=== PATIENT | female | born 1940 | race Caucasian/White ===

== ENCOUNTER 2017-11-05 07:40 | Inpatient (IN) | payer MEDICARE, OTHER, SELFPAY ==
--- NOTE | 2017-10-29 10:12 | PCM.HP.BLA ---
History and Physical DATE OF SERVICE: 11/05/2017 SCHEDULED PROCEDURE: Left total hip arthroplasty HISTORY OF PRESENT ILLNESS: This is a 76-year-old female who is been having ongoing pain in bilateral hips for the past 2-3 years. Patient recently underwent a right total hip arthroplasty in July 2017. She is doing well from this procedure. She continues to have ongoing pain in the left hip. Patient was seen last year in 2017 for bilateral hip pain. Patient has increased pain going up and down stairs as well as for walking any amount of distance. She has difficult time with pain going from a seated to a standing position. She does state her balance is affected on her left hip. Patient has been through formal physical therapy with no significant relief in symptoms. Patient has been to a chiropractor in the past with minimal relief. Patient has tried oral medications in the past consisting of meloxicam with only temporary relief. She denies any previous surgery on the left hip. Patient does have medical history pertinent for previous blood clot in the left lung as well as pulmonary embolism. She has received previous clearance from her fitness supervisor Dr. Copeland. She currently denies any changes in her medical history. Patient denies any current chest pain, shortness of breath, fevers chills, or recent infections. After discussion with Dr. Rio Sanchez the patient would like to proceed with a left total hip arthroplasty. REVIEW OF SYSTEMS: ROS: Const: Denies change in appetite, fever,or weight change. CV: Denies chest pain, heart murmur and irregular heartbeat. Resp: Denies cough, pneumonia, SOB, tuberculosis and wheezing. GI: Reports constipation and diarrhea, but denies difficulty swallowing, heartburn, nausea, bloody stools and vomiting. : . (F Genital Sx) Urinary: denies incontinence. Musculo: Reports leg swelling, limp, trouble walking and weakness. Skin: Denies Raynaud's, history of shingles and tattoo. Neuro: Reports numbness/tingling but denies ambulatory dysfunction, dizziness and tremor. Psych: Denies anxiety, insomnia and stress. Iker/Lymph: Reports bleeding/bruising tendency, but denies anemia and past transfusion. Reviewed, no changes. PAST MEDICAL HISTORY: Advance Care Plan: Other Directive, LIVING WILL Effective Date: 04/29/2017 Other Directive, POA Effective Date: 04/29/2017 PMH: Medical Problems: Arthritis, Hypercholesterolemia, History Of Phlebitis Accidents: Fracture - LT ARM 1970 Surgical Hx: Hernia Repair Tonsillectomy - (1968) Fibroid Tumors Removed Hip Replacement RT - (07/30/2017) [email or web address] Anesthesia Complications: None Assistive Devices: Glasses Reviewed, no changes. SOCIAL HISTORY: SH: Marital: .Occupation: Retired.Work Status: Retired.Hand Dominance: Left-handed. Personal Habits: Cigarette Use: Former.Alcohol: Weekly use.Drug Use: Denies Use.Enjoy Exercising: Never Exercises. Reviewed, no changes. VITALS: Ht: 59 Wt: 146lb Wt k.226 BMI: 29.5 BP: 128/70 Pulse: 72 Resp: 16 T: 97.8 T: 36.6C ALLERGIES: Penicillin MEDICATIONS: Aspirin 81 mg 1po bid PRE-OP EXAM: General appearance:NORMAL Other: Eyes: Conjunctivae and lids: NORMAL Pupils: ERR Ears, Nose, Mouth, and Throat: NORMAL Other: Inspection of lips, teeth and gums: NORMAL Other: Neck: Examination of neck: no masses noted. Respiratory: Assessment of respiratory effort: NORMAL Other: Ausculation of lungs: clear to ausculation no wheeses, ronchi or rales. Cardiovascular: Ausculation of heart: regular rate and rhythem, positive systolic mummur, no gallops or rubs. Exam of carotid arteries: NORMAL Other: Gastrointestinal: Exam of abdomen: soft, nontender, nondistended bowel sounds present. Lymphatic: Palpation of nodes in neck: NORMAL Other: Palpation of nodes in Axillae: NORMAL Other: Neurological: see below Psychiatric: Orientation to time, place and person: NORMAL Other: Mood and affect: NORMAL Other: PHYSICAL EXAMINATION: She does walk with an antalgic gait on the left hip. Patient's right hip has incision well-healed with no evidence of any erythema or signs of infection. She does complain of tenderness to palpation over the anterior lateral left hip. She has limited range of motion on the left hip with increased pain with any attempted internal and external rotation. Sensation intact light touch. IMAGING STUDIES: X-rays were obtained at [facility] on October 29, 2017 including AP pelvis, AP left hip, and crossfire lateral left hip reveals severe osteoarthritis of left hip with complete loss of joint space, osteophyte formation, and subchondral sclerosis. Right hip reveals a right total hip arthroplasty sitting in good position without lucencies, subsidence, or loosening. No acute findings for fracture. IMPRESSION: 1. Severe left hip osteoarthritis 2. Presence of right total hip arthroplasty 3. History of blood clot and pulmonary embolism 4. Hypercholesterolemia PLAN: Dr. Sanchez did discuss and review with the patient all treatment options including surgical versus nonsurgical. Patient wishes to proceed with above-stated procedure. Potential risks, benefits, and complications of this procedure were discussed in detail including but not limited to , infection, nerve and blood vessel damage, persistent pain, numbness, tingling, paresthesias, blood clot, pulmonary embolism, and requirement for further surgery. The patient expressed full understanding has no further questions for the doctor. Patient does agree to proceed with the above-stated procedure and has signed the surgery consent form. Surgical clearance was obtained from patient's primary care physician Dr. Kumar ___ I have re-examined the patient. There are no clinical changes since date of exam. ___ See progress notes for changes. ___ Dictated on admission Date: Time: Signature:
[2017-10-29 10:20] VITALS: BP 114/57; PULSE 68; RESP 17; TEMP 37.2; O2SAT 97; BMI 29.5
[2017-10-29 11:03] LABS: Absolute Neutrophil Count 4.1 X10^3/uL (2.0-7.7); Basophil# 0.07 X10^3/uL; Basophil% 1.1 % (0-1); Eosinophils% 3.2 % (0-5); Hematocrit 35.9 % (37-47); Hemoglobin 11.6 g/dl (12.0-15.0); Lymphocyte % 22.5 % (19-41); Mean Corp Hgb Conc 32.3 g/gl (32-36); Mean Corpuscular Hgb 26.5 pg (27.0-32.0); Mean Corpuscular Volume 82.2 fL (81-99); Mean Platelet Vol. 9.4 fl (6.2-12.0); Monocyte# 0.45 X10^3/uL; Monocyte% 7.2 % (0-10); Neutrophil # 4.09 X10^3/uL (2.7-7.7); Platelet Count 204 K/mm3 (150-450); RBC Distribution Width CV 15.5 % (11.6-14.6); RBC Distribution Width SD 46.1 fl (35.1-43.9); Red Blood Count 4.37 M/mm3 (4.2-5.4); White Blood Count 6.2 K/mm3 (4.4-11.0)
[2017-10-29 11:04] LABS: POSITIVE COUNT NO; POSITIVE DIFFERENTIAL NO; POSITIVE MORPHOLOGY NO
[2017-10-29 11:12] LABS: Prothrombin Time (Protime)PT. 12.6 SECONDS (11.7-14.9)
[2017-10-29 11:13] LABS: Partial Thromboplast Time 24.6 Seconds (24.1-36.2)
[2017-10-29 11:33] LABS: AST(SGOT) 13 U/L (15-37); Alanine Aminotransfer ALT/SGPT 14 U/L (13-56); Albumin, Serum 3.2 g/dL (3.2-5.0); Alkaline Phosphatase 86 U/L (45-117); Anion Gap 8 (5-15); BUN 13 mg/dL (7-18); BUN/Creat Ratio 17.3 RATIO (10-20); Bilirubin, Direct 0.08 mg/dL (0.00-0.30); Calcium,Total 8.7 mg/dL (8.5-10.1); Chloride 106 mmol/L (98-107); Creatinine, Serum 0.75 mg/dL (0.55-1.02); EST Glomerular Filtration Rate 79 mL/min (>60); Est Glom Filt Rate - Afr Amer 96 mL/min (>60); Estimated Creatinine Clearance 49.24 ml/min; Globulin 4.1 g/dL (2.2-4.2); Glucose 129 mg/dL (74-106); Potassium 3.7 mmol/L (3.5-5.1); Protein, Total 7.3 g/dL (6.4-8.2); Sodium Level 141 mmol/L (136-145)
[2017-11-05] VITALS (12 sets, daily range): BP systolic 113–154; BP diastolic 53–91; PULSE 63–96; RESP 16–18; TEMP 36.3–37.1; O2SAT 91–99; BMI 29.5
--- NOTE | 2017-11-05 08:10 | RAD_ITS ---
STUDY: X-RAY - PELVIS AND LEFT HIP REASON FOR EXAM: Female, 76 years old. Postop left hip replacement TECHNIQUE: Radiological exam, hip, unilateral, with pelvis when performed; 1 view COMPARISON: 07/30/2017. FINDINGS: There is a non-specific bowel gas pattern. Normal visualized soft tissue structures. Normal bilateral iliac wings, sacroiliac joints and visualized sacrum. Normal bilateral superior and inferior pubic rami. Normal pubic symphysis. Normal bilateral ischial tuberosities. There are bilateral total hip arthroplasties. The arthroplasty on the left is recent and is in satisfactory position with no gross acute complication. RAD/Hip Min 2 Views (Portable) IMPRESSION: Grossly satisfactory appearance of bilateral hip arthroplasties. Electronically Signed: Chris Juan MD at 14:29 EST , Service support ,
[2017-11-05] MEDS: Acetaminophen 500 MG Tablet 1000 MG PO ×2 (08:24→21:18)
[2017-11-05] MEDS: oxyCODONE HCl Cr 10 MG Tablet PO (08:25)
[2017-11-05] MEDS: Celecoxib 200 MG Capsule 400 MG PO (08:25)
[2017-11-05] MEDS: Lactated Ringers 1,000 ML 999 ML IV (08:51)
[2017-11-05] MEDS: Clindamycin 600 MG/50 ML BAG 100 MG IV ×3 (10:22→21:20)
--- NOTE | 2017-11-05 10:37 | RAD_ITS ---
STUDY: X-RAY - PELVIS AND LEFT HIP REASON FOR EXAM: Female, 76 years old. Total hip preplacement TECHNIQUE: 7 C-arm views and 20 seconds fluoroscopy time. COMPARISON: None. FINDINGS: These views show a left hip arthroplasty in grossly satisfactory position. Correlate with procedure note. Electronically Signed: Chris Juan MD at 14:42 EST , Service support , RAD/Hip 1 view with Pelvis
--- NOTE | 2017-11-05 13:05 | PCM.OPRPT ---
Report of Operation Date of Procedure: 11/05/17 Pre-Operative Diagnosis: Left primary hip osteoarthritis Post-Operative Diagnosis: Left primary hip osteoarthritis Surgery/Procedure Performed:: Left direct anterior total hip replacement Description of Surgical Findings:: Stable hip with equal leg lengths car cleaning supervisor: Karin Wilkins Type of Anesthesia:: Spinal Anesthesiologist: Jose Dove Special Medications: 600 mg clindamycin, 1 g TXA at incision, 1 g TXA closure, 10 mg Decadron, joint cocktail (5 mg Duramorph, 30 mL of 0.5% Ropivicaine, 1000 units of epinephrine, 30 mg of Toradol) Specimen's removed: Bony cuts Estimated Blood Loss (mL): 300 Fluids Replaced: Crystalloid Description of Procedure: Components used: 1. [place] joyce femoral stem size 30 mm 2. [place] trident acetabular shell size 48 mm 3. [place] X3 polyethylene MDM liner 22.2 mm diameter, 38 mm outer diameter 4. Joyce 22.2 mm, 0mm femoral head 5. Joyce MDM metal liner alpha code D Brief history operative indications: 76 yo F who failed conservative measures for their hip osteoarthritis. X-rays were consistent with osteoarthritis including joint space narrowing, osteophyte formation and subchondral cysts. Total hip replacement was discussed with the patient with risks and benefits including but not limited to blood loss, DVTs, PEs, neurovascular damage, dislocation, general risks of anesthesia including loss of life. Patient demonstrated an understanding medical clearance is obtained the patient was consented for surgery. Procedure: On the date of procedure the patient's L hip was marked in the preoperative area. Patient was then taken back to the operating room where anesthesia assumed control of the C-spine and airway and administered anesthetic. Patient was transferred to the operating table and placed in the supine position. The hips were placed at the break of the bed and a sacral bump was placed. The L lower extremity was then prepped out in a sterile fashion using chlorhexidine while the surgeon scrubbed. Upon reentering the room the L lower extremity was draped in the standard orthopedic fashion and the incision was marked. A timeout was called and everyone agreed upon the side, the site, the procedure be performed, antibody given, and patient's identity. At this time incision was made through skin, subcutaneous tissue, and fat down to fascia. The fascia was then incised and the TFL was retracted laterally. A retractor was placed on the lateral border of the femoral neck. Attention was directed to the inferior portion of the approach and all crossing vessels were identified and appropriately coagulated. A retractor was then placed on the medial portion of the femoral neck. The anterior capsule was then cleared of all soft tissue and then H shaped capsulotomy was made. The retractors were then placed inside the capsule. The femoral neck was identified and a cleanup cut was made. At this time a power corkscrew was used to remove the femoral head. Attention was then turned toward the acetabulum where the soft tissues were appropriately retracted and the acetabulum was sequentially reamed to 47 mm. A 48 mm cup was then selected and impacted into place. MDM liner was impacted into place and locking mechanism was verified. The position of the acetabular cup was then verified under live fluoroscopy. The MDM liner was placed and locking mechanism was verified. Attention was then turned to the femur. Soft tissue releases on the medial and lateral femoral neck were appropriately done, the leg was externally rotated and lateralized. A Gallegos retractor was placed medially and proximally to the greater trochanter this allowed appropriate visualization and exposure of the femoral canal. Rongeour was then used to remove excess lateral bone. A canal finder and entry broach were used to open the proximal canal. Once we verified we were down the femoral canal we subsequently broached up to a size 33m [place] femur. The appropriate neck was placed in the previously selected head was trialed with a 0 mm neck. Traction was pulled and the hip was reduced with internal rotation. Once it was appropriately reduced and stability was checked. There was minimal shuck, equal leg lengths and appropriate stability with hyperextension and external rotation as well as with 90? flexion and internal rotation. Fluoroscopy was then also used to verify the position of the components and leg lengths using the contralateral side for comparison. The trial components were then dislocated the proximal femur was again exposed and the components were removed from the wound. The final components were verified and opened. The wound was copiously irrigated out with normal saline. The acetabulum was checked for any residual debris. The final components were cemented into place. After the cemented cured, traction and internal rotation were again used to reduce the hip. After adequate reduction the hip remained stable leg was couple millimeters longer. We attempted to remove the head from the [place] taper file a shorter neck in doing so the implant came out of the cement mantle. At this time live fluoroscopy was used to drill through the central core of the cement mantle. Osteotomes were used to remove the proximal cement mantle. We reamed the distal cement mantle. Once we are able to get the implant cemented deeper we then irrigated out the canal once more and we cemented the implant in. Once the cement had cured again a neck was trialed and the corresponding final implants were opened. Leg lengths are equal at this time. Final implants were then placed after dislocating trial implants. Final head was impacted and leg lengths were now equal with stable hip. The final components were once again checked with live fluoroscopy and were found to be satisfactory. The wound was then irrigated with normal saline once more, and hemostasis was obtained. Closure was then done using #1 Vicryl runner to close the fascia. A 2-0 vicryl interuppted sutures were used to close the subcutaneous skin. A 3-0 Monocryl and Steri-Strips were used for final skin closure. A Silverlon dressing was placed. Patient was awakened by anesthesia and transferred to the [facility]. Patient was then transferred to the PACU for recovery. Postoperative plan: Patient will get 24 hours postop antibiotics. Patient will get in-house physical therapy and will be weight-bear as tolerated. Patient will follow up in office in 2 weeks for a wound check and x-rays. Grafts/Implants Used: Joyce [place] stem - Complications None - Admit VTE Documentation VTE Present on Admission: No VTE Mechan Device Prophylaxis: SCD's, Thigh High TESHA Hose VTE Pharm Prophylaxis ordered?: Yes
--- NOTE | 2017-11-05 13:13 | OP.PCM_ITS ---
Report of Operation Date of Procedure: 11/05/17 Pre-Operative Diagnosis: Left primary hip osteoarthritis Post-Operative Diagnosis: Left primary hip osteoarthritis Surgery/Procedure Performed:: Left direct anterior total hip replacement Description of Surgical Findings:: Stable hip with equal leg lengths internal grinding machine operator: Karin Wilkins Type of Anesthesia:: Spinal Anesthesiologist: Jose Dove Special Medications: 600 mg clindamycin, 1 g TXA at incision, 1 g TXA closure, 10 mg Decadron, joint cocktail (5 mg Duramorph, 30 mL of 0.5% Ropivicaine, 1000 units of epinephrine, 30 mg of Toradol) Specimen's removed: Bony cuts Estimated Blood Loss (mL): 300 Fluids Replaced: Crystalloid Description of Procedure: Components used: 1. [place] joyce femoral stem size 30 mm 2. [place] trident acetabular shell size 48 mm 3. [place] X3 polyethylene MDM liner 22.2 mm diameter, 38 mm outer diameter 4. Joyce 22.2 mm, 0mm femoral head 5. Joyce MDM metal liner alpha code D Brief history operative indications: 76 yo F who failed conservative measures for their hip osteoarthritis. X-rays were consistent with osteoarthritis including joint space narrowing, osteophyte formation and subchondral cysts. Total hip replacement was discussed with the patient with risks and benefits including but not limited to blood loss, DVTs, PEs, neurovascular damage, dislocation, general risks of anesthesia including loss of life. Patient demonstrated an understanding medical clearance is obtained the patient was consented for surgery. Procedure: On the date of procedure the patient's L hip was marked in the preoperative area. Patient was then taken back to the operating room where anesthesia assumed control of the C-spine and airway and administered anesthetic. Patient was transferred to the operating table and placed in the supine position. The hips were placed at the break of the bed and a sacral bump was placed. The L lower extremity was then prepped out in a sterile fashion using chlorhexidine while the surgeon scrubbed. Upon reentering the room the L lower extremity was draped in the standard orthopedic fashion and the incision was marked. A timeout was called and everyone agreed upon the side, the site, the procedure be performed, antibody given, and patient's identity. At this time incision was made through skin, subcutaneous tissue, and fat down to fascia. The fascia was then incised and the TFL was retracted laterally. A retractor was placed on the lateral border of the femoral neck. Attention was directed to the inferior portion of the approach and all crossing vessels were identified and appropriately coagulated. A retractor was then placed on the medial portion of the femoral neck. The anterior capsule was then cleared of all soft tissue and then H shaped capsulotomy was made. The retractors were then placed inside the capsule. The femoral neck was identified and a cleanup cut was made. At this time a power corkscrew was used to remove the femoral head. Attention was then turned toward the acetabulum where the soft tissues were appropriately retracted and the acetabulum was sequentially reamed to 47 mm. A 48 mm cup was then selected and impacted into place. MDM liner was impacted into place and locking mechanism was verified. The position of the acetabular cup was then verified under live fluoroscopy. The MDM liner was placed and locking mechanism was verified. Attention was then turned to the femur. Soft tissue releases on the medial and lateral femoral neck were appropriately done, the leg was externally rotated and lateralized. A Gallegos retractor was placed medially and proximally to the greater trochanter this allowed appropriate visualization and exposure of the femoral canal. Rongeour was then used to remove excess lateral bone. A canal finder and entry broach were used to open the proximal canal. Once we verified we were down the femoral canal we subsequently broached up to a size 33m [place] femur. The appropriate neck was placed in the previously selected head was trialed with a 0 mm neck. Traction was pulled and the hip was reduced with internal rotation. Once it was appropriately reduced and stability was checked. There was minimal shuck, equal leg lengths and appropriate stability with hyperextension and external rotation as well as with 90? flexion and internal rotation. Fluoroscopy was then also used to verify the position of the components and leg lengths using the contralateral side for comparison. The trial components were then dislocated the proximal femur was again exposed and the components were removed from the wound. The final components were verified and opened. The wound was copiously irrigated out with normal saline. The acetabulum was checked for any residual debris. The final components were cemented into place. After the cemented cured, traction and internal rotation were again used to reduce the hip. After adequate reduction the hip remained stable leg was couple millimeters longer. We attempted to remove the head from the [place] taper file a shorter neck in doing so the implant came out of the cement mantle. At this time live fluoroscopy was used to drill through the central core of the cement mantle. Osteotomes were used to remove the proximal cement mantle. We reamed the distal cement mantle. Once we are able to get the implant cemented deeper we then irrigated out the canal once more and we cemented the implant in. Once the cement had cured again a neck was trialed and the corresponding final implants were opened. Leg lengths are equal at this time. Final implants were then placed after dislocating trial implants. Final head was impacted and leg lengths were now equal with stable hip. The final components were once again checked with live fluoroscopy and were found to be satisfactory. The wound was then irrigated with normal saline once more, and hemostasis was obtained. Closure was then done using #1 Vicryl runner to close the fascia. A 2-0 vicryl interuppted sutures were used to close the subcutaneous skin. A 3-0 Monocryl and Steri-Strips were used for final skin closure. A Silverlon dressing was placed. Patient was awakened by anesthesia and transferred to the [facility]. Patient was then transferred to the PACU for recovery. Postoperative plan: Patient will get 24 hours postop antibiotics. Patient will get in-house physical therapy and will be weight-bear as tolerated. Patient will follow up in office in 2 weeks for a wound check and x-rays. Grafts/Implants Used: Joyce [place] stem - Complications None - Admit VTE Documentation VTE Present on Admission: No VTE Mechan Device Prophylaxis: SCD's, Thigh High TESHA Hose VTE Pharm Prophylaxis ordered?: Yes
[2017-11-05] MEDS: Scopolamine 1mg/72hr Patch 1 PATCH TD (14:22)
[2017-11-05] MEDS: Lactated Ringers 1,000 ML 125 ML IV (20:10)
[2017-11-05] MEDS: Famotidine 20 MG Tablet PO (21:18)
[2017-11-05] MEDS: Senna/Docusate Sodium 1 Tablet 2 TABLET PO (21:19)
[2017-11-06 02:00] VITALS: BP 100/54; PULSE 72; RESP 18; TEMP 36.4; O2SAT 94
[2017-11-06] MEDS: Clindamycin 600 MG/50 ML BAG 100 MG IV (04:07)
[2017-11-06] MEDS: oxyCODONE 5 MG Tablet PO ×3 (04:19→18:20)
[2017-11-06] MEDS: 0.9% NaCl Peripheral Flush Adult/Peds IV ×2 (05:37→22:27)
[2017-11-06] MEDS: Acetaminophen 500 MG Tablet 1000 MG PO ×3 (05:38→22:27)
[2017-11-06] MEDS: Rivaroxaban 10 MG Tablet PO (05:38)
[2017-11-06 06:34] LABS: Anion Gap 7 (5-15); BUN 10 mg/dL (7-18); BUN/Creat Ratio 13.3 RATIO (10-20); Chloride 107 mmol/L (98-107); Creatinine, Serum 0.75 mg/dL (0.55-1.02); EST Glomerular Filtration Rate 79 mL/min (>60); Est Glom Filt Rate - Afr Amer 96 mL/min (>60); Estimated Creatinine Clearance 49.24 ml/min; Glucose 164 mg/dL (74-106); Potassium 4.3 mmol/L (3.5-5.1); Sodium Level 141 mmol/L (136-145)
[2017-11-06 06:45] LABS: Hematocrit 26.9 % (37-47); Hemoglobin 8.4 g/dl (12.0-15.0); Mean Corp Hgb Conc 31.2 g/gl (32-36); Mean Corpuscular Hgb 26.3 pg (27.0-32.0); Mean Corpuscular Volume 84.3 fL (81-99); Mean Platelet Vol. 9.9 fl (6.2-12.0); Platelet Count 185 K/mm3 (150-450); RBC Distribution Width CV 15.2 % (11.6-14.6); RBC Distribution Width SD 45.8 fl (35.1-43.9); Red Blood Count 3.19 M/mm3 (4.2-5.4); White Blood Count 10.7 K/mm3 (4.4-11.0)
[2017-11-06 07:01] LABS: Scan Indicated on CBC? Y/N NO
--- NOTE | 2017-11-06 07:26 | PCM.PN.ORT ---
Subjective: The patient was sitting in bed upon examination. Patient denies any chest pain, shortness of breath, dizziness, lightheadedness, nausea or vomiting, or calf pain. Pain is controlled on medications. No adverse overnight events. Patient plans to go back to [facility]. Case management is on board with assisting with placement. Objective: Vital signs stable and afebrile. Patient is able to plantarflex and dorsiflex actively. Sensation is intact to light touch to saphenous, sural, superficial and deep peroneal, and tibial distribution. Dressing is clean dry and intact. Negative Homans bilaterally, negative signs and symptoms of DVT. - Physical Exam General: Alert, Oriented x3, Cooperative, No apparent distress Vital Signs Temp Pulse Resp BP Pulse Ox 97.5 F L 72 18 100/54 L 94 11/06/17 02:00 11/06/17 02:00 11/06/17 02:00 11/06/17 02:00 11/06/17 02:00 Oxygen Flow Rate 2 Oxygen Delivery Method Room Air Weight: 66.2 kg Body Mass Index (BMI) 29.5 Intake and Output for Last 24 Hours 11/04/17 11/05/17 11/06/17 23:59 23:59 23:59 Intake Total 2727 / 2727 1754 / 1754 Output Total 1100 / 1100 Balance 2727 / 2727 654 / 654 Laboratory Tests Past 24 Hrs 11/06/17 11/06/17 05:58 05:58 WBC 10.7 RBC 3.19 L Hgb 8.4 L Hct 26.9 L MCV 84.3 MCH 26.3 L MCHC 31.2 L RDW 15.2 H RDW Differential 45.8 H Plt Count 185 MPV 9.9 Sodium 141 Potassium 4.3 Chloride 107 Carbon Dioxide 27.0 Anion Gap 7 BUN 10 Creatinine 0.75 Estim Creat Clear Calc 49.24 Est GFR (MDRD) Af Amer 96 Est GFR (MDRD) Non-Af 79 BUN/Creatinine Ratio 13.3 Glucose 164 H Calcium 8.0 L Assessment/Plan 1. S/P left total hip arthroplasty POD #1 2. Continue Pain Medications: Tylenol and OxyIR 3. DVT Prophylaxis: Xarelto 4. PT/OT: Weightbearing as tolerated 5. H & H: 8.4/26.9, asymptomatic 6. Encouraged Incentive Spirometry 7. Disposition: Plan will be for possible discharge tomorrow to [facility] living. Case management involved with placement.
--- NOTE | 2017-11-06 07:29 | PN.ORTHO_ITS ---
Subjective: The patient was sitting in bed upon examination. Patient denies any chest pain , shortness of breath, dizziness, lightheadedness, nausea or vomiting, or calf pain. Pain is controlled on medications. No adverse overnight events. Patient plans to go back to [facility]. Case management is on board with assisting with placement. Objective: Vital signs stable and afebrile. Patient is able to plantarflex and dorsiflex actively. Sensation is intact to light touch to saphenous, sural, superficial and deep peroneal, and tibial distribution. Dressing is clean dry and intact. Negative Homans bilaterally, negative signs and symptoms of DVT. - Physical Exam General: Alert, Oriented x3, Cooperative, No apparent distress Vital Signs Temp Pulse Resp BP Pulse Ox 97.5 F L 72 18 100/54 L 94 11/06/17 02:00 11/06/17 02:00 11/06/17 02:00 11/06/17 02:00 11/06/17 02:00 Oxygen Flow Rate 2 Oxygen Delivery Method Room Air Weight: 66.2 kg Body Mass Index (BMI) 29.5 Intake and Output for Last 24 Hours 11/04/17 11/05/17 11/06/17 23:59 23:59 23:59 Intake Total 2727 / 2727 1754 / 1754 Output Total 1100 / 1100 Balance 2727 / 2727 654 / 654 Laboratory Tests Past 24 Hrs 11/06/17 11/06/17 05:58 05:58 WBC 10.7 RBC 3.19 L Hgb 8.4 L Hct 26.9 L MCV 84.3 MCH 26.3 L MCHC 31.2 L RDW 15.2 H RDW Differential 45.8 H Plt Count 185 MPV 9.9 Sodium 141 Potassium 4.3 Chloride 107 Carbon Dioxide 27.0 Anion Gap 7 BUN 10 Creatinine 0.75 Estim Creat Clear Calc 49.24 Est GFR (MDRD) Af Amer 96 Est GFR (MDRD) Non-Af 79 BUN/Creatinine Ratio 13.3 Glucose 164 H Calcium 8.0 L Assessment/Plan 1. S/P left total hip arthroplasty POD #1 2. Continue Pain Medications: Tylenol and OxyIR 3. DVT Prophylaxis: Xarelto 4. PT/OT: Weightbearing as tolerated 5. H & H: 8.4/26.9, asymptomatic 6. Encouraged Incentive Spirometry 7. Disposition: Plan will be for possible discharge tomorrow to [facility] living. Case management involved with placement.
[2017-11-06] MEDS: Aspirin E.C. 81 MG Tablet PO (08:24)
[2017-11-06] MEDS: Famotidine 20 MG Tablet PO (08:24)
[2017-11-06] MEDS: Ascorbic Acid 500 MG Tablet PO (08:24)
[2017-11-06] MEDS: Senna/Docusate Sodium 1 Tablet 2 TABLET PO ×2 (08:24→22:27)
[2017-11-06 08:30] VITALS: BP 94/80; PULSE 62; RESP 18; TEMP 36.7; O2SAT 95
--- NOTE | 2017-11-06 08:32 | CASEMGMT ---
Social Work Note Note from staff that pt's son, Brett Reyes, is POA with numbers listed. Placed call to Brett who states that the pt is at independent living at [facility] and to coordinate with Eri, admissions at [facility], for a short respite stay at assisted living before returning to independent living as after her last surgery she went to independent and the first few days were very difficult. Placed call to Eri at [facility], . Eri confirms that plan is to go to assisted living prior to return to independent living and she will fax and H&P form for physician to sign as they will need this completed for her to be admitted to [facility]. Clinical updates faxed and SW to continue to follow and assist with discharge. Anticipate discharge tomorrow, 11/07. Plan: [facility]. Terri Barboza, CHIEF OF VITAL STATISTICS, STUD SETTER
[2017-11-06 14:00] VITALS: BP 114/58; PULSE 88; RESP 18; TEMP 36.7; O2SAT 95
[2017-11-06 20:00] VITALS: BP 105/48; PULSE 86; RESP 16; TEMP 36.9; O2SAT 94
[2017-11-07 02:00] VITALS: BP 113/60; PULSE 81; RESP 18; TEMP 36.9; O2SAT 94
[2017-11-07] MEDS: Ketorolac 15 MG/ML Vial IV (02:00)
[2017-11-07] MEDS: 0.9% NaCl Peripheral Flush Adult/Peds IV (02:01)
[2017-11-07 06:22] LABS: Hematocrit 26.3 % (37-47); Hemoglobin 8.2 g/dl (12.0-15.0); Mean Corp Hgb Conc 31.2 g/gl (32-36); Mean Corpuscular Hgb 26.1 pg (27.0-32.0); Mean Corpuscular Volume 83.8 fL (81-99); Mean Platelet Vol. 9.7 fl (6.2-12.0); Platelet Count 168 K/mm3 (150-450); RBC Distribution Width CV 16.1 % (11.6-14.6); RBC Distribution Width SD 49.1 fl (35.1-43.9); Red Blood Count 3.14 M/mm3 (4.2-5.4); White Blood Count 8.9 K/mm3 (4.4-11.0)
[2017-11-07 06:23] LABS: Scan Indicated on CBC? Y/N NO
--- NOTE | 2017-11-07 06:46 | PCM.PN.ORT ---
Subjective: The patient was sitting in bedside chair upon examination. Patient denies any chest pain, shortness of breath, dizziness, lightheadedness, nausea or vomiting, or calf pain. No adverse overnight events. Patient does say she has difficult time with performing straight leg raise and does complain of pain in the anterior thigh. Patient states physical therapy has been difficult and does cause pain. Pain medications are helping. Plan is for patient to return [facility] living when ready for discharge. Objective: Vital signs stable and afebrile. Patient is able to plantarflex and dorsiflex actively. Sensation is intact to light touch to saphenous, sural, superficial and deep peroneal, and tibial distribution. Dressing is clean dry and intact. Swelling to left thigh, soft and supple Negative Homans bilaterally, negative signs and symptoms of DVT. - Physical Exam General: Alert, Oriented x3, Cooperative, No apparent distress Vital Signs Temp Pulse Resp BP Pulse Ox 98.5 F 81 18 113/60 94 11/07/17 02:00 11/07/17 02:00 11/07/17 02:00 11/07/17 02:00 11/07/17 02:00 Oxygen Flow Rate 2 Oxygen Delivery Method Room Air Weight: 66.2 kg Body Mass Index (BMI) 29.5 Intake and Output for Last 24 Hours 11/05/17 11/06/17 11/07/17 23:59 23:59 23:59 Intake Total 2727 / 2727 2654 / 2654 260 / 260 Output Total 1600 / 1600 Balance 2727 / 2727 1054 / 1054 260 / 260 Laboratory Tests Past 24 Hrs 11/06/17 11/07/17 05:58 05:35 WBC 10.7 8.9 RBC 3.19 L 3.14 L Hgb 8.4 L 8.2 L Hct 26.9 L 26.3 L MCV 84.3 83.8 MCH 26.3 L 26.1 L MCHC 31.2 L 31.2 L RDW 15.2 H 16.1 H RDW Differential 45.8 H 49.1 H Plt Count 185 168 MPV 9.9 9.7 Assessment/Plan 1. S/P left total hip arthroplasty POD # 2. Continue Pain Medications: Tylenol and OxyIR 3. DVT Prophylaxis: Xarelto 4. PT/OT: Weightbearing as tolerated 5. H & H: 8.2/26.3, asymptomatic 6. Encouraged Incentive Spirometry 7. Disposition: Plan will be for possible discharge today to [facility] if patient tolerates physical therapy and pain is controlled on medications. Prescriptions will be attached to chart. Patient will follow-up per postop instructions.
--- NOTE | 2017-11-07 06:53 | PN.ORTHO_ITS ---
Subjective: The patient was sitting in bedside chair upon examination. Patient denies any chest pain, shortness of breath, dizziness, lightheadedness, nausea or vomiting , or calf pain. No adverse overnight events. Patient does say she has difficult time with performing straight leg raise and does complain of pain in the anterior thigh. Patient states physical therapy has been difficult and does cause pain. Pain medications are helping. Plan is for patient to return [facility] living when ready for discharge. Objective: Vital signs stable and afebrile. Patient is able to plantarflex and dorsiflex actively. Sensation is intact to light touch to saphenous, sural, superficial and deep peroneal, and tibial distribution. Dressing is clean dry and intact. Swelling to left thigh, soft and supple Negative Homans bilaterally, negative signs and symptoms of DVT. - Physical Exam General: Alert, Oriented x3, Cooperative, No apparent distress Vital Signs Temp Pulse Resp BP Pulse Ox 98.5 F 81 18 113/60 94 11/07/17 02:00 11/07/17 02:00 11/07/17 02:00 11/07/17 02:00 11/07/17 02:00 Oxygen Flow Rate 2 Oxygen Delivery Method Room Air Weight: 66.2 kg Body Mass Index (BMI) 29.5 Intake and Output for Last 24 Hours 11/05/17 11/06/17 11/07/17 23:59 23:59 23:59 Intake Total 2727 / 2727 2654 / 2654 260 / 260 Output Total 1600 / 1600 Balance 2727 / 2727 1054 / 1054 260 / 260 Laboratory Tests Past 24 Hrs 11/06/17 11/07/17 05:58 05:35 WBC 10.7 8.9 RBC 3.19 L 3.14 L Hgb 8.4 L 8.2 L Hct 26.9 L 26.3 L MCV 84.3 83.8 MCH 26.3 L 26.1 L MCHC 31.2 L 31.2 L RDW 15.2 H 16.1 H RDW Differential 45.8 H 49.1 H Plt Count 185 168 MPV 9.9 9.7 Assessment/Plan 1. S/P left total hip arthroplasty POD # 2. Continue Pain Medications: Tylenol and OxyIR 3. DVT Prophylaxis: Xarelto 4. PT/OT: Weightbearing as tolerated 5. H & H: 8.2/26.3, asymptomatic 6. Encouraged Incentive Spirometry 7. Disposition: Plan will be for possible discharge today to [facility] if patient tolerates physical therapy and pain is controlled on medications. Prescriptions will be attached to chart. Patient will follow-up per postop instructions.
--- NOTE | 2017-11-07 06:57 | PCM.DC.THR ---
Discharge Diet: No Restrictions Discharge Activity: May Not Drive - while taking narcotic pain medications. May shower in (days): 1 - Turned dressing away from water Weight Bearing Status: Weight bearing as tolerated Additional Activity Instructions:: Wear elastic stockings for 2 weeks. DO NOT use alcohol with narcotic pain medication. DO NOT make important decisions while taking narcotic medication. If you have problems with taking your medication (rash, itching, nausea, etc.) call the office at once. Call your doctor if your incision/area has: Increased Pain/ Swelling, Increased Redness, Foul Smelling Discharge Call your doctor if you observe: Fever of 101 or Higher Remove Dressing in (days):: 3 - Okay to remove on November 10, 2017 Additional Instructions: Follow [facility] postop instructions Allergies/Adverse Reactions: Allergies Penicillins [PCN] Allergy (Verified 10/29/17 10:14) Swelling Medications to take at Discharge Aspirin [Aspirin EC] 81 mg PO DAILY 07/18/17 Ascorbic Acid [Vitamin C] 500 mg PO DAILY 10/29/17 Cholecalciferol (Vitamin D3) [Vitamin D3] 1,000 unit PO DAILY 10/29/17 Acetaminophen [Tylenol] 1,000 mg PO Q8 #90 tab 11/07/17 Oxycodone [Oxyir] 5 - 10 mg PO Q4H PRN PRN 7 Days #80 tab 11/07/17 Rivaroxaban [Xarelto] 10 mg PO DAILY@0600 #12 tab 11/07/17 Senna/Docusate Sodium [Senokot-S] 2 tab PO BID #20 tab 11/07/17 The following prescriptions were given: Oxycodone [Oxyir] 5 - 10 mg PO Q4H PRN PRN 7 Days #80 tab PRN Reason: Mod-Severe Pain (4-10/10) Acetaminophen [Tylenol] 1,000 mg PO Q8 #90 tab Rivaroxaban [Xarelto] 10 mg PO DAILY@0600 #12 tab Senna/Docusate Sodium [Senokot-S] 2 tab PO BID #20 tab Primary Care Physician: Joel Kumar MD [Primary Care Provider] - Please Follow Up With: Physical therapy at [facility] Please Follow Up With: Reji Wright PA-C When: 11/19/17 @ 8:45 am
[2017-11-07] MEDS: Rivaroxaban 10 MG Tablet PO (07:03)
[2017-11-07] MEDS: Acetaminophen 500 MG Tablet 1000 MG PO ×2 (07:03→13:38)
[2017-11-07 08:00] VITALS: BP 136/59; PULSE 73; RESP 16; TEMP 36.6; O2SAT 95
[2017-11-07] MEDS: Famotidine 20 MG Tablet PO (08:16)
[2017-11-07] MEDS: Ascorbic Acid 500 MG Tablet PO (08:16)
[2017-11-07] MEDS: Aspirin E.C. 81 MG Tablet PO (08:16)
[2017-11-07] MEDS: oxyCODONE 5 MG Tablet PO ×2 (08:18→15:55)
--- NOTE | 2017-11-07 09:05 | PCA ---
pt in therapy
[2017-11-07 13:33] VITALS: BP 125/71; PULSE 78; RESP 16; TEMP 36.8; O2SAT 98
--- NOTE | 2017-11-07 17:44 | NURSING ---
Farzad Wright called in at 1530 to states that he was going to d/c patient. Notified by Diamond Jensen that the [employer] van only runs until 1600. This RN called Sharon at 1532- verified that they would be able to supervisor picking crew patient. Notified that they could at 1600. This RN called retail pharmacy and notified of situation and asked if they could fill script so that it is ready in 30minutes- notified that they would try. this RN received call at 1555 stating that the bill for xarelto alone would be >$100.00. Patient shocked- Farzad Gradyjeanmariefina notified and states she must have medication xarelto that is expensive due to history of blood clots. Notified of cost- again states she must have medication. Notified patient and she states that she has insurance and to check if her insurance is on file. Notified from [employer] that [employer]a is on file but that was all. Patient states she has medical mutual. At this time advanced quality engineer arrived. This RN asked if she had a card, she states she couldn't find it and requested this RN call her son Brett. Pt notified that her prescriptions will cost $186. This RN called Brett and at that moment patient states she found her medical [employer] card and handed it to this RN. This RN notified Brett of patient's discharge at this time. Then, this RN called pharmacy to notify them of patient's card- [employer] requested pharmacy number from card- card did not have a number. [employer] states there should be a separate card for pharmacy. This RN asked patient as she sifted through her cards- could not locate one. Patient asked this RN to contact her son again- this RN called him and he states he doesn't have any cards off hand, as he is at work. Notified of cost of 186 and he states to just get the prescription papers and send them with patient. States he will have time to get them filled. patient given prn oxyir and assisted downstairs to [employer] with this RN and the [employer] stage driver. This RN picked up patient's prescriptions for her and she folded all 4 and stuck in her pocket. Patient very discouraged with issues- apologies offered.
== END 2017-11-07 16:26 | disposition home or self-care (01) | DRG 470 ==
PROVIDERS: Anesthesiology; Admitting Provider Specialist; Family Provider Family Medicine; PCP Family Medicine; Visit Provider Specialist
PROC: 0SRB0J9 Replacement of Left Hip Joint with Synthetic Substitute, Cemented, Open Approach (ICD-10-PCS; CPT 27284; principal; 2017-11-05 09:35)
DX: M16.12 Unilateral primary osteoarthritis, left hip (principal); E78.00 Pure hypercholesterolemia, unspecified; Z86.711 Personal history of pulmonary embolism; Z96.651 Presence of right artificial knee joint
CPT/HCPCS: 36415; 73501; 73502; 76000; 80048; 80076; 85025; 85027; 85610; 85730; 87081; 97110; 97116; 97162; 97165; 97530; 97535; 97802; 99251; J7120; A4216; G0463; J2405

== ENCOUNTER 2018-05-14 12:15 | Emergency (ER) | payer MEDICARE, OTHER, SELFPAY ==
[2018-05-14 12:16] VITALS: BP 139/72; PULSE 73; RESP 16; TEMP 36.8; O2SAT 99; BMI 28.5
--- NOTE | 2018-05-14 13:14 | ED.VISSUMM ---
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 She has had bilateral hip replacements. Earlier this year. She is undergoing physical therapy. States she had physical therapy several days ago. She was concerned because she has discomfort in her anterior and posterior right lower leg and calf. She had a prior blood clot was concerned that it could be a blood clot versus just overuse of the leg with therapy. She denies any falls or trauma. No fever. She denies any significant hip, knee or ankle pain. She denies any redness, swelling or fever. Physical Examination: Well-appearing older female. Vital signs are stable afebrile. Pulse ox 99% on room air no hypoxia. No distress. H EENT exam unremarkable. Neck nontender. Lungs clear to auscultation bilaterally. Heart regular rhythm no murmur. Abdomen soft nontender. Extremities moves all 4. Right calf has mild tenderness both anteriorly and posterior. There is no cords. No edema. She does have varicose veins. There is no signs of phlebitis. Otherwise the hamstring and thigh are nontender. She has normal range of motion to her right ankle. Dorsi and plantar flexion intact. Normal motor strength and sensation. Normal DP pulse. There is no redness or warmth. Back exam is nontender no SI tenderness on the right. Neurologic exam is normal. She is awake alert with no focal motor deficits. Test Results: Right leg venous study per the component technician shows no DVT. Emergency Department Course and Treatment: Clinically I think the patient just has musculoskeletal pain. This does not appear to be a DVT. Treatment Plan: Repeat exam unchanged at 1333. Patient be discharged home. Tylenol and Motrin for pain. Disposition: Discharge Impression: Acute right lower extremity musculoskeletal strain This note was generated with [employer] dictation software. It may contain incorrect words, spelling, and punctuation that were not noted in review of the chart prior to signing ED Disposition - Plan for ED Patient: Chief Complaint: Lower Extremity Injury Referrals: Joel Kumar MD [Primary Care Provider] -
--- NOTE | 2018-05-14 13:17 | ED.DCSUM_ITS ---
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 She has had bilateral hip replacements. Earlier this year. She is undergoing physical therapy. States she had physical therapy several days ago. She was concerned because she has discomfort in her anterior and posterior right lower leg and calf. She had a prior blood clot was concerned that it could be a blood clot versus just overuse of the leg with therapy. She denies any falls or trauma. No fever. She denies any significant hip, knee or ankle pain. She denies any redness, swelling or fever. Physical Examination: Well-appearing older female. Vital signs are stable afebrile. Pulse ox 99% on room air no hypoxia. No distress. H EENT exam unremarkable. Neck nontender. Lungs clear to auscultation bilaterally. Heart regular rhythm no murmur. Abdomen soft nontender. Extremities moves all 4. Right calf has mild tenderness both anteriorly and posterior. There is no cords. No edema. She does have varicose veins. There is no signs of phlebitis. Otherwise the hamstring and thigh are nontender. She has normal range of motion to her right ankle. Dorsi and plantar flexion intact. Normal motor strength and sensation. Normal DP pulse. There is no redness or warmth. Back exam is nontender no SI tenderness on the right. Neurologic exam is normal. She is awake alert with no focal motor deficits. Test Results: Right leg venous study per the hemodialysis technician shows no DVT. Emergency Department Course and Treatment: Clinically I think the patient just has musculoskeletal pain. This does not appear to be a DVT. Treatment Plan: Repeat exam unchanged at 1333. Patient be discharged home. Tylenol and Motrin for pain. Disposition: Discharge Impression: Acute right lower extremity musculoskeletal strain This note was generated with [employer] dictation software. It may contain incorrect words, spelling, and punctuation that were not noted in review of the chart prior to signing ED Disposition - Plan for ED Patient: Chief Complaint: Lower Extremity Injury Referrals: Joel Kumar MD [Primary Care Provider] -
--- NOTE | 2018-05-14 13:34 | ED.DEP ---
ED Disposition - Plan for ED Patient: Disposition: Home or Assisted Living Chief Complaint: Lower Extremity Injury Instructions: ED Strain Muscle Ext Referrals: Joel Kumar MD [Primary Care Provider] - 1 Week if not improving Additional Instructions: Plenty of fluids. The ultrasound showed no signs of any blood clot. Tylenol and Motrin for pain. Most likely this is just strained muscles from overuse.
[2018-05-14 13:43] VITALS: RESP 14
== END 2018-05-14 13:58 | disposition home or self-care (01) ==
PROVIDERS: Emergency Provider Emergency Medicine; Family Provider Family Medicine; PCP Family Medicine
DX: S86.211A Strain of muscle(s) and tendon(s) of anterior muscle group at lower leg level, right leg, initial encounter (principal); S86.111A Strain of other muscle(s) and tendon(s) of posterior muscle group at lower leg level, right leg, initial encounter; Z86.718 Personal history of other venous thrombosis and embolism; M19.90 Unspecified osteoarthritis, unspecified site; X58.XXXA Exposure to other specified factors, initial encounter; Y93.89 Activity, other specified; Y92.89 Other specified places as the place of occurrence of the external cause; Y99.9 Unspecified external cause status
CPT/HCPCS: 93971; 99282

== ENCOUNTER 2018-05-19 14:00 | Outpatient (RCR) | payer MEDICARE, OTHER, SELFPAY ==
--- NOTE | 2018-01-01 13:20 | HP.PTEVAL ---
Patient's Visit Information ROBERT READ is a 77 year old F referred to Physical Therapy by Robbie Sanchez MD with a diagnosis of B ARMOND. Date of Evaluation: 01/01/18 Physical Therapist: Aaron Gan, PT, - Visit Plan Frequency: 2-3x /Week Duration: 6 Weeks Plan: B LE stretching and strengthening, core stab ex's, balance and proprio ex's, gait training, nustep, and HEP - Subjective Subjective: DOS: R ARMOND August of 2017, then L ARMOND October 2017. Pt reports she had Bilat hip pain for 10 years prior to having the surgeries performed. Pt reports she is glad to have had the surgery secondary to alleviating the pain, but she is still very limited with her mobility. Pt reports she has had a little tingling in her R calf since having the surgery. No other Tor N in LE's. No sleep diff secondary to pain. Pt has not tried any stairs at this time. 0/10 at rest, 6/10 at worst (turning the wrong way, and sit to stand transfers after sitting a long period of time.) - Pain B hips Pain Intensity (Out of 10): 0 Pain Intensity Range: 6 - Objective Neuro: B LE sensation is WNL to light touch. MMT: B LE's 4-/5 throughout. ROM: B LE's are WFL. Gait: Pt was able to ambulate with use of SC and CGAx1 680 feet until needing to sit and rest - Goals Goal 1:: Decrease B hip pain x 50% to aid with increasing erika for ambulation Goal Time Frame: 4-6 Weeks Goal 2:: Increase B LE strength x 1 grade to aid with IADL's Goal Time Frame: 4-6 Weeks Goal 3:: Pt will be able to ambulate greater than 1000 feet with LRD to aid with community ambulation Goal Time Frame: 4-6 Weeks Goal 4:: I with HEP Goal Time Frame: 4-6 Weeks - Rehabilitation Potential Physical Therapy Diagnosis: Pt has B hip pain, weakness, and limitations with ambyulation secondary to B ARMOND's Rehabilitation Potential: Good - Anticipated Interventions Patient/Client Instruction: Educate patient on: Condition, Plan of Care For the Purpose of:: To improve self management Therapeutic Exercise to Include: Strength training, Endurance training, Balance training, Flexibilty training, Gait and locomotor training, Dynamic Lumbar Stabilization For the Purpose of:: To decrease pain, To improve muscle performance and motor function, To increase tolerance to activity/condition/position Cryotherapy (ice pack, ice massage): Yes For the Purpose of:: To decrease pain Thank you for the opportunity to evaluate your patient. For Medicare and Medicare HMO plans, please review the plan of care and approve it. It will need to be FAXED BACK to us at [phone] for Medicare purposes. Please let me know if there are questions or concerns regarding this plan of care. Physician Signature: Date:
--- NOTE | 2018-01-01 13:23 | HP.PTEVAL_ITS ---
Patient's Visit Information ROBERT READ is a 77 year old F referred to Physical Therapy by Robbie Sanchez MD with a diagnosis of B ARMOND. Date of Evaluation: 01/01/18 Physical Therapist: Aaron Gan, PT, - Visit Plan Frequency: 2-3x /Week Duration: 6 Weeks Plan: B LE stretching and strengthening, core stab ex's, balance and proprio ex' s, gait training, nustep, and HEP - Subjective Subjective: DOS: R ARMOND August of 2017, then L ARMOND October 2017. Pt reports she had Bilat hip pain for 10 years prior to having the surgeries performed. Pt reports she is glad to have had the surgery secondary to alleviating the pain, but she is still very limited with her mobility. Pt reports she has had a little tingling in her R calf since having the surgery. No other Tor N in LE's. No sleep diff secondary to pain. Pt has not tried any stairs at this time. 0/10 at rest, 6/10 at worst (turning the wrong way, and sit to stand transfers after sitting a long period of time.) - Pain B hips Pain Intensity (Out of 10): 0 Pain Intensity Range: 6 - Objective Neuro: B LE sensation is WNL to light touch. MMT: B LE's 4-/5 throughout. ROM : B LE's are WFL. Gait: Pt was able to ambulate with use of SC and CGAx1 680 feet until needing to sit and rest - Goals Goal 1:: Decrease B hip pain x 50% to aid with increasing erika for ambulation Goal Time Frame: 4-6 Weeks Goal 2:: Increase B LE strength x 1 grade to aid with IADL's Goal Time Frame: 4-6 Weeks Goal 3:: Pt will be able to ambulate greater than 1000 feet with LRD to aid with community ambulation Goal Time Frame: 4-6 Weeks Goal 4:: I with HEP Goal Time Frame: 4-6 Weeks - Rehabilitation Potential Physical Therapy Diagnosis: Pt has B hip pain, weakness, and limitations with ambyulation secondary to B ARMOND's Rehabilitation Potential: Good - Anticipated Interventions Patient/Client Instruction: Educate patient on: Condition, Plan of Care For the Purpose of:: To improve self management Therapeutic Exercise to Include: Strength training, Endurance training, Balance training, Flexibilty training, Gait and locomotor training, Dynamic Lumbar Stabilization For the Purpose of:: To decrease pain, To improve muscle performance and motor function, To increase tolerance to activity/condition/position Cryotherapy (ice pack, ice massage): Yes For the Purpose of:: To decrease pain Thank you for the opportunity to evaluate your patient. For Medicare and Medicare HMO plans, please review the plan of care and approve it. It will need to be FAXED BACK to us at [phone] for Medicare purposes. Please let me know if there are questions or concerns regarding this plan of care. Physician Signature: Date:
--- NOTE | 2018-05-19 14:48 | HP.PTDCSUM ---
HP - PT D/C Summary It has been my pleasure to treat ROBERT READ under orders from Robbie Sanchez MD, for the diagnosis of B ARMOND for a total of 24 visit(s). Discharge Date: Please see the following information for a summary of their discharge status. - Subjective Subjective: R gastroc region is sore today. 5/10. No hip pain this date - Pain B hips Pain Intensity (Out of 10): 0 - Objective Objective/Function: 0/10 pain in hips. B LE's MMT 5/5 throughout. Pt is able to amb greater than 1000' without AD. I with HEP. Rx goals achieved - Goals Goal 1:: Decrease B hip pain x 50% to aid with increasing erika for ambulation Goal Progress: Goal Met Goal 2:: Increase B LE strength x 1 grade to aid with IADL's Goal Progress: Goal Met Goal 3:: Pt will be able to ambulate greater than 1000 feet with LRD to aid with community ambulation Goal Progress: Goal Met Goal 4:: I with HEP Goal Progress: Goal Met - Plan Plan: Discharge - D/C Information If there are questions or concerns regarding this patient's physical therapy, please feel free to call me at [phone]. Thank you for the referral of this patient. Sincerely, Aaron Gan, PT,
== END 2018-05-19 14:56 | disposition home or self-care (01) ==
LOC: PT 14:00
PROVIDERS: Family Provider Family Medicine; PCP Family Medicine; Visit Provider Specialist
DX: Z96.652 Presence of left artificial knee joint (principal); Z47.1 Aftercare following joint replacement surgery
CPT/HCPCS: 97110; 97162; 97530; G8978; G8979

== ENCOUNTER → 2019-02-01 | Outpatient (CLI) | payer MEDICARE, OTHER, SELFPAY ==
[2019-02-01 14:26] LABS: Anion Gap 6 (5-15); BUN 15 mg/dL (7-18); BUN/Creat Ratio 15.8 RATIO (10-20); Calcium,Total 8.9 mg/dL (8.5-10.1); Chloride 110 mmol/L (98-107); Cholesterol 216 mg/dL (200); Creatinine, Serum 0.95 mg/dL (0.55-1.02); EST Glomerular Filtration Rate 60 mL/min (>60); Est Glom Filt Rate - Afr Amer 73 mL/min (>60); Glucose 103 mg/dL (74-106); High Density Lipoprotein 60 mg/dL; Potassium 3.8 mmol/L (3.5-5.1); Sodium Level 144 mmol/L (136-145); Triglycerides 86 mg/dL; Very Low Density Lipoprotein 17 mg/dL (5-40)
== END | disposition home or self-care (01) ==
LOC: MFPLAB 11:49
PROVIDERS: Family Provider Family Medicine; PCP Family Medicine; Visit Provider Nurse Practitioner Family
DX: E78.5 Hyperlipidemia, unspecified (principal); R73.09 Other abnormal glucose
CPT/HCPCS: 36415; 80048; 80061

== ENCOUNTER 2019-04-07 14:00 | Outpatient (RCR) | payer MEDICARE, OTHER, SELFPAY ==
--- NOTE | 2019-01-12 16:15 | HP.PTEVAL ---
Patient's Visit Information ROBERT READ is a 78 year old F referred to Physical Therapy by NIKOLAI Mathur with a diagnosis of LBP. Date of Evaluation: 01/12/19 Physical Therapist: Aaron Gan PT, ATC - Visit Plan Frequency: 2x /Week Duration: 4-6 Weeks Plan: SKTC/DKTC, core stab ex's, B LE strengthening, nustep, and HEP - Subjective Findings: Pt reports she has had LBP for about a month. Pt reports her pain had an insidious onset in nature. Pt believes her pain is due to arthritis and old age. Pt reports she had a recent xray which revealed Degenerative changes in her LB. No LE tingling or numbness at this time. Pt reports no sleep difficulty secondary to pain. Pt reports prolonged sitting and lifting increases her pain. Pt reports she also has difficulty with ambulating and standing for a long period of time. No PMHx of LBP. 6/10 at rest, 8/10 at worst (washing dishes and reaching for something) - Pain LBP Pain Intensity (Out of 10): 6 Pain Intensity Range: 8 - Objective Neuro: B LE sensation is WNL to light touch. B patellar reflex= 2/3. MMT: B LE strength is grossly 4-/5 throughout. ROM: L/S ext is moderately limited. all other movements WNL. Repeated movements: flex decreases pain SKTC/DKTC. Ext increases pain - Goals Goal 1:: Decrease LBP x 50% to aid with increasing tolerance for sitting Goal Time Frame: 4-6 Weeks Goal 2:: Increase B LE MMT to 5/5 to aid with stair negotiation Goal Time Frame: 4-6 Weeks Goal 3:: I with HEP Goal Time Frame: 4-6 Weeks - Rehabilitation Potential Physical Therapy Diagnosis: Pt has LBP, limited L/S ROM, and LE weakness secondary to degenerative changes in the L/S Rehabilitation Potential: Good - Anticipated Interventions Patient/Client Instruction: Educate patient on: Condition, Plan of Care For the Purpose of:: To improve self management Therapeutic Exercise to Include: Strength training, Endurance training, Postural training, Gait and locomotor training, Active ROM, Dynamic Lumbar Stabilization For the Purpose of:: To decrease pain, To increase ROM, To improve muscle performance and motor function Cryotherapy (ice pack, ice massage): Yes For the Purpose of:: To decrease pain Thank you for the opportunity to evaluate your patient. For Medicare and Medicare HMO plans, please review the plan of care and approve it. It will need to be FAXED BACK to us at [phone] for Medicare purposes. For Medicare only, by signing this I certify the plan of care. Please let me know if there are questions or concerns regarding this plan of care. Physician Signature: Date:
--- NOTE | 2019-02-11 11:59 | HP.PTREVAL ---
NIKOLAI Mathur, It has been my pleasure to treat ROBERT READ over the last 8 visits for LBP. Please see the progress note below for an update on the physical therapy plan of care! Subjective: Pt reports no pain this date Objective/Function: LBP 0/10 this date. B LE strength 4/5. Pt is now I with HEP. All Rx goals achieved with exception to increasing LE strength Plan Plan: Cont for 2 more Rx's to transition ex routine to I silver sneakers program consisting of LE strengthening and balance ex's Goals Goal 1:: Decrease LBP x 50% to aid with increasing tolerance for sitting Goal Time Frame: 4-6 Weeks Goal Progress: Goal Met Goal 2:: Increase B LE MMT to 5/5 to aid with stair negotiation Goal Time Frame: 4-6 Weeks Goal Progress: Goal Met Goal 3:: I with HEP Goal Time Frame: 4-6 Weeks Goal Progress: Goal Met Anticipated Interventions Patient/Client Instruction: Educate patient on: Condition, Plan of Care For the Purpose of:: To improve self management Therapeutic Exercise to Include: Strength training, Endurance training, Postural training, Gait and locomotor training, Active ROM, Dynamic Lumbar Stabilization For the Purpose of:: To decrease pain, To increase ROM, To improve muscle performance and motor function Cryotherapy (ice pack, ice massage): Yes For the Purpose of:: To decrease pain Please do not hesitate to contact me at [phone] by phone or if you have questions or concerns regarding this new plan of care! Sincerely, Aaron Gan, PT, ATC
--- NOTE | 2019-04-07 15:06 | HP.PTDCSUM ---
HP - PT D/C Summary It has been my pleasure to treat ROBERT READ under orders from NIKOLAI Mathur, for the diagnosis of LBP for a total of 13 visit(s). Discharge Date: Please see the following information for a summary of their discharge status. - Subjective Subjective: No pain this date - Pain LBP Pain Intensity (Out of 10): 0 - Overall Improvement % Improvement: 60 - Objective Objective/Function: Pt is now I with HEP - Goals Goal 1:: Decrease LBP x 50% to aid with increasing tolerance for sitting Goal Progress: Goal Met Goal 2:: Increase B LE MMT to 5/5 to aid with stair negotiation Goal Progress: Goal Met Goal 3:: I with HEP Goal Progress: Goal Met - Plan Plan: Discharge - D/C Information If there are questions or concerns regarding this patient's physical therapy, please feel free to call me at [phone]. Thank you for the referral of this patient. Sincerely, Aaron Gan, PT, ATC
== END 2019-04-07 17:12 | disposition home or self-care (01) ==
LOC: PT 14:00
PROVIDERS: Family Provider Family Medicine; PCP Family Medicine; Referring Provider Physician Assistant Surgical; Visit Provider Physician Assistant Surgical
DX: M54.5 Low back pain (principal); M51.36 Other intervertebral disc degeneration, lumbar region
CPT/HCPCS: 97110; 97161; 97530

== ENCOUNTER → 2019-04-12 | Outpatient (CLI) | payer MEDICARE, OTHER, SELFPAY ==
--- NOTE | 2019-04-12 16:40 | CT_ITS ---
STUDY: CT LEFT FEMUR WITHOUT CONTRAST REASON FOR EXAM: Female, 78 years old. Left femoral pain, history of hip replacement RADIATION DOSAGE (If Supplied By Facility): CTDIvol = ( 16.07 ) mGy, DLP = ( 853.85 ) mGycm TECHNIQUE: Transaxial CT imaging of the femur was performed. Sagittal and coronal images were reconstructed. Individualized dose optimization techniques were used for this CT. COMPARISON: Left hip on November 05, 2017 FINDINGS: Left hip prosthesis is noted in anatomic alignment and position.. There is focal intramedullary and cortical hypoattenuation just distal to the stem of the prosthesis which extends to the cortical surface. This could represent focal loosening or inflammatory changes although there is no bony destruction at this time. Three-phase bone scan would be helpful for further evaluation if clinically indicated. CT/Extremity Lower without Contra IMPRESSION: Findings which may be consistent with loosening or infection of the left hip prosthesis distal to the tip of the stem. Clinical correlation is recommended. Electronically Signed: Sergio Camarena MD at 16:27 EDT , Service support ,
== END | disposition home or self-care (01) ==
LOC: CT 16:36
PROVIDERS: Family Provider Family Medicine; PCP Family Medicine; Referring Provider Specialist; Visit Provider Specialist
DX: M79.652 Pain in left thigh (principal); Z96.642 Presence of left artificial hip joint
CPT/HCPCS: 73700

== ENCOUNTER 2019-09-14 13:00 | Outpatient (RCR) | payer MEDICARE, OTHER, SELFPAY ==
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
== END 2019-09-14 19:00 | disposition home or self-care (01) ==
LOC: PT 13:00
PROVIDERS: Family Provider Family Medicine; PCP Family Medicine; Referring Provider Family Medicine; Visit Provider Family Medicine
DX: M94.0 Chondrocostal junction syndrome [Tietze] (principal); M19.90 Unspecified osteoarthritis, unspecified site
CPT/HCPCS: 97113; 97162; 97530

== ENCOUNTER → 2020-03-29 | Outpatient (CLI) | payer MEDICARE, OTHER, SELFPAY ==
[2020-03-29 18:01] LABS: Absolute Lymphocyte Count 1.98 X10^3/uL (0.83-4.51); Absolute Neutrophil Count 3.7 X10^3/uL (2.0-7.7); Basophil# 0.04 X10^3/uL; Basophil% 0.6 % (0-1); Eosinophils% 4.5 % (0-5); Hematocrit 40.7 % (37-47); Hemoglobin 12.8 g/dL (12.0-15.0); Lymphocyte # 1.98 X10^3/ul (4.0); Lymphocyte % 29.9 % (19-41); Mean Corp Hgb Conc 31.4 g/dL (32-36); Mean Corpuscular Hgb 27.9 pg (27.0-32.0); Mean Corpuscular Volume 88.7 fL (81-99); Monocyte# 0.57 X10^3/uL; Monocyte% 8.6 % (0-10); NRBC Flagged by Analyzer 0 % (0-5); Neutrophil # 3.72 X10^3/uL (2.7-7.7); Neutrophil % 56.2 % (47-70); Platelet Count 244 K/mm3 (150-450); RBC Distribution Width CV 13.8 % (11.6-14.6); RBC Distribution Width SD 44.2 fl (35.1-43.9); Red Blood Count 4.59 M/mm3 (4.2-5.4); White Blood Count 6.6 K/mm3 (4.4-11.0)
[2020-03-29 18:19] LABS: Erythrocyte Sedimentation Rate 21 mm/hr (0-30)
[2020-03-29 18:39] LABS: ALB/GLOB Ratio 0.9 RATIO (0.9-2.4); AST(SGOT) 13 U/L (15-37); Alanine Aminotransfer ALT/SGPT 16 U/L (13-56); Albumin, Serum 3.7 g/dL (3.2-5.0); Alkaline Phosphatase 91 U/L (45-117); Anion Gap 6 (5-15); BUN 10 mg/dL (7-18); Calcium,Total 9.1 mg/dL (8.5-10.1); Chloride 103 mmol/L (98-107); Creatinine, Serum 0.91 mg/dL (0.55-1.02); EST Glomerular Filtration Rate 63 mL/min (>60); Est Glom Filt Rate - Afr Amer 76 mL/min (>60); Globulin 4.2 g/dL (2.2-4.2); Glucose 89 mg/dL (74-106); Lipase 779 U/L (73-393); Potassium 3.6 mmol/L (3.5-5.1); Protein, Total 7.9 g/dL (6.4-8.2); Sodium Level 140 mmol/L (136-145)
== END | disposition home or self-care (01) ==
LOC: MFPLAB 16:55
PROVIDERS: PCP Family Medicine; Visit Provider Family Medicine
DX: R10.9 Unspecified abdominal pain (principal)
CPT/HCPCS: 36415; 80053; 83690; 85025; 85652; 86140

== ENCOUNTER → 2020-04-14 | Outpatient (CLI) | payer MEDICARE, OTHER, SELFPAY ==
--- NOTE | 2020-04-14 09:44 | US_ITS ---
STUDY: ABDOMINAL ULTRASOUND REASON FOR EXAM: Female, 79 years old. BURPING -- ABD PAIN TECHNIQUE: Transabdominal ultrasound was performed with real-time and static alvarez scale imaging. TECHNICAL QUALITY: Adequate. COMPARISON: None. FINDINGS: Liver: The liver measures 14.3 cm. There is increased echogenicity consistent with fatty infiltration. The bile ducts are within normal limits. There is hepatic color flow. The direction of portal flow is hepatopetal. There is no demonstrated mass lesion. Portal vein measurement: Gallbladder: Normal distended gallbladder. The gallbladder wall measures 2.8 mm. There is a negative sonographic Rivas''s sign. There is no pericholecystic fluid. There are no gallstones. 2 gallbladder polyps are seen adherent to the gallbladder wall. They measure 4 mm and 3 mm respectively. Common Bile Duct (C.B.D.): The common bile duct measures 3.7 mm. Pancreas: Normal size of the head, body and tail of the pancreas. There is normal echogenicity of the pancreas. There is no demonstrated pancreatic mass or cyst. Spleen: Normal size of the spleen. The spleen measures 11.1 cm x 4.6 cm x 3.7 cm. There is evidence of scattered splenic granulomas. Right Kidney: Normal size of the right kidney. The right kidney measures 10.9 cm x 4.3 cm x 4.5 cm. Normal renal cortex. The right cortex measures 1.4 cm. 2 renal cysts are seen. The larger measures 2.5 cm x 2 cm x 2.4 cm. There is no right hydronephrosis. Left Kidney: Normal size of the left kidney. The left kidney measures 10.9 cm x 4.4 cm x 4.4 cm. Normal renal cortex. The left cortex measures 1.4 cm. 2 cysts are seen. The larger measures 1.1 cm x 1.2 cm x 0.8 cm. There is no left hydronephrosis. Aorta: Unremarkable. I.V.C.: The IVC is patent. There is no ascites. US/Abdomen Complete IMPRESSION: Fatty infiltration of the liver. 2. Small gallbladder polyps. Right renal cysts. Electronically Signed: Graham Henry, at 13:33 EDT , Service support ,
--- NOTE | 2020-04-14 11:38 | CT_ITS ---
STUDY: CT ABDOMEN WITH CONTRAST REASON FOR EXAM: Female, 79 years old. NO COMPLAINTS, NO N/V/D/C. DX PANCREATITIS RADIATION DOSAGE (If Supplied By Facility): CTDIvol = ( 13.66 ) mGy, DLP = ( 339.06 ) mGycm TECHNIQUE: Transaxial images were obtained post I.V. administration of Oral and amp; IV Gastrografin and amp; 100mL Isovue-300, and with oral contrast. Sagittal and coronal images were reconstructed. Individualized dose optimization techniques were used for this CT. COMPARISON: None. FINDINGS: There is a 7 mm calcified granuloma in the peripheral aspect of the left lower lobe. The visualized portions of the heart are within normal limits. There is decreased attenuation of the liver consistent with steatosis. Normal gallbladder and extrahepatic biliary system. There are multiple benign calcified granulomata of the spleen. Normal pancreas. Normal bilateral adrenal glands. There is a 2.2 cm x 2.1 cm cyst in the upper pole of the right kidney. Normal left kidney. Normal visualized stomach. Normal small intestine. Normal colon. The appendix is visualized and appears normal. Small calcified mesenteric lymph nodes are seen in the right lower quadrant. There is diffuse atherosclerotic calcification of the abdominal aorta, without a demonstrated aneurysm. Normal inferior vena cava. Normal retroperitoneum. There is a small umbilical hernia containing fat. There are degenerative changes of the visualized lumbar spine. CT/Abdomen WITH IV Contrast IMPRESSION: Fatty infiltration of the liver. Electronically Signed: Graham Henry, at 13:22 EDT , Service support ,
== END | disposition home or self-care (01) ==
LOC: US 09:43
PROVIDERS: PCP Family Medicine; Referring Provider Family Medicine; Visit Provider Family Medicine
DX: K85.90 Acute pancreatitis without necrosis or infection, unspecified (principal); R10.9 Unspecified abdominal pain
CPT/HCPCS: 74160; 76700; Q9967

== ENCOUNTER 2020-06-07 08:35 | Day surgery (SDC) | payer MEDICARE, OTHER, SELFPAY ==
[2020-05-24 13:57] VITALS: BMI 28.5
--- NOTE | 2020-05-25 02:11 | HP_ITS ---
Intake Vital Signs 05/24/20 Height 5 ft 05/24/20 Weight: 147 lb 6 oz 05/24/20 BMI 28.8 05/24/20 BP 134/81 H 05/24/20 Blood Pressure Location Rt brachial 05/24/20 Position Sitting 05/24/20 Respiration 18 05/24/20 Pulse 82 05/24/20 Pulse Source Monitor 05/24/20 Temp 97.3 F L 05/24/20 Temp Source Temporal 05/24/20 Pulse Oximetry (%) 96 05/24/20 Oxygen Delivery Method room air Intake Visit Reasons: C-Scope & EGD Chief Complaint: c-scope and EGD consult [employer] Inspector Required: No Accompanied by: Daughter In Law Is patient in pain?: No Allergies Penicillins [PCN] Allergy (Verified 05/24/20 13:54) Swelling Medications Aspirin [Aspirin EC] 81 mg PO DAILY 07/18/17 [History Confirmed 05/24/20] Ascorbic Acid [Vitamin C] 500 mg PO DAILY 10/29/17 [History Confirmed 05/24/20] Cholecalciferol (Vitamin D3) [Vitamin D3] 1,000 unit PO DAILY 10/29/17 [History Confirmed 05/24/20] Acetaminophen [Tylenol] 1,000 mg PO Q8 #90 tab 11/07/17 [Rx Confirmed 05/24/20] aluminum hydrox-magnesium carb 95 mg-358 mg/15 mL oral suspension 15 ml PO QHS ml 05/24/20 [History Confirmed 05/24/20] calcium carbonate 200 mg calcium (500 mg) chewable tablet 200 mg PO QPC PRN tab 05/24/20 [History Confirmed 05/24/20] esomeprazole magnesium 20 mg capsule,delayed release 20 mg PO DAILY 05/24/20 [History Confirmed 05/24/20] vitamin B complex 1 tab PO DAILY 05/24/20 [History Confirmed 05/24/20] [facility] Medical History Hyperlipidemia (Chronic) Biliary colic (Acute) Colitis (Acute) GERD (gastroesophageal reflux disease) (Acute) Osteoarthritis (Acute) Pancreatitis (Acute) Vitamin D deficiency (Acute) colonoscopy (Acute ~2012) History of pulmonary edema (Chronic) History of deep vein thrombosis (Resolved) Surgical History History of left hip replacement (Acute) Family History Mother CAD (coronary artery disease) Father CAD (coronary artery disease) Grandmother Breast cancer Arthritis Social History (Updated 05/25/20 @ 14:[address] Adrian Aguayo MD) Smoking Status: Former smoker how long ago did patient quit smokin alcohol intake: current HPI HPI Surgical H&P: Yes HPI: ROBERT READ, is a 79 F who presents to the office today for For evaluation for endoscopy. Patient has been complaining of gastroesophageal reflux disease for about the last 3 years she has been having some epigastric and some chest discomfort as well as increased belching. She has a history of peptic ulcer disease. Some recent labs showed an elevated lipase. She had a CT and an ultrasound which were within normal limits. But did raise a concern for possibly a duodenal ulcer. She has been recently started on a proton pump inhibitor and occasionally needs to use Tums at night in addition to the proton pump inhibitor. She has never had an upper endoscopy. She has not been throwing up or having any coffee-ground emesis. ROS General General: No weight change, appetite, fatigue, colon cancer, breast cancer or weakness HEENT HEENT: No difficulty swallowing, eye injury, eye surgery, swollen glands or hoarseness Endo Endocrine: No thyroid disease, diabetes mellitus, thyroid cancer, Hair loss, heat intolerance or cold intolerance Skin Skin: No rash or changing moles Breast Breast: No left breast lump, right breast lump, nipple discharge, breast pain, abnormal mammogram, abnormal US or breast enlargement Musc Musculoskeletal: Yes arthritis; no back problems, rheumatoid arthritis, gout or joint pain Cardio Cardiovascular: No murmur, pacemaker, heart disease, atrial fibrillation, high blood pressure, heart attack, heart stent, palpitations, shortness of breat with exertion or chest pain Psych Psychiatric: No depression, anxiety or hearing voices Resp Respiratory: No shortness of breath, No sleep apnea, No cough, No COPD, No asthma, No emphysema, No wheezing Gastro Gastrointestinal: Yes abdominal pain, No nausea or vomiting, No diarrhea, No constipation, No blood in stool, Yes acid reflux, No hemorrhoids, No ulcers, No gallbladder problem, No black,tarry stools [place] Hematologic: No blood thinners, No blood disorders, No bleeding, No anemia, No blood clots Neuro Neurologic: No system reviewed and no additional complaints, except as docu, No as per HPI, No abnormal walking, No abnormal hearing, No abnormal movements, No abnormal speech, No behavioral changes, No burning sensations, No confusion, No seizure-like activity, No unsteadiness, No dizziness, No localized weakness, No frequent falls, No headache(s), No lack of coordination, No loss of vision, No memory loss, No numbness, No other visual disturbances, No radiating pain, No restless legs, No sensory deficit, No fainting, No tingling, No tremor(s), No weakness, No other Exam Const General: no acute distress, well developed, well hydrated Orientation: oriented to person, oriented to place, oriented to time [facility] Head: normocephalic, atraumatic Ears: external ears normal Mouth: moist mucous membranes Eyes Sclera: sclerae normal Pupils: normal by confrontation Neck Neck: no lymphadenopathy noted Neck mass: No Thyroid: thyroid normal, symmetrical Chest Chest palpation & inspection: normal inspection of the chest Breast Palpation: No nipple discharge Resp Effort & Inspection: normal respiratory effort Auscultation: clear to auscultation bilaterally Percussion: percussion normal Cardio Rate: regular rate Rhythm: regular rhythm Heart Sounds: no murmurs GI Palpation: soft, no hepatosplenomegaly, no masses, nontender Rectal Exam: other Other: Rectal exam deferred. Extrem General: normal to inspection, no clubbing, cyanosis or edema Assessment & Plan Problems 1. Gastroesophageal reflux disease, esophagitis presence not specified K21.9 2. Epigastric pain R10.13 Plan I have discussed the above with the patient. I have offered the patient esophagogastroduodenoscopy for evaluation. I have explained the risks/benefits of the procedure and described the procedure. I have discussed the risks with the patient, including but not limited to: infection, bleeding, perforation of the GI tract requiring emergency surgery, inability to complete the procedure, injury to any internal organs, complications of anesthesia, etc. - the patient understands and agrees to proceed. I have answered all the patient's questions to the patient's satisfaction and the patient has no further questions. The patient has been given instructions for the colon cleansing preparation. Coding Level of Care Code Off vis,new,level 3 Diagnoses Gastroesophageal reflux disease, esophagitis presence not specified K21.9 ??Esophagitis presence: esophagitis presence not specified Epigastric pain R10.13 COVID (Procedure Consent) Procedure Criteria Procedure Criteria: Yes Elective The surgeon/proceduralist and patient have discussed in detail the risk of exposure to and/or potential harm posed by the COVID-19 virus with having a surgery/procedure at this time versus the risk of? delaying the surgery/procedure. It is not possible to know either the risk of delaying the surgery or procedure or chance of getting an infection with perfect accuracy, but a joint decision was made between the patient and the surgeon/proceduralist ?to proceed at this time with the scheduled surgery/procedure as indicated on the consent form. 05/25/20 1413 <Electronically signed by Adrian farfan MD> Date _ Adrian Aguayo MD I have re-examined the patient. There are no clinical changes since date of exam.
[2020-06-07] VITALS (7 sets, daily range): BP systolic 112–142; BP diastolic 60–98; PULSE 59–74; RESP 16–18; TEMP 36.4–37.2; O2SAT 93–95; BMI 29.3
[2020-06-07] MEDS: Lactated Ringers 1,000 ML 100 ML IV (09:11)
--- NOTE | 2020-06-07 09:45 | EGD_PTH ---
PATIENT: ROBERT READ LOC: EN U#:[id number] AGE/SX: 79/F ROOM: RE06/07/[address]: Dr. Adrian Aguayo MD : 1940 BED: DIS: 06/07/2020 SPEC #: [id number] RECD: 06/07/20 15:07 STATUS: PATTY REILLY #: [id number] YAEL: 06/07/20 09:[address]: Adrian Aguayo DEPT: SURGICAL PATHOLOGY RECD BY: Brooke Santana ENTERED: 06/08/20 09:11 SP TYPE: EGD BIOPSY OT DR: Dr. Joel Kumar MD Tissues: Esophagus, NOS Procedures: Special Stain Group II Special Stain Group I Surgery Specimen Level IV GMS Stain (control) Alcian Blue/PAS (control) HEADER OPERATION: EGD ([facility] [place] PRE-OP DIAGNOSIS: GERD, epigastric pain TISSUE SUBMITTED: Distal esophagus biopsy MICROSCOPIC DIAGNOSIS Distal esophagus, biopsy: Fragments of gastroesophageal mucosa with focal ulceration and acute and chronic inflammation. Intestinal metaplasia (goblet cell metaplasia) is not identified. Special stain for fungi is negative for organisms; matched control is appropriate. See comment. FE:florentin 06/09/20 COMMENT Alcian blue/PAS stain with matched control is used in the evaluation of the specimen. MICROSCOPIC DESCRIPTION Slides are reviewed. GROSS DESCRIPTION Received in fixative is one container labeled with the patient's name and designated distal esophagus biopsy. The specimen consists of multiple irregular fragments of light liz soft tissue that in aggregate measure 0.6 x 0.3 x 0.1 cm. The specimen is totally submitted in one cassette. / FE:florentin 06/08/20 TC:2 CPT: 11756, 03049, 42581
--- NOTE | 2020-06-07 09:58 | OP.EGD_ITS ---
Patient Name: Carolee Reyes Procedure Date: 06/07/2020 9:28 AM Date of : 1940 Age: 79 Procedure: Upper GI endoscopy Indications: Epigastric abdominal pain, Suspected gastro-esophageal reflux disease Providers: Adrian Aguayo MD Referring MD: Joel Kumar Medicines: See the Anesthesia note for documentation of the administered medications Patient Profile: This is an 79 year old female. Refer to note in patient chart for documentation of history and physical. Complications: No immediate complications. Procedure: Pre-Anesthesia Assessment: - Prior to the procedure, a History and Physical was performed, and patient medications and allergies were reviewed. The patient's tolerance of previous anesthesia was also reviewed. The risks and benefits of the procedure and the sedation options and risks were discussed with the patient. All questions were answered, and informed consent was obtained. Prior Anticoagulants: The patient has taken aspirin, last dose was 7 days prior to procedure. ASA Grade Assessment: III - A patient with severe systemic disease. After reviewing the risks and benefits, the patient was deemed in satisfactory condition to undergo the procedure. After obtaining informed consent, the endoscope was passed under direct vision. Throughout the procedure, the patient's blood pressure, pulse, and oxygen saturations were monitored continuously. The Endoscope was introduced through the mouth, and advanced to the second part of duodenum. The upper GI endoscopy was accomplished without difficulty. The patient tolerated the procedure well. Scope In: 9:46:33 AM Scope Out: 9:50:15 AM Total Procedure Duration Time 0 hours 3 minutes 42 seconds Findings: A medium-sized hiatal hernia was present. Biopsies were taken with a cold forceps for histology. The Z-line was regular and was found 36 cm from the incisors. Biopsies were taken with a cold forceps for histology. The entire examined stomach was normal. Biopsies were taken with a cold forceps for Helicobacter pylori testing. The examined duodenum was normal. No biopsies or other specimens were collected for this exam. Impression: - Medium-sized hiatal hernia. Biopsied. - Z-line regular, 36 cm from the incisors. Biopsied. - Normal stomach. Biopsied. - Normal examined duodenum. No specimens collected. Recommendation: - Discharge patient to home. - Resume previous diet. - Continue present medications. - Await pathology results. - Repeat upper endoscopy (date not yet determined) for surveillance based on pathology results. - Return to office in 1 week. Procedure Code(s): --- Professional --- 64639, Esophagogastroduodenoscopy, flexible, transoral; with biopsy, single or multiple Diagnosis Code(s): --- Professional --- K44.9, Diaphragmatic hernia without obstruction or gangrene R10.13, Epigastric pain CPT copyright 2017 [employer]. All rights reserved. The codes documented in this report are preliminary and upon professor/nurse anesthetist review may be revised to meet current compliance requirements. MD Adrian Rosario MD 06/07/2020 9:58:30 AM This report has been signed electronically. Number of Addenda: 0 Note Initiated On: 06/07/2020 9:28 AM
--- NOTE | 2020-06-07 09:58 | OP.CCLET_ITS ---
06/07/2020 Joel Kumar [address] [place] [address] Re : Upper GI endoscopy procedure for Carolee Reyes Dear Dr. Kumar This procedure was performed on Sunday, June 07, 2020. My impressions and recommendations are as follows: Impressions : - Medium-sized hiatal hernia. Biopsied. - Z-line regular, 36 cm from the incisors. Biopsied. - Normal stomach. Biopsied. - Normal examined duodenum. No specimens collected. Recommendations : - Discharge patient to home. - Resume previous diet. - Continue present medications. - Await pathology results. - Repeat upper endoscopy (date not yet determined) for surveillance based on pathology results. - Return to my office in 1 week. My findings are described in the full procedure note, which is enclosed. If I can be of further assistance, please feel free to contact me at Doctor phone number(s): , Fax: [phone], Work: . Sincerely, MD Adrian Rosario MD 06/07/2020 9:58:30 AM This report has been signed electronically.
== END 2020-06-07 10:40 | disposition home or self-care (01) ==
LOC: EN 08:36 → AC 08:37
PROVIDERS: Anesthesiology; PCP Family Medicine; Referring Provider Family Medicine; Visit Provider Surgery
PROC: 0DJ08ZZ Inspection of Upper Intestinal Tract, Via Natural or Artificial Opening Endoscopic (ICD-10-PCS; CPT 43235; principal; 2020-06-07 09:40)
DX: K22.10 Ulcer of esophagus without bleeding (principal); K21.0 Gastro-esophageal reflux disease with esophagitis; K44.9 Diaphragmatic hernia without obstruction or gangrene; E78.5 Hyperlipidemia, unspecified; M19.90 Unspecified osteoarthritis, unspecified site; E55.9 Vitamin D deficiency, unspecified; Z86.718 Personal history of other venous thrombosis and embolism; Z87.891 Personal history of nicotine dependence; Z79.82 Long term (current) use of aspirin; Z11.59 Encounter for screening for other viral diseases
CPT/HCPCS: 43239; 87635; 88305; 88312; 88313; C9803; J7120; J2405; U0003

== ENCOUNTER → 2020-07-14 07:36 | Outpatient (CLI) | payer MEDICARE, OTHER, SELFPAY ==
[2020-06-07 08:56] VITALS: BMI 29.3
--- NOTE | 2020-07-14 07:38 | CT_ITS ---
STUDY: CT SCAN RIGHT REASON FOR EXAM: Female, 79 years old. Right total hip replacement 1.5 years ago, abnormal x-ray per ortho. RADIATION DOSAGE (If Supplied By Facility): CTDIvol = ( 16.34 ) mGy, DLP = ( 612.07 ) mGycm. Individualized dose optimization techniques were used for this CT.? TECHNIQUE: Multiple axial tomographic images of the right hip joint were obtained. Coronal and sagittal reconstruction was obtained as well. COMPARISON: None. FINDINGS: The patient is status post right total hip replacement. There is good alignment. There is no evidence of fracture or dislocation. CT/Extremity Lower without Contra IMPRESSION: Status post right total hip replacement. There is good alignment. No acute abnormality is seen. Electronically Signed: Graham Henry, at 11:16 EDT , Service support ,
[2020-07-14 08:26] LABS: Absolute Lymphocyte Count 1.28 X10^3/uL (0.83-4.51); Absolute Neutrophil Count 4.4 X10^3/uL (2.0-7.7); Basophil# 0.04 X10^3/uL; Basophil% 0.6 % (0-1); Eosinophil# 0.25 X10^3/uL; Hematocrit 40.1 % (37-47); Hemoglobin 12.7 g/dL (12.0-15.0); Lymphocyte # 1.28 X10^3/ul (4.0); Lymphocyte % 20.4 % (19-41); Mean Corp Hgb Conc 31.7 g/dL (32-36); Mean Corpuscular Hgb 27.9 pg (27.0-32.0); Mean Corpuscular Volume 87.9 fL (81-99); Mean Platelet Vol. 9.4 fl (6.2-12.0); Monocyte# 0.33 X10^3/uL; Monocyte% 5.3 % (0-10); NRBC Flagged by Analyzer 0 % (0-5); Neutrophil # 4.35 X10^3/uL (2.7-7.7); Neutrophil % 69.5 % (47-70); Platelet Count 250 K/mm3 (150-450); RBC Distribution Width CV 13.6 % (11.6-14.6); RBC Distribution Width SD 43.7 fl (35.1-43.9); Red Blood Count 4.56 M/mm3 (4.2-5.4); White Blood Count 6.3 K/mm3 (4.4-11.0)
[2020-07-14 08:44] LABS: Erythrocyte Sedimentation Rate 21 mm/hr (0-30)
== END ==
PROVIDERS: PCP Family Medicine; Referring Provider Specialist; Visit Provider Specialist
DX: Z96.641 Presence of right artificial hip joint (principal)
CPT/HCPCS: 36415; 73700; 85025; 85652; 86140

== ENCOUNTER → 2020-07-25 07:55 | Outpatient (CLI) | payer MEDICARE, OTHER, SELFPAY ==
[2020-06-07 08:56] VITALS: BMI 29.3
--- NOTE | 2020-07-25 08:20 | RAD_ITS ---
PROCEDURE: Fluoroscopic guided Hip aspiration. DATE: 07/25/2020. INDICATION: Female, 79 years old. Right hip pain. Right hip prosthesis. PHYSICIAN: Graham Henry M.D. ACCESS SITE: Right hip. NEEDLE: 22-gauge spinal needle. FLUOROSCOPY TIME (if supplied): (0:33) minutes/seconds FINDINGS: The risks, benefits, and alternatives to the procedure were explained to the patient. The specific risks of bleeding, infection, and neurovascular injury were detailed and accepted. Witnessed informed consent was obtained. A 22-gauge spinal needle was positioned under radiographic fluoroscopic localization. Approximately 2 cc of ISOVUE-200 instilled for localization purposes. No aspirate was obtained. The patient tolerated the procedure well without any immediate complications. . RAD/Inj/Asp Ham Jt Should/Hip/Knee IMPRESSION: 1. No aspiration was obtained. Electronically Signed: Graham Henry, at 10:10 EST , Service support ,
== END ==
PROVIDERS: PCP Family Medicine; Referring Provider Specialist; Visit Provider Specialist
DX: Z96.641 Presence of right artificial hip joint (principal)
CPT/HCPCS: 20610; 77002; Q9967

== ENCOUNTER 2020-08-15 15:05 | Emergency (ER) | payer MEDICARE, OTHER, SELFPAY ==
[2020-06-07 08:56] VITALS: BMI 29.3
[2020-08-15 15:07] VITALS: TEMP 36.7
[2020-08-15 15:14] VITALS: BP 160/82; PULSE 75; RESP 19; TEMP 36.7; O2SAT 96; BMI 35.7
--- NOTE | 2020-08-15 15:26 | CT_ITS ---
STUDY: CT BRAIN WITHOUT CONTRAST REASON FOR EXAM: Female, 79 years old. FELL AND HIT FACE. HEMATOMA LT EYE, ABRASION ON NOSE, NO LOC. RADIATION DOSAGE (If Supplied By Facility): CTDIvol = ( 60.81 ) mGy, DLP = ( 998.67 ) mGycm TECHNIQUE: Transaxial CT imaging of the brain was performed without administration of intravenous contrast material. Individualized dose optimization techniques were used for this CT. COMPARISON: No relevant priors. FINDINGS: Mild left frontal soft tissue swelling. Normal calvarium. There is moderate cerebral atrophy with widening of the extra-axial spaces and ventricular dilatation. There are areas of decreased attenuation within the white matter tracts of the supratentorial brain, consistent with microvascular disease changes. Normal basal ganglia and thalami. Normal brainstem. Normal cerebellum. There is no intracranial hemorrhage. There are no findings of an acute ischemic infarction. Atherosclerotic calcification of the cavernous carotid arteries. Mild mucosal thickening in the left maxillary sinus. Acute, nondisplaced nasal bone fractures. CT/Brain/Head without Contrast IMPRESSION: 1. No acute intracranial findings. 2. Acute nasal bone fractures. 3. Mild left frontal soft tissue swelling. 4. Microvascular ischemia. Atrophy. Electronically Signed: Faby Zheng MD at 16:12 EST Tel , Service support ,
--- NOTE | 2020-08-15 15:27 | ED.DCSUM_ITS ---
- ER Visit Summary Date of Service: 08/15/20 Chief Complaint: Slipped and fell on the ice with head injury History of Present Illness: The patient is a 79 F no past medical history other than bilateral hip replacements. Patient is on no medications other than vitamins. Today she was walking outside in area [facility] and she slipped on the ice and snow fell hitting her left forehead and nose. She denies any LOC. She denies being on any blood thinners. She denies any headache or neck pain. She denies any numbness. States she has been well and has not been ill recently. Physical Examination: Older female no acute distress vital signs stable afebrile. Initial blood pressure 160/82. HEENT exam pupils are unreactive laser motions are intact. She is a moderate sized hematoma in her left forehead and an abrasion to the bridge of her nose with dried blood. I do not see any laceration needs to be repaired. There is no bleeding from the naris. And there is no bony deformity of the nose. There is mild tenderness. Dentition intact. Scalp nontender. No swelling. No lacerations. Neck nontender trachea midline. Normal range of motion to her neck. Lungs clear to auscultation bilaterally. Heart regular rhythm no murmur rate about 75. Chest wall nontender. Abdomen soft nontender normal bowel sounds no peritoneal signs. Pelvic girdle intact. No shortening or rotation of either lower extremity. She has normal assistant food service manager strength bilaterally. Superficial abrasion to dorsum of her left hand but no bony deformity. 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 She is able to open and close both hands. Has normal assistant food service manager strength. Wrists, elbows and shoulders are nontender. Hips knees ankles and feet are nontender with normal dorsi and plantar flexion. She can flex and extend both knees. Back spine nontender. Neurologically she is awake. She is alert. She is answering questions and following commands. 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 GCS is 15. She has no focal motor deficits. Test Results: CT brain w/o contrast read by the radiologist and reviewed by me. Shows no acute intracranial bleed. Some soft tissue swelling. And nondisplaced nasal fracture. Emergency Department Course and Treatment: Patient does not anything for pain. Clinically she may have a concussion but she is not acting concussed. She is awake and alert. Has a GCS of 15. Is following commands easily. And is acting appropriately. She does have a moderate hematoma to her left forehead I will obtain a CAT scan of her brain. Without contrast. Otherwise she has no other areas that are tender or deformed. She is not been clinically ill at all think she needs labs. Treatment Plan: Head injury instructions. Tylenol for pain. Ice her forehead. Return if vomiting, severe headache or not acting appropriately. Disposition: Discharge Impression: Fall on the ice with closed head injury Left forehead hematoma Nasal bridge abrasion and nondisplaced nasal fracture This note was generated with [employer] dictation software. It may contain incorrect words, spelling, and punctuation that were not noted in review of the chart prior to signing ED Disposition - Plan for ED Patient: Disposition: Home or Assisted Living Instructions: ED Head Injury (Adult) Referrals: Joel Kumar MD [Primary Care Provider] - 1 Week if not improving Additional Instructions: Ice to your forehead. Tylenol for any pain. Keep the abrasion on your nose clean and apply antibiotic ointment daily. Return if severe headache, vomiting or not acting herself.
--- NOTE | 2020-08-15 15:32 | ED.DEP ---
ED Disposition - Plan for ED Patient: Disposition: Home or Assisted Living Instructions: ED Head Injury (Adult) Referrals: Joel Kumar MD [Primary Care Provider] - 1 Week if not improving Additional Instructions: Ice to your forehead. Tylenol for any pain. Keep the abrasion on your nose clean and apply antibiotic ointment daily. Return if severe headache, vomiting or not acting herself.
== END 2020-08-15 16:43 | disposition home or self-care (01) ==
PROVIDERS: Emergency Provider Emergency Medicine; PCP Family Medicine
DX: S02.2XXA Fracture of nasal bones, initial encounter for closed fracture (principal); S00.83XA Contusion of other part of head, initial encounter; W00.0XXA Fall on same level due to ice and snow, initial encounter; Y93.01 Activity, walking, marching and hiking; Y92.481 Parking lot as the place of occurrence of the external cause; Y99.8 Other external cause status
CPT/HCPCS: 70450; 99284

== ENCOUNTER 2020-12-11 12:30 | Outpatient (RCR) | payer MEDICARE, OTHER, SELFPAY ==
--- NOTE | 2020-10-25 12:54 | HP.PTEVAL ---
Patient's Visit Information ROBERT READ is a 79 year old F referred to Physical Therapy by Dr. Joel Kumar MD with a diagnosis of falls, ataxic gait. Date of Evaluation: 10/25/20 Physical Therapist: IZZY Peacock - Visit Plan Frequency: 1x/Week Duration: 3 Months Plan: 1X/ week for up to 12 weeks for B hip strengthening, core stability, functional strengthening, testing on NeuroCom for baseline but probable Vestibuolar inputs, gait training to increase stride and increase knee flexion and heel to toe gait pattern with HEP. HEP: clam shells, bridges, standing heel and toe raises - Subjective Pt reports that she used to go swimming here and exercise and then she went to [place] and was doing fine and now she is out of practice. She reports that she did not fall. She reports that her body is not working like it should. SHe has had 2 hip operations (THR) and those were a couple years ago. She does not do much. SHe sits, reads a lot. She reports that she is lazy. She reports that she has pain in her hand from the arthrisits arabella in her L hand. She feels that her legs are weak. She has no trouble getting up from a chair. She can do stairs but she has to hold onto the railing. She feels that she could get up from the floor if she fell. She is on Medicare. She was using a cane for awhile and she started depending on it and so she hung up the cane and now everything is fine. She still drives. She reports that she has no dizziness. She reports that she has a little bit of hearing loss and hard to distingish sounds and trying to get something done about that. - Pain B hip pain Pain Intensity (Out of 10): 5 - Objective Gait: Short fast steps with no LOB or veering. Increase trunk rotation with gait and little knee flexion and decrease DF. Tight gastroc B. Pt has tight HS B but also has B THR. LE MMT: B hip flexion 4-/5, B hip abd 3-/5, B hip ext 3+/5, B knee flexion and extension 4/5. Pt is able to heel and toe raise (needs UE support for balance). FGA: 23. CATSIB: 110/120 - Balance Scores Functional Gait Assessment Score: 23 % Disability: 23.3400 CATSIB Score (Max score 120 seconds): 110 - Goals Goal 1:: I HEP Goal Time Frame: 8-12 Weeks Goal 2:: Increase LE strength by 1/2 muscle grade (at time of eval: LE MMT: B hip flexion 4-/5, B hip abd 3-/5, B hip ext 3+/5, B knee flexion and extension 4/5) Goal Time Frame: 8-12 Weeks Goal 3:: Test pt on the NeuroCom to get baseline for balance Goal Time Frame: 6-8 Weeks Goal 4:: Walk with increase step length with more heel to toe gait pattern Goal Time Frame: 8-12 Weeks - Rehabilitation Potential Rehabilitation Potential: Good - Anticipated Interventions Patient/Client Instruction: Educate patient on: Condition, Plan of Care For the Purpose of:: To decrease pain, To increase ROM, To increase oxygenation perfusion, To improve muscle performance and motor function, To improve ability to perform ADL's, To improve performance and independence with ADL's, To improve ability of physical actions for home/community/work/leisure, To improve gait and locomotor functions, To improve health of tissue, To increase flexibility/ROM, To improve endurance, To improve balance, To improve safety with gait Therapeutic Exercise to Include: Strength training, Balance training, Postural training, Flexibilty training, Gait and locomotor training, Neuromotor development, Active ROM, Dynamic Lumbar Stabilization For the Purpose of:: To decrease pain, To increase ROM, To improve nutrient delivery to tissue, To improve muscle performance and motor function, To improve ability to perform ADL's, To increase tolerance to activity/condition/position, To improve performance and independence with ADL's, To decrease level of supervision to perform tasks, To improve ability of physical actions for home/community/work/leisure, To improve gait and locomotor functions, To improve health of tissue, To increase flexibility/ROM, To improve endurance, To improve balance, To improve safety with gait Functional Training to Include: Gait training For the Purpose of:: To improve gait and locomotor functions, To improve safety with gait Manual Therapy Techniques to Include: Passive ROM, Soft tissue mobilization For the Purpose of:: To increase ROM, To decrease soft tissue restriction, To increase flexibility/ROM Thank you for the opportunity to evaluate your patient. For Medicare and Medicare HMO plans, please review the plan of care and approve it. It will need to be FAXED BACK to us at [phone] for Medicare purposes. For Medicare only, by signing this I certify the plan of care. Please let me know if there are questions or concerns regarding this plan of care. Physician Signature: Date:
--- NOTE | 2020-11-20 14:24 | HP.PTCOM ---
PT Communication Note 11/20/[address] Joel Kumar MD , Thank you for the referral of Carolee Reyes to our clinic. She was tested on our [employer] Balance Machine today and enclosed are the patients test results. On the Sensory Organization Test (SOT), the pt had slight issue with the use of her visual and vestibular systems to help her maintain her balance. She uses her ankle as her balance strategy which is higher level. On the Motor Control Test (MCT), the pt had normal age related overall reaction time. On the Limits of Stability Test (LOS), pt had with in age related normal weight shifting ability. At this point in time we will continue with our strengthening and add in balance activities with vestibular and visual inputs. Thank you. Sincerely, IZZY Peacock Contact Information
--- NOTE | 2020-12-11 12:50 | HP.PTREVAL ---
Dr. Joel Kumar MD, It has been my pleasure to treat ROBERT READ over the last 8 visits for falls, ataxic gait. Please see the progress note below for an update on the physical therapy plan of care! Subjective: R hip hurting today and has a bulge 03/24. Doing HEP ithout pain increase. No fall slately but very careful adn has not been as active Objective/Function: Walking I with obvoous r antalgia. C/O increasing R hip pain laterally. LB AROM ext adn flexion slow but able without pain until end range ext slightly painful hip. Strength ankles and knees is OK without pain. Bulge present to palpation lateal proximal quad nto present on L. Unable to SLR R LE due to pain and weakness. Overall pain in hip is worsening without improvement. Plan Plan: Recommend return to doctor for further eval of R hip and or LB as pain in hip is worsening(may need to see Laura?) Pt to schedule with dr. Kumar for evaluation and then contact us if needs rreturn for possible pool therapy if no other options Goals Goal 1:: I HEP Goal Time Frame: 8-12 Weeks Goal 2:: Increase LE strength by 1/2 muscle grade (at time of eval: LE MMT: B hip flexion 4-/5, B hip abd 3-/5, B hip ext 3+/5, B knee flexion and extension 4/5) Goal Time Frame: 8-12 Weeks Goal Progress: Not Progressing Goal 3:: Test pt on the NeuroCom to get baseline for balance Goal Time Frame: 6-8 Weeks Goal 4:: Walk with increase step length with more heel to toe gait pattern Goal Time Frame: 8-12 Weeks Goal Progress: Not Progressing Anticipated Interventions Patient/Client Instruction: Educate patient on: Condition, Plan of Care For the Purpose of:: To decrease pain, To increase ROM, To increase oxygenation perfusion, To improve muscle performance and motor function, To improve ability to perform ADL's, To improve performance and independence with ADL's, To improve ability of physical actions for home/community/work/leisure, To improve gait and locomotor functions, To improve health of tissue, To increase flexibility/ROM, To improve endurance, To improve balance, To improve safety with gait Therapeutic Exercise to Include: Strength training, Balance training, Postural training, Flexibilty training, Gait and locomotor training, Neuromotor development, Active ROM, Dynamic Lumbar Stabilization For the Purpose of:: To decrease pain, To increase ROM, To improve nutrient delivery to tissue, To improve muscle performance and motor function, To improve ability to perform ADL's, To increase tolerance to activity/condition/position, To improve performance and independence with ADL's, To decrease level of supervision to perform tasks, To improve ability of physical actions for home/community/work/leisure, To improve gait and locomotor functions, To improve health of tissue, To increase flexibility/ROM, To improve endurance, To improve balance, To improve safety with gait Functional Training to Include: Gait training For the Purpose of:: To improve gait and locomotor functions, To improve safety with gait Manual Therapy Techniques to Include: Passive ROM, Soft tissue mobilization For the Purpose of:: To increase ROM, To decrease soft tissue restriction, To increase flexibility/ROM Please do not hesitate to contact me at [phone] by phone or if you have questions or concerns regarding this new plan of care! Sincerely, Joel Baird, DPT, OCS, CSCS
--- NOTE | 2021-06-01 10:00 | HP.PT.NRP ---
ROBERT READ was seen in my office for initial evaluation on 10/25/20. The following Plan of Care was established for this patient: Initial Frequency: 1x/Week Initial Duration: 3 Months Patient/Client Instruction: Educate patient on: Condition, Plan of Care For the Purpose of:: To decrease pain, To increase ROM, To increase oxygenation perfusion, To improve muscle performance and motor function, To improve ability to perform ADL's, To improve performance and independence with ADL's, To improve ability of physical actions for home/community/work/leisure, To improve gait and locomotor functions, To improve health of tissue, To increase flexibility/ROM, To improve endurance, To improve balance, To improve safety with gait Therapeutic Exercise to Include: Strength training, Balance training, Postural training, Flexibilty training, Gait and locomotor training, Neuromotor development, Active ROM, Dynamic Lumbar Stabilization For the Purpose of:: To decrease pain, To increase ROM, To improve nutrient delivery to tissue, To improve muscle performance and motor function, To improve ability to perform ADL's, To increase tolerance to activity/condition/position, To improve performance and independence with ADL's, To decrease level of supervision to perform tasks, To improve ability of physical actions for home/community/work/leisure, To improve gait and locomotor functions, To improve health of tissue, To increase flexibility/ROM, To improve endurance, To improve balance, To improve safety with gait Functional Training to Include: Gait training For the Purpose of:: To improve gait and locomotor functions, To improve safety with gait Manual Therapy Techniques to Include: Passive ROM, Soft tissue mobilization For the Purpose of:: To increase ROM, To decrease soft tissue restriction, To increase flexibility/ROM This patient was last seen in our office 12/11/20. Pertinent comments regarding their Physical therapy will appear below: AJ PT pt to go back to At this point I will be discontinuing this patient from physical therapy. I would be happy to see this patient again in the future if found appropriate by the physician. Thank you! Mary Valenzuela, IZZY Balance/Gait/Functional tests - Balance/Special Test Scores Functional Gait Assessment Score: 23 % Disability: 23.3400 CATSIB Score (Max score 120 seconds): 110 Lower Extremity Functional Score: 48
== END 2020-12-11 19:00 | disposition home or self-care (01) ==
LOC: PT 12:30
PROVIDERS: PCP Family Medicine; Referring Provider Family Medicine; Visit Provider Family Medicine
DX: R29.6 Repeated falls (principal); R26.0 Ataxic gait
CPT/HCPCS: 97110; 97161; 97164; 97750

== ENCOUNTER → 2020-12-22 14:05 | Outpatient (CLI) | payer MEDICARE, OTHER, SELFPAY ==
[2020-12-22 14:27] LABS: Lyme Ab Screen Interpretation REF LAB
[2020-12-22 18:07] LABS: Erythrocyte Sedimentation Rate 17 mm/hr (0-30)
[2020-12-22 18:34] LABS: Thyroid Stim Hormone (TSH) 3.28 uIU/mL (0.358-3.74)
[2020-12-22 19:52] LABS: Hemoglobin A1c 5.3 % (3.8-5.6)
[2020-12-25 14:01] LABS: HIV - WCH Non-Reactive (Nonreactive); Syphilis Antibodies Non-reactive
[2020-12-25 16:15] LABS: Lyme Scn Total Ab w/Rflx <0.91 ISR (0.00-0.90)
[2020-12-25 21:08] LABS: ANTINUCLEAR ANTIBODIES DIRECT Positive (Negative)
== END ==
PROVIDERS: PCP Family Medicine; Referring Provider Family Medicine; Visit Provider Family Medicine
DX: K21.9 Gastro-esophageal reflux disease without esophagitis (principal); R41.89 Other symptoms and signs involving cognitive functions and awareness
CPT/HCPCS: 83036; 84443; 85652; 86038; 86140; 86340; 86618; 86703; 86780

== ENCOUNTER → 2021-01-15 15:00 | Outpatient (CLI) | payer MEDICARE, OTHER, SELFPAY ==
[2021-01-15 16:28] LABS: Absolute Lymphocyte Count 1.39 X10^3/uL (0.83-4.51); Absolute Neutrophil Count 4.2 X10^3/uL (2.0-7.7); Basophil# 0.04 X10^3/uL; Basophil% 0.7 % (0-1); Eosinophil# 0.15 X10^3/uL; Eosinophils% 2.4 % (0-5); Hematocrit 38.7 % (37-47); Hemoglobin 12.3 g/dL (12.0-15.0); Lymphocyte # 1.39 X10^3/ul (0.83-4.51); Lymphocyte % 22.6 % (19-41); Mean Corp Hgb Conc 31.8 g/dL (32-36); Mean Corpuscular Hgb 27.2 pg (27.0-32.0); Mean Corpuscular Volume 85.6 fL (81-99); Monocyte# 0.38 X10^3/uL; Monocyte% 6.2 % (0-10); NRBC Flagged by Analyzer 0 % (0-5); Neutrophil # 4.17 X10^3/uL (2.7-7.7); Neutrophil % 67.8 % (47-70); Platelet Count 264 K/mm3 (150-450); RBC Distribution Width SD 43.4 fl (35.1-43.9); Red Blood Count 4.52 M/mm3 (4.2-5.4); White Blood Count 6.2 K/mm3 (4.4-11.0)
[2021-01-15 16:32] LABS: ALB/GLOB Ratio 0.8 RATIO (0.9-2.4); AST(SGOT) 10 U/L (15-37); Alanine Aminotransfer ALT/SGPT 11 U/L (13-56); Albumin, Serum 3.3 g/dL (3.2-5.0); Alkaline Phosphatase 84 U/L (45-117); Anion Gap 5 (5-15); BUN 11 mg/dL (7-18); BUN/Creat Ratio 11.6 RATIO (10-20); Calcium,Total 9.3 mg/dL (8.5-10.1); Chloride 104 mmol/L (98-107); Creatinine, Serum 0.95 mg/dL (0.55-1.02); EST Glomerular Filtration Rate 60 mL/min (>60); Est Glom Filt Rate - Afr Amer 73 mL/min (>60); Globulin 4.3 g/dL (2.2-4.2); Glucose 109 mg/dL (74-106); Potassium 3.8 mmol/L (3.5-5.1); Protein, Total 7.6 g/dL (6.4-8.2); Sodium Level 140 mmol/L (136-145)
[2021-01-19 08:36] LABS: Intrinsic Factor Ab 0.9 AU/mL (0.0-1.1)
== END ==
PROVIDERS: PCP Family Medicine; Referring Provider Specialist; Visit Provider Specialist
DX: Z01.818 Encounter for other preprocedural examination (principal); M16.9 Osteoarthritis of hip, unspecified
CPT/HCPCS: 36415; 80053; 85025; 86038; 86225; 86235; 86340

== ENCOUNTER → 2021-01-18 | Outpatient (CLI) | payer MEDICARE, OTHER, SELFPAY ==
--- NOTE | 2021-01-18 09:45 | FLU_PTH ---
PATIENT: ROBERT READ LOC: [facility] U#:[id number] AGE/SX: 80/F ROOM: RE01/18/[address]: Dr. Robbie Sanchez MD : 1940 BED: DIS: 01/18/2021 SPEC #: [id number] RECD: 01/18/21 15:22 STATUS: PATTY REAide #: [id number] YAEL: 01/18/21 09:[address]: Robbie Sanchez DEPT: CYTOLOGY RECD BY: Elisabet Brandt ENTERED: 01/19/21 09:48 SP TYPE: Fluid OTHR DR: Dr. Joel Kumar MD [facility] Tissues: Synovial fluid Procedures: Special Stain Group II Surgery Specimen Level IV Cytospin Fluid HEADER OPERATION: Aspiration right hip PRE-OP DIAGNOSIS: Right hip seroma TISSUE SUBMITTED: Synovial fluid right hip DIAGNOSIS CYTOLOGY Right hip synovial fluid (cytospin and cell block): Negative for malignant cells. Acute inflammation. See comment. SJ:florentin 01/22/2021 COMMENT Clinical correlation and appropriate follow up are necessary. CYTOLOGY STUDY Slides are reviewed. CYTOLOGY GROSS Received is 3 ml of yellow cloudy fluid labeled with the patient's name and and designated per the requisition as right hip. Submitted for cytology preparation including cell block. / florentin 01/19/2021 TC:2 CPT: 26949, 94369
[2021-01-18 19:07] LABS: AUTO B FLUID DILUENT BKGD CT WBC <0.1 RBC <0.01 (W<.1,R<.01)
[2021-01-18 19:08] LABS: Appearance /Synovial Fluid Cloudy (CLEAR); Color / Synovial Fluid Yellow (Pale Yellow); Source / Synovial Fluid RT HIP
[2021-01-18 19:09] LABS: Synovial Fld Mononuclear WBC % 7.7 %; Synovial Fld Polynuclear WBC % 92.3 %
[2021-01-18 19:10] LABS: Synovial Fld Mononuclear WBC # 1.328 10^3/ul
[2021-01-18 19:16] LABS: Monocyte /Synovial Fluid 5 %; Neutrophil 95 % (0-25); RBC /Synovial Fluid 84 /mm3 (0)
[2021-01-18 19:17] LABS: Body Fluid QC Type(s) BF1Q,BF2Q
[2021-01-19 11:55] LABS: Pathologist Comment Reviewed
== END | disposition home or self-care (01) ==
PROVIDERS: PCP Family Medicine; Referring Provider Specialist; Visit Provider Specialist
DX: S70.01XA Contusion of right hip, initial encounter (principal)
CPT/HCPCS: 87015; 87070; 87075; 87116; 87205; 87206; 88108; 88305; 88313; 89050; 89051

== ENCOUNTER → 2021-04-06 11:14 | Outpatient (CLI) | payer MEDICARE, OTHER, SELFPAY ==
[2021-04-03 11:29] VITALS: BMI 28.6
[2021-04-06 14:02] LABS: Vitamin B12 777 pg/mL (211-911)
[2021-04-09 16:19] LABS: Vitamin D 1,25-Dihydroxy 61.8 pg/mL (19.9-79.3)
[2021-04-10 16:54] LABS: Vitamin B1, Thiamine 118.9 nmol/L (66.5-200.0)
== END ==
PROVIDERS: PCP Family Medicine; Referring Provider Psychiatry & Neurology Neurology; Visit Provider Psychiatry & Neurology Neurology
DX: E55.9 Vitamin D deficiency, unspecified (principal); G30.9 Alzheimer's disease, unspecified; F02.80 Dementia in other diseases classified elsewhere, unspecified severity, without behavioral disturbance, psychotic disturbance, mood disturbance, and anxiety
CPT/HCPCS: 36415; 82607; 82652; 82746; 84425

== ENCOUNTER → 2021-04-20 09:34 | Outpatient (CLI) | payer MEDICARE, OTHER, SELFPAY ==
[2021-04-03 11:29] VITALS: BMI 28.6
--- NOTE | 2021-04-20 09:55 | MRI_ITS ---
EXAM DESCRIPTION: MRI of the head CLINICAL HISTORY: 80 years Female, DEMENTIA COMPARISON: CT scan of the head obtained on 08/15/2020 TECHNIQUE: An MRI was performed utilizing axial diffusion and ADC map images followed by axial T2 and FLAIR and gradient echo images followed by sagittal and axial T1 weighted images. T2-weighted images through the head were obtained. FINDINGS: The diffusion weighted axial images and ADC map images of the head show no evidence of restricted diffusion. The denice, medulla and midbrain and cerebellum appear to be normal. The ventricles and sulci are enlarged consistent with age-related cerebral atrophy.. Periventricular focal areas of increased signal are seen in the estevez radiata bilaterally representing nonspecific arteriosclerotic demyelinating changes, commonly found in patients of this age.The basal ganglia appear to be normal. No enhancing masses or lesions are seen. The gradient echo axial images are normal. No evidence of a Chiari I malformation is identified. The V4 segments of the vertebral artery, the basilar artery, the posterior cerebral arteries, the cavernous and supraclinoid carotid arteries, and the M1 segments of the middle cerebral arteries are all normal The orbits including the optic nerves and optic chiasm appear normal. The pituitary and pituitary infundibulum appear to be normal. fThe inner and outer tables of the skull are normal The frontal, ethmoid, maxillary, and sphenoid sinuses are normal. The mastoid air cells are normal. MRI/Brain without Contrast IMPRESSION: Age-related cerebral atrophy. Electronically Signed: John Mcconnell DO at 13:03 EDT Tel , Service support ,
== END ==
PROVIDERS: PCP Family Medicine; Referring Provider Psychiatry & Neurology Neurology; Visit Provider Psychiatry & Neurology Neurology
DX: F03.90 Unspecified dementia, unspecified severity, without behavioral disturbance, psychotic disturbance, mood disturbance, and anxiety (principal)
CPT/HCPCS: 70551

== ENCOUNTER 2021-05-02 09:09 | Inpatient (IN) | payer MEDICARE, OTHER, SELFPAY ==
[2021-01-22 15:20] VITALS: BMI 35.7
[2021-04-03 11:29] VITALS: BMI 28.6
--- NOTE | 2021-04-06 12:55 | CASEMGMT ---
Addendum entered by Estella Valladares 04/11/21 10:51: As per Delores in TCU, it is anticipated pt will have a bed in TCU postoperatively once stable for discharge. PREETHI called son, message left letting him know that it is anticipated pt will be able to go to TCU postoperatively once she is stable for discharge. ARON Farooq Original Note: SW received a message from pt's son, Brett Reyes, inquiring about pt going to rehab at discharge after a hip revision scheduled for 05/02/21. SW called pt's son back, spoke w/him about pt's prior level of function and discharge plan. Son states pt live in the independent living at [facility]. She is independent with ADLs, is mobile, uses a walker. Pt's son cleans her apartment, the facility does the maintenance, pt has a life alert button provided by [facility](that she does not wear). Pt does not cook much, has the option to go to [facility] for meals but does not like their food. Son states pt was diagnosed with mild to moderate dementia. She is still managing at home okay at this time. He states the family's biggest concern for pt is making sure she eats. Pt is is still driving at times though infrequently. We discussed discharge options for pt, including inpt rehab, TCU, and chcf facilities in the community. PREETHI reviewed on the phone w/son all of the nursing homes in the local geographic area. SW also reviewed how SNF is covered by Medicare. Son does think that TCU would be a good option for pt, rather than rehab. SW explained will call to see about a bed, and will let him know. SW explained may not get back to him until next week, son states understanding. PREETHI called Nelli in TCU, message left. PREETHI will continue to follow. ARON Farooq
--- NOTE | 2021-04-20 09:33 | EKG12_ITS ---
Test Reason : PREOP Blood Pressure : / mmHG Vent. Rate : 066 BPM Atrial Rate : 066 BPM P-R Int : 176 ms QRS Dur : 078 ms QT Int : 404 ms P-R-T Axes : 050 004 059 degrees QTc Int : 423 ms Normal sinus rhythm Normal ECG Confirmed by JONNY ABDI, FUNMI ([id number]), purchasing expeditor EMELY ANDERS ([id number]) on 04/23/2021 10:07:09 AM Referred By: Robbie Sanchez Confirmed By:FUNMI FULLER MD
--- NOTE | 2021-04-20 09:33 | RAD_ITS ---
EXAM DESCRIPTION: PORTABLE AP CHEST CLINICAL HISTORY: 80 years Female, PRE-OP PRE-OP COMPARISON: None FINDINGS: The thorax is intact. The heart and mediastinum appear to be within normal limits. The lungs appear to be well areated without evidence of pneumonic consolidation or pleural effusion. Solitary calcified granulomas are noted in both lungs. RAD/Chest PA and Lateral IMPRESSION: No acute pathology. Electronically Signed: John Mcconnell DO at 10:24 EDT Tel , Service support ,
[2021-04-20 10:35] LABS: Absolute Lymphocyte Count 1.19 X10^3/uL (0.83-4.51); Absolute Neutrophil Count 3.6 X10^3/uL (2.0-7.7); Basophil# 0.03 X10^3/uL; Basophil% 0.6 % (0-1); Eosinophil# 0.24 X10^3/uL; Eosinophils% 4.5 % (0-5); Hematocrit 38.6 % (37-47); Hemoglobin 12.1 g/dL (12.0-15.0); Lymphocyte # 1.19 X10^3/ul (0.83-4.51); Lymphocyte % 22.2 % (19-41); Mean Corp Hgb Conc 31.3 g/dL (32-36); Mean Corpuscular Hgb 26.4 pg (27.0-32.0); Mean Corpuscular Volume 84.1 fL (81-99); Mean Platelet Vol. 9.7 fl (6.2-12.0); Monocyte# 0.33 X10^3/uL; Monocyte% 6.2 % (0-10); NRBC Flagged by Analyzer 0 % (0-5); Neutrophil # 3.57 X10^3/uL (2.7-7.7); Neutrophil % 66.5 % (47-70); Platelet Count 257 K/mm3 (150-450); RBC Distribution Width CV 13.9 % (11.6-14.6); RBC Distribution Width SD 42.4 fl (35.1-43.9); Red Blood Count 4.59 M/mm3 (4.2-5.4); White Blood Count 5.4 K/mm3 (4.4-11.0)
[2021-04-20 11:26] LABS: Anion Gap 5 (5-15); BUN 10 mg/dL (7-18); BUN/Creat Ratio 12.5 RATIO (10-20); Chloride 108 mmol/L (98-107); EST Glomerular Filtration Rate 73 mL/min (>60); Est Glom Filt Rate - Afr Amer 88 mL/min (>60); Glucose 112 mg/dL (74-106); Potassium 3.7 mmol/L (3.5-5.1); Sodium Level 142 mmol/L (136-145)
[2021-04-30 18:12] LABS: Albumin, Serum 3.3 g/dL (3.2-5.0)
[2021-05-02] VITALS (14 sets, daily range): BP systolic 122–144; BP diastolic 48–85; PULSE 52–77; RESP 14–17; TEMP 35.2–36.6; O2SAT 94–100; BMI 28.6
[2021-05-02] MEDS: Celecoxib 200 MG Capsule 400 MG PO (10:04)
[2021-05-02] MEDS: Gabapentin 600 MG Tablet PO (10:05)
[2021-05-02] MEDS: Acetaminophen 500 MG Tablet 1000 MG PO ×2 (10:05→20:22)
[2021-05-02] MEDS: Lactated Ringers 1,000 ML 100 ML IV ×2 (10:07→16:25)
[2021-05-02 10:37] LABS: Bedside Glucose 118 mg/dL (70-110)
[2021-05-02] MEDS: Heparin 10,000 UNITS/10 ML Vial 10000 UNITS (13:00)
[2021-05-02] MEDS: Heparin Injection (Vial) 5,000 UNIT/ML VIAL 5000 UNIT (13:00)
[2021-05-02] MEDS: Vancomycin IV 1,000 MG/200 ML BAG 200 MG IV (13:20)
--- OUTSIDE RECORDS SUMMARY | 2021-05-02 14:46 | XMS RPT_ITS | Continuity of Care Document ---
:1940 External Reference #:[id number] Author Name FROYLAN PAGAN Address [address] [place] [address] Care Team Providers Name Role Phone MD José Care Team Information [employer] Jon Andersen DO Care Team Information [employer] Manager [phone] [facility] Care Team Information [employer] Farm Manager [phone] [facility] Care Team Information [employer] Manager [phone] [facility] Care Team Information [employer] Manager [phone] Problems Active Problems Provider Date Prosthetic Robbie Sanchez MD Onset: arthroplasty of the hip Aftercare Robbie Sanchez MD Onset: 12/2017 following joint replacement surgery Prosthetic Robbie Sanchez MD Onset: arthroplasty of the hip Localized, 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 Overweight Farzad Pagan PA-C Onset: Body mass Farzad Pagan PA-C Onset: index 25-29 - overweight Low back pain Farzad Pagan PA-C Onset: 01/04/2019 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 Farzad Pagan PA-C Onset: 03/08 trochanteric pain syndrome Body mass Farzad Pagan PA-C Onset: index 30+ - obesity Varicose veins Robbie Sanchez MD Onset : 08/17/2020 of lower extremity Arthralgia of Robbie Sanchez MD Onset: 08/17/2020 the pelvic region and thigh Postoperative Robbie Sanchez MD Onset: 01/31/2021 seroma Social History Type Date Description Comments Cigarette Use Former ETOH Use Weekly use Recreational Drug Use Denies Use Tobacco Use Start: Unknown End: Patient is a former Unknown smoker Enjoy Exercising Never Exercises Allergies, Adverse Reactions, Alerts Active Allergies Reaction Severity Comments Date Penicillin 04/29/2017 Medications Active Medications SIG Qnty Indications Ordering Date Provider Unknown Vitamin B-12 1PO Qday 100mcg Tablets Unknown Vitamin C 1PO Qday 500mg Tablets Unknown Prevagen 1PO Qday 10mg Capsules Unknown Esomeprazole prn Magnesium 20mg Capsules DR Unknown Vitamin D 1PO Qday 1000Unit Tablets Unknown Donepezil HCL take 1 5mg tablet by Tablets mouth at bedtime Unknown Aspirin 1 Tab PO 81mg Daily Tablets DR History Medications 40tabs Farzad Pagan, 01/04/2019 - Prednisone 4 tabs bid x PA-C 9 5mg 2 days then 3 Tablets tabs bid x 2 days then 2 tabs bid x 2 days then 1 tab bid x 2 days 2caps Z96.64 Robbie Huntley 12/19/2017 - Clindamycin HCL 2 by mouth 1 2 MD Laura 04/16 hour prior to 300mg Capsules procedure 22gm Robbie Huntley 07/25/2017 - Mupirocin use qtip and MD Laura 8 2% apply inside Ointment each nostril twice a day until the day of surgery 22Gram Robbie Huntley 07/22/2017 - Bactroban Nasal apply /4 MD Laura 018 2% inch of ointment Ointment to a clean q-tip and apply to just inside nostril twice a day 30tabs Gene Farrell, 04/29/2017 - Meloxicam 1 by mouth P.A.C. 09/15/2017 15mg every day Tablets Unknown - Ocuvite Eye + Multi 1PO Qday 12/15 03/2021 Tablets Unknown - Omeprazole 1 by mouth 08/14/2020 20mg every day Capsules DR Unknown - Zyrtec Allergy 1PO Qday 9 10mg Tablets Unknown - Oxycodone HCL 1 by mouth 05/04/20 18 5mg every 6 hours Capsules Unknown - Xarelto 1 tab po 12/16/2017 10mg daily Tablets Unknown - Tylenol Extra 2 Tabs PO prn 01/09 Strength 500mg Tablets Unknown - Oxycodone HCL 1-2 tab by 12/17/19 18 5mg mouth every 6 Tablets hours Unknown - Adult 50 Eye 1 Tab PO 09/15/2017 Daily Unknown - Vitamin B12 1 by mouth 09/15/2017 1000mcg every day Tablets ER Unknown - Centrum Silver 1 Tab PO 8 Daily Tablets Unknown - Glucosamine 1 Tab PO 09/15/2017 Chondroitin Daily Advanced Tablets Unknown - Allergy 24-HR 1 Tab PO 09/15/2017 180mg Daily Tablets Unknown - Duloxetine HCL 1 Cap PO [address] Part Unknown - Atorvastatin 1 by mouth 8 Calcium every day 10mg Tablets Vital Signs Date Vital Result Comment 04/18/2021 11:04am 59.4 inches Height 4'11.40 Weight 141.00 lb Weight 63.958 kg BMI (Body 28.1 kg/m2 Mass Index) BP Systolic 132 mmHg BP Diastolic 72 mmHg Heart Rate 70 /min Respiratory 14 /min Rate Body 97.4 ?F Temperature Body 36.3 ?C Temperature Pain Level 0 Sitting 01/31/2021 10:49am Body 97.3 ?F Temperature Body Temperature 36.3 ?C Pain Level 5 Results Test Acquired Facility Test Result H/L Range Note Date 05/02/2021 [facility] 118 mg/dL High 70-110 1 [address] [facility] [place] [address] Bedside test finding [phone] Glucose 04/30/2021 [facility] 3.3 g/dL 3.2-5.[address] [place] [address] Albumin, test finding [phone] Serum 04/30/2021 [facility] DELETED 74-106 [address] Glu mg/[place] [address] Profile. [phone] DELETED mg/dL 7-18 4 BUN DELETED mg/dL 0.55-1.02 5 Creat,Serum DELETED mL/min >60 6 Est GFR DELETED mL/min >60 7 Est GFR - Aa DELETED RATIO 10-20 8 BUN/Cre DELETED mg/dL 8.5-10.1 9 CA,Total Na DELETED mmol/L 136-145 10 DELETED mmol/L 3.5-5.1 11 Potassium CL DELETED mmol/L 98-107 12 DELETED mmol/L 21.0-32.0 13 Co2 DELETED 5-15 14 Gap 04/30/2021 [facility] DELETED 4.4-11.[address] K/mm3 W/[place] [address] [phone] WBC DELETED M/mm3 4.2-5.4 16 RBC DELETED g/dL 12.0-15.0 17 HGB DELETED 37-47 18 HCT DELETED fL 81-99 19 MCV DELETED pg 27.0-32.0 20 MCH DELETED g/dL 32-36 21 MCHC DELETED 11.6-14.6 22 RDW CV DELETED fl 35.1-43.9 23 RDW SD DELETED K/mm3 150-450 24 PLT DELETED 47-70 25 Neut% DELETED X103/uL 2.0-7.7 26 Absolute Neut 04/20/2021 [facility] 5.4 K/mm3 4.4-11.[address] W/[place] [address] WBC [phone] 4.59 M/mm3 4.2-5.4 RBC 12.1 g/dL 12.0-15.0 HGB 38.6 37-47 HCT 84.1 fL 81-99 MCV 26.4 pg Low 27.0-32.0 MCH 31.3 g/dL Low 32-36 MCHC 13.9 11.6-14.6 RDW CV 42.4 fl 35.1-43.9 RDW SD 257 K/mm3 150-450 PLT 9.7 fl 6.2-12.0 MPV 66.5 47-70 Neut% 22.2 19-41 Ly% 6.2 0-10 Ciales% 4.5 0-5 Eo% 0.6 0-1 Baso% 0.000 0.0-0.9 27 Ig% 3.6 X103/uL 2.0-7.7 Absolute Neut 1.19 X103/uL 0.83-4.51 Absolute Lymph 0 0-5 Nucleated RBC 04/20/2021 [facility] 112 mg/dL High 74-106 [address] [place] [address] Glu Profile. [phone] 10 mg/dL 7-18 BUN 0.80 mg/dL 0.55-1.02 29 Creat,Serum 73 mL/min >60 30 Est GFR 88 mL/min >60 31 Est GFR - Aa 12.5 RATIO 10-20 BUN/Cre 9.0 mg/dL 8.5-10.1 CA,Total Na 142 mmol/L 136-145 3.7 mmol/L 3.5-5.1 Potassium CL 108 mmol/L High 98-107 29.0 mmol/L 21.0-32.0 Co2 5 5-15 Gap 04/20/2021 [facility] Reason for [address] Exam: <[place] [address] MRSA/Said NOT E> [phone] Nasal Screen 04/20/2021 [facility] 2.0 mg/dL 1.6- [address] 2.6 [place] [address] Magnesium [phone] MANAGEME NT OF PATIENT CARE PER NURSING PROTOCOL 2 [facility] Laboratory [address] [place], [place], [id number] Ordering Provider: Robbie Sanchez, Copied Provider: Joel Kumar, , , Primary Care Provider: Joel White ed Provider: Robbie Sanchez, Anne Provider Role: Ordering 3 ALREADY DONE 04/20/21 HAD TO CALL FOR ANOTHER ORDER. 4 ALREADY DONE 04/20/21 HAD TO CALL FOR ANOTHER ORDER. 5 ALREADY DONE 04/20/21 HAD TO CALL FOR ANOTHER ORDER. 6 ALREADY DONE 04/20/21 HAD TO CALL FOR ANOTHER ORDER. 7 ALREADY DONE 04/20/21 HAD TO CALL FOR ANOTHER ORDER. 8 ALREADY DONE 04/20/21 HAD TO CALL FOR ANOTHER ORDER. 9 ALREADY DONE 04/20/21 HAD TO CALL FOR ANOTHER ORDER. 10 ALREADY DONE 04/20/21 HAD TO CALL FOR ANOTHER ORDER. 11 ALREADY DONE 04/20/21 HAD TO CALL FOR ANOTHER ORDER. 12 ALREADY DONE 04/20/21 HAD TO CALL FOR ANOTHER ORDER. 13 ALREADY DONE 04/20/21 HAD TO CALL FOR ANOTHER ORDER. 14 ALREADY DONE 04/20/21 HAD TO CALL FOR ANOTHER ORDER. 15 ALREADY DONE 04/20/21 HAD TO CALL FOR ANOTHER ORDER. 16 ALREADY DONE 04/20/21 HAD TO CALL FOR ANOTHER ORDER. 17 ALREADY DONE 04/20/21 HAD TO CALL FOR ANOTHER ORDER. 18 ALREADY DONE 04/20/21 HAD TO CALL FOR ANOTHER ORDER. 19 ALREADY DONE 04/20/21 HAD TO CALL FOR ANOTHER ORDER. 20 ALREADY DONE 04/20/21 HAD TO CALL FOR ANOTHER ORDER. 21 ALREADY DONE 04/20/21 HAD TO CALL FOR ANOTHER ORDER. 22 ALREADY DONE 04/20/21 HAD TO CALL FOR ANOTHER ORDER. 23 ALREADY DONE 04/20/21 HAD TO CALL FOR ANOTHER ORDER. 24 ALREADY DONE 04/20/21 HAD TO CALL FOR ANOTHER ORDER. 25 ALREADY DONE 04/20/21 HAD TO CALL FOR ANOTHER ORDER. 26 ALREADY DONE 04/20/21 HAD TO CALL FOR ANOTHER ORDER. 27 IG% - Im mature Granulocytes (promyelocytes, myelocytes and metamyel ocytes) > 1% indicates that a LEFT SHIFT is Present. 28 Fasting Glucose result from 100 to 125 mg/dL suggests IMPAIRED HOMEOSTASIS per A.D.A. criteria. Please n ote revised GLUCOSE reference range effective 19 18. 29 The hiram dity of the calculated GFR GFRAA in patients over 70 years has not been determined. Clinical correlation is obdulio urias 30 Non-Afri can [place] GFR Calc 31 GFR Calc 32 Reason f or Exam: PRE-OP PRE-OP MRSA MRSA NegativeS. AUREUS S. aureus Negative 33 [facility] [address] [place], [address] [phone] Ordering Provider: Joel Lees, Copied Provider: ROBBIE Toribio, , Primary Care Provider: Joel Kumar Interest ed Provider: Anne Cortés Provider Role: Copied Assessments Date Code Description Provider 04/18/2021 L76.34 Postprocedural seroma of Florencia Meansy, skin and subcutaneous tissue P.A .C. following other procedure 04/18/2021 Z96.641 Presence of right artificial Amanda jostin Luisa, hip joint P.A.C. 01/31/2021 L76.34 Postprocedural seroma of Robbie Sanchez MD skin and subcutaneous tissue following other procedure 01/31/2021 Z96.641 Presence of right artificial Vince Sanchez MD hip joint Plan of Treatment 01/31/2021 - Robbie Sanchez MDL76.34 Postprocedural seroma of skin and subcutaneous tissue following other wmeflxafvI24.641 Presence of right artificial hip joint01/12/2021 - Robbie Sanchez MDZ96.643 Presence of artificial hip joint, mjmxghnirL36.84xA Pain due to internal orthopedic prosth dev/grft, initT84.030D Mech loosening of internal right hip prosthetic joint, subsT84.031D Mech loosening of internal left hip prosthetic joint, subsZ09 Encounter for follow-up examination after completed treatment for conditions other than malignant nxkxmrez57/30/2021 - Leonides Andersen D.O.Z96.641 Presence of right artificial hip gmlxuD37.1 Aftercare following joint replacement gqiyubvP59.11 Unilateral primary osteoarthritis, right hipFollow up: mri and follow up with Dr. Robbie SanchezRecommendations:Patient chart reviewed and patient evaluated. Full clinical discussion had with patient about her con dition. Radiographs shown and reviewed with patient. There are no fractures present and the prosthesis is not loosening. This is more muscular. I would hold off on physical therapy for now and order an mri of the pelvis and follow up with Dr. Robbie Sanchez to determine if further treatment is needed. As far as any bony abnormalities I am not seeing anything. The mri will show if there is any muscle herniation. Patient displayed verbal understanding to all written and oral instructions at this time. Patient is agreeable to the current treatment plan at this time. All their questions were answered to his/her satisfaction and all of his/her concerns were addressed. Advised to call with any questions, concerns or increased pain.08/17/2020 - Robbie Sanchez MD Z96.643 Presence of artificial hip joint, uefqebuqaP92 Encounter for follow-up examination after completed treatment for conditions other than malignant tepdjkmvN53.0 Bilateral primary osteoarthritis of hipI83.93 Asymptomatic varicose veins of bilateral lower xzkddatjztwP96.551 Pain in right hip07/10/2020 - Robbie Sanchez MDZ96.643 Presence of artificial hip joint, efntkeqnkH70 Encounter for follow-up examination after completed treatment for conditions other than malignant ylsaupqlR23.0 Bilateral primary osteoarthritis of hip 04/05/2019 - Robbie Sanchez, MDM79.652 Pain in left eevopR31.642 Presence of left artificial hip aqwojK17.16 Radiculopathy, lumbar xbgdpjY88.061 Spinal stenosis, lumbar region without neurogenic vfwhwiqnjbqb93/12/2019 - NIKOLAI Spencer-CM54.5 Low back oowtW0455 Other intervertebral disc degeneration, lumbar pzajhxP84.642 Presence of left artificial hip ghrziF68.62 Trochanteric bursitis, left hip03/08/2019 - NIKOLAI Spencer-CZ96.642 Presence of left artificial hip ezwqpV77.5 Low back vggnB8033 Other intervertebral disc degeneration, lumbar swqvuzG66.62 Trochanteric bursitis, left hipE66.3 WzcyugdconT40.30 Body mass index (BMI) 30.0-30.9, adult01/04/2019 - NIKOLAI Spencer-CZ96.642 Presence of left artificial hip embgcQ87 Encntr for f/u exam aft trtmt for cond oth than malig zhqmrhV75.5 Low back painNew Therapy: Physical Therapy: Eval&Treat/TfmygaaafqU1363 Other intervertebral disc degeneration, lumbar regionNew Therapy:Physical Therapy: Eval&Treat/Vmwndtaynk13/23/2018 - Robbie Sanchez MDZ96.643 Presence of left artificial hip czfbpG77 Encounter for follow-up examination after completed zurhfvqh33/21/2018 - Robbie Sanchez MDZ96.642 Presence of left artificial hip zpakmA99.62 Trochanteric bursitis, left hipZ47.1 Aftercare following joint replacement cclxygoF17.3 BbgutduivaA89.29 Body mass index (BMI) 29.0-29.9, adult 12/19/2017 - Robbie Sanchez, Z96.642 Presence of left artificial hip jointNew Medication:Clindamycin HCL 300 mg - 2 by mouth 1 hour prior to lpzancuoyJ41.1 Aftercare following joint replacement mgqcphiU49.3 BemngbfcfxR25.29 Body mass index (BMI) 29.0-29.9, adult11/21/2017 - Rex PeralesZ96.642 Presence of left artificial hip scbdmV14.1 Aftercare following joint replacement surgery 09/18/2017 - Robbie Sanchez MDZ96.641 Presence of right artificial hip joint Z47.1 Aftercare following joint replacement sfqzgbv8008/13/2017 - NIKOLAI Spencer-CZ96.641 Presence of right artificial hip pnwueW55.1 Aftercare following joint replacement kouzicu6706/16/2017 - Robbie Sanchez, MDM16.11 Unilateral primary osteoarthritis, right hipNew Labs:CBC With Auto Diff, Ordered: 06/16/17 M16.12 Unilateral primary osteoarthritis, left hipE66.3 ZhudpwnydjQ20.30 Body mass index (BMI) 30.0-30.9, adultRecommendations:BMI results were discussed with patient. Patient given options for nutritional counseling.04/29/2017 - Rex PeralesM16.11 Unilateral primary osteoarthritis, right hipPatient Education:MSK-Total Hip ReplacementFollow up:pre op with Dr. Andersen once cleared Recommendations:Patients pain and symptoms are those related to the osteoarthritis in the hips. Due to the severity of osteoarthritis in the hips, total hip arthroplasties would be warranted and the best chcf definitive treatment for the patient. All surgical and nonsurgical options were discussed with the patient. We did review the potential risks, benefits, and complications of this procedure including but not limited to , infection, nerve, blood vessel, and tendon damage, persistent pain, numbness, tingling, and paresthesias, blood clots, pulmonary embolism, and the requirement for further surgery. The patient is in full understanding and would like to proceed with surgery. Return pre op with Dr. Andersen.M16.12 Unilateral primary osteoarthritis, left hip Functional Status Functional Condition Comment Date Status Glasses Active Cane Active Mental Status Description No Information Available
--- NOTE | 2021-05-02 15:10 | PCM.OPRPT ---
Report of Operation Date of Procedure: 05/02/21 Pre-Operative Diagnosis: Failed right total replacement, femoral loosening. Anterior pseudotumor. Post-Operative Diagnosis: Failed right total replacement, femoral loosening. Anterior seroma. Surgery/Procedure Performed:: Revision right total replacement femoral and acetabular components Description of Surgical Findings:: Stable hip with equal leg lengths the completion of his procedure. We did not encounter a pseudotumor. Anteriorly patient did have a large seroma which had previously been aspirated. No new signs of infection. This was released. It did appear to track with the joint however did not completely release when we debrided the joint. The abductor tendons were healthy. No other signs of pseudotumor or local necrosis from metal ion reaction. Surgeon: Robbie Sanchez assistant distribution manager: Farzad Wright Type of Anesthesia: Spinal Anesthesiologist: Wesly Maharaj Special Medications: Vancomycin, clindamycin, joint cocktail Specimen's removed: 4 separate specimens were sent to microbiology Estimated Blood Loss (mL): 400 Fluids Replaced: 2200 mL crystalloid Description of Procedure: Components used: 1. Landers pentecostal modular 16 x 155 mm stem with 19 mm +0 cone body 2. Joyce X3 polyethylene liner, alpha code D, 32 mm with 10 mm pavon 3. Landers Biolox delta 32 mm, 4 mm neck femoral head Brief history operative indications: 80-year-old female with previous right total replacement. Patient developed evidence of femoral loosening in her cemented implant. In addition she developed anterior swelling. An aspiration was performed the swelling came right back. Based on radiographic evidence of loosening I did recommend revision total hip replacement. Risks and benefits were discussed with the patient which included but were not limited to blood loss, DVTs, PEs, infection, neurovascular damage, and dislocation. In light of all this patient did agree to proceed with a right revision total hip arthroplasty. Procedure: On the date of procedure the patient's R hip was marked in the preoperative area. Patient was then taken back to the operating room where anesthesia assumed control of the C-spine and airway and administered anesthetic. Patient was transferred to the operating table and placed in the lateral decubitus position with the affected hip up. The patient was secured in the bed with the lateral positioners and leg lengths were checked. The R lower extremity was then prepped out in a sterile fashion using chlorhexidine while the surgeon scrubbed. Upon reentering the room the R lower extremity was draped in the standard orthopedic fashion and the incision was marked. A timeout was called and everyone agreed upon the side, the site, the procedure be performed, antibiotics given, and patient's identity. At this time incision was made through skin, subcutaneous tissue, and fat down to fascia. The fascia was then incised and a Charley retractor was placed. The soft tissue was then cleared from the posterior external rotators were identified. The remainder of the short external rotators were taken down and tagged. Capsulectomy was performed as well as synovectomy. We did not encounter the gross amount of fluid noted in the anterior thigh on the lateral portion of the approach. Because of this we carefully dissected anteriorly and we were able to find the area of fluid. There not appear to be a distinct pseudocapsule layer. This area was carefully debrided. We then directed our attention back towards the joint. The hip was dislocated at this time. Head was dissociated from the trunnion using a bone tamp. The stem was easily removed from the canal and cement mantle. The proximal cement mantle was easily removed as it was grossly loose from the bone. Distally we used the Pardeep to remove the remaining cement mantle. Once we had broken through the distal cement mantle we carefully used sequential flexible reamers to ream out any additional cement in the canal. Once this was done we then prepared the femoral bone with the conical reamers for a 16 mm stem. Once this was done we carefully directed our attention towards the acetabulum. Soft tissue and debris were removed from around the acetabulum. The MDM liner was removed. Membrane from behind the liner was sent for culture. Once we had remove the liner we carefully debrided the remainder of the joint and capsule. At this time we carefully irrigated out the wound with 6 L of normal saline removing retractors to remove tension on the skin during this time. Once we completed our 6 L of normal saline with low-pressure lavage we then directed our attention back towards the acetabulum where a trial 32 mm 10 degree pavon liner was fastened into place. We then went back to the femur. The final stem was opened and impacted into place. We then reamed for the 19 mm cone body. 19 mm cone body trial was then put into place. We then trialed the +4 mm head and found good leg lengths and stable hip. Based on this we elected to select this liner had the body combination. Final implants were opened. Hip was dislocated. Trial components were removed. Acetabulum was exposed. Acetabular liner was impacted into place and locking mechanism was verified. Femur was again exposed and the body was placed in the appropriate anteversion trunnion was cleaned and femoral head was impacted into place. Traction and external rotation were again used to reduce the hip. After adequate reduction the hip remained stable with appropriate leg lengths. The wound was then copiously irrigated with a 3-minute dilute Betadine lavage, chlorhexidine followed by normal saline once more, and hemostasis was obtained. The posterior capsule was repaired through drill holes to the greater trochanter . Closure was then done using #1 Vicryl to close the fascia. A 2-0 Vicryl interrupted sutures were used to close the subcutaneous skin. Skin makenzie were used for final skin closure. A sterile dressing was placed. Patient was awakened by anesthesia and transferred to the [facility]. Patient was then transferred to the PACU for recovery. Postoperative plan: Patient will be weightbearing as tolerated. Aspirin for DVT prophylaxis. Doxycycline for 1 week as we follow cultures. Posterior hip precautions should be strictly enforced for 3 months. Complications No intraoperative complications Admit VTE Documentation VTE Present on Admission: No VTE Mechan Device Prophylaxis: SCD's and Thigh High TESHA Hose
--- NOTE | 2021-05-02 16:05 | RAD_ITS ---
STUDY: X-RAY - PELVIS AND RIGHT HIP REASON FOR EXAM: Female, 80 years old. Post Op -- AP both hips on single sam/lateral of op hip PACU TECHNIQUE: 2 views of the pelvis and hip. COMPARISON: November 05, 2017 FINDINGS: Status post right hip hardware revision with the new femoral component being of standard much shorter length than the prior prosthesis. The tip is buttress with intramedullary cemented. The acetabular component is well placed as well. The periphery of the subtrochanteric region of the right femur demonstrates mild cortical thinning and irregularity compared to the original study likely due to recent intervention. There is also some short callus in the proximal one third aspect of the right femoral shaft. Expected postoperative gas and swelling as well as a drainage catheter and skin makenzie of the right hip. Stable left hip. No occult fractures. RAD/Hip Min 2 Views (Portable) IMPRESSION: Status post right hip arthroplasty Electronically Signed: Modesto Jones MD at 17:26 EDT , Service support ,
--- NOTE | 2021-05-02 20:13 | HP.PCM_ITS ---
Documented by User: HUGO Garcia 05/02/21 20:24 HPI - General General Date of Admission: 05/02/21 Date of Service: 05/02/21 Chief Complaint: Right hip revision HPI Narrative ROBERT READ, is a 80 F who presents following a right hip revision completed 05/02/[address] Sanchez. Patient in bed talking with the nurse, no distress noted. Patient states her pain is a 4 out of 10 and is tolerable at this time. [facility] Medical History Alcohol use Arthritis Biliary colic Colitis Dementia DVT (deep venous thrombosis) Former smoker Gastric reflux GERD (gastroesophageal reflux disease) History of deep vein thrombosis History of edema History of pain when walking History of pulmonary edema Hyperlipidemia Injury of head and neck Osteoarthritis Pancreatitis Shortness of breath on exertion Wears glasses Home Medications aspirin 81 mg PO DAILY 07/18/17 [History Last Taken 05/01/21] ascorbic acid (vitamin C) 500 mg PO DAILY 10/29/17 [History Last Taken 05/01/21] cholecalciferol (vitamin D3) 1,000 unit PO DAILY 10/29/17 [History Last Taken 0 05/01/21] calcium carbonate 200 mg calcium (500 mg) chewable tablet 200 mg PO QPC PRN tab 05/24/20 [History Last Taken 05/01/21] vitamin B complex 1 tab PO DAILY 05/24/20 [History Last Taken 05/01/21] omeprazole 20 mg PO PRN PRN 05/29/20 [History Last Taken 05/01/21] acetaminophen 1,000 mg PO Q8 PRN 04/19/21 [History Last Taken 05/01/21] donepezil 5 mg PO QHS 04/19/21 [History Last Taken 05/01/21] Allergy/AdvReac Type Severity Reaction Status Date / Time Penicillins [PCN] Allergy Swelling Verified 04/19/21 09:09 Family History Mother CAD (coronary artery disease) Father CAD (coronary artery disease) Grandmother Breast cancer Arthritis Other Vitamin D deficiency Surgical History History of esophagogastroduodenoscopy (EGD) Hx of bilateral cataract extraction Hx of bilateral hip replacements Hx of colonoscopy Hx of hernia repair Social History Smoking Status: Former smoker Tobacco: How many years used: 10 how long ago did patient quit smokin alcohol intake: current alcohol intake frequency: 0-2 drinks per day Alcohol type: hard liquor substance use type: does not use ROS Constitutional Constitutional: Denies anorexia, chills, fatigue, fever(s) or weakness Cardiovascular Cardiovascular: Denies chest pain, edema or palpitations Respiratory/Chest Respiratory/Chest: Denies cough, shortness of breath at rest or shortness of breath with exertion Gastrointestinal Gastrointestinal: Denies abdominal pain, constipation, diarrhea, nausea or vomiting Genitourinary Genitourinary: Denies dysuria Musculoskeletal Musculoskeletal: Reports extremity pain and joint pain; Denies back pain or joint stiffness Integumentary Integumentary: Denies dry skin Neurologic Neurologic: Denies abnormal speech, confusion, dizziness or focal weakness Psychiatric Psychiatric: Denies anxiety or depression Endocrine Endocrinology: Denies change in body appearance Hematologic/Lymphatic Hematologic/Lymphatic: Denies easy bleeding or easy bruising Vital Signs Vital Signs Vital Signs: 05/02/21 10:10 05/02/21 15:50 05/02/21 16:00 Temperature 96.9 F L 95.3 F L Temperature Source Temporal Temporal Pulse Rate 77 59 L 55 L Pulse Strength Normal (2+) Respiratory Rate 16 16 16 Respiratory Pattern Normal Normal Blood Pressure 144/59 H 122/48 H 138/54 H Blood Pressure Mean 87 72 82 Blood Pressure Source Monitor Monitor Monitor Blood Pressure Position Semi-Fowlers Semi-Fowlers Semi-Fowlers Blood Pressure Location Right Arm Right Arm Right Arm Baseline BP 144/59 144/59 Pulse Ox 96 100 100 Oxygen Delivery Method Room Air Simple Mask Simple Mask Oxygen Flow Rate (L/min) 6 6 05/02/21 16:15 05/02/21 16:30 05/02/21 16:45 Temperature Temperature Source Pulse Rate 62 59 L 52 L Pulse Strength Respiratory Rate 16 16 16 Respiratory Pattern Blood Pressure 132/48 H 135/48 H 135/54 H Blood Pressure Mean 76 77 81 Blood Pressure Source Monitor Monitor Monitor Blood Pressure Position Semi-Fowlers Semi-Fowlers Supine Blood Pressure Location Right Arm Right Arm Right Forearm Baseline BP 144/59 144/59 144/59 Pulse Ox 100 100 98 Oxygen Delivery Method Simple Mask Simple Mask Simple Mask Oxygen Flow Rate (L/min) 6 6 6 05/02/21 17:00 05/02/21 17:14 05/02/21 17:30 Temperature Temperature Source Pulse Rate 58 L 61 58 L Pulse Strength Respiratory Rate 16 16 16 Respiratory Pattern Blood Pressure 135/56 H 133/56 H 131/60 H Blood Pressure Mean 82 81 83 Blood Pressure Source Monitor Monitor Monitor Blood Pressure Position Semi-Fowlers Semi-Fowlers Supine Blood Pressure Location Right Arm Right Arm Right Arm Baseline BP 144/59 144/59 144/59 Pulse Ox 100 98 96 Oxygen Delivery Method Simple Mask Simple Mask Simple Mask Oxygen Flow Rate (L/min) 6 6 6 05/02/21 17:45 05/02/21 18:00 05/02/21 19:08 Temperature 97.8 F 97.8 F Temperature Source Temporal Oral Pulse Rate 57 L 62 64 Pulse Strength Respiratory Rate 16 16 14 Respiratory Pattern Blood Pressure 137/71 H 138/54 H Blood Pressure Mean 93 82 Blood Pressure Source Monitor Monitor Monitor Blood Pressure Position Supine Supine Semi-Fowlers Blood Pressure Location Right Arm Right Arm Right Arm Baseline BP 144/59 144/59 Pulse Ox 97 94 96 Oxygen Delivery Method Simple Mask Room Air Room Air Oxygen Flow Rate (L/min) 6 Weight Weight: 141 lb 15.643 oz Body Mass Index (BMI) 28.6 Physical Exam Const alert, oriented x3 and no apparent distress General Appearance: cooperative HEENT normocephalic and head/scalp atraumatic Eyes conjunctivae normal and no scleral icterus Neck supple and no JVD General: trachea midline Resp normal respiratory effort, normal air movement and clear to auscultation bilaterally Cardio regular rate, regular rhythm, S1 normal heart sound, S2 normal heart sound and peripheral pulses 2+ throughout GI normal to inspection, nondistended, normoactive bowel sounds, soft to palpation and non-tender Extremity normal capillary refill and no clubbing, cyanosis or edema Peripheral Pulses: Yes pulses 2+ throughout Right Lower Extremity: hip joint inspection, palpation (Tender), ROM (Limited postop) and neurovascular exam (Intact) Skin Skin Narrative: Patient has surgical incision to right hip, dressing dry and intact. General Skin Exam: no breakdown and turgor normal Lesions: no lesions Rashes: no rashes Neuro no focal motor deficits and no sensory deficits noted Speech: speech normal Motor Exam: Negative for general weakness Psych cooperative and affect normal Appearance: appropriate Results Lab / Micro Data Result Diagrams: 04/20/21 10:07 04/20/21 10:07 Labs: Laboratory Results - last 24 hr 05/02/21 09:47: POC Glucose 118 H Radiology Impression Hip X-Ray 05/02/21 16:05 IMPRESSION: Status post right hip arthroplasty Electronically Signed: Modesto Jones MD at 17:26 EDT , Service support , Assessment & Plan Assessment/Plan (1) Status post right hip replacement: PLAN: 1. Right hip revision -Surgery date 05/02/[address] Sanchez -Graduated pain management ordered per surgeon -PT and OT to eval and treat -CBC and BMP ordered daily 2. Alzheimer's -Continue donepezil -Patient currently alert and oriented x3 3. GERD -Patient on omeprazole, will continue pantoprazole while inpatient as therapeutic interchange -Famotidine also ordered daily DVT prophylaxis-SCDs, patient to start Eliquis 05/03/2021 This patient was seen by HUGO Garcia under the supervision of Dr. Galinod. Documented by User: Dr. Aleks Galindo MD 05/02/21 21:02 HPI - General General Date of Admission: 05/02/21 [facility] Medical History Alcohol use Arthritis Biliary colic Colitis Dementia DVT (deep venous thrombosis) Former smoker Gastric reflux GERD (gastroesophageal reflux disease) History of deep vein thrombosis History of edema History of pain when walking History of pulmonary edema Hyperlipidemia Injury of head and neck Osteoarthritis Pancreatitis Shortness of breath on exertion Wears glasses Home Medications aspirin 81 mg PO DAILY 07/18/17 [History Last Taken 05/01/21] ascorbic acid (vitamin C) 500 mg PO DAILY 10/29/17 [History Last Taken 05/01/21] cholecalciferol (vitamin D3) 1,000 unit PO DAILY 10/29/17 [History Last Taken 05/01/21] calcium carbonate 200 mg calcium (500 mg) chewable tablet 200 mg PO QPC PRN tab 05/24/20 [History Last Taken 05/01/21] vitamin B complex 1 tab PO DAILY 05/24/20 [History Last Taken 05/01/21] omeprazole 20 mg PO PRN PRN 05/29/20 [History Last Taken 05/01/21] acetaminophen 1,000 mg PO Q8 PRN 04/19/21 [History Last Taken 05/01/21] donepezil 5 mg PO QHS 04/19/21 [History Last Taken 05/01/21] Allergy/AdvReac Type Severity Reaction Status Date / Time Penicillins [PCN] Allergy Swelling Verified 04/19/21 09:09 Family History Mother CAD (coronary artery disease) Father CAD (coronary artery disease) Grandmother Breast cancer Arthritis Other Vitamin D deficiency Surgical History History of esophagogastroduodenoscopy (EGD) Hx of bilateral cataract extraction Hx of bilateral hip replacements Hx of colonoscopy Hx of hernia repair Social History Smoking Status: Former smoker Tobacco: How many years used: 10 how long ago did patient quit smokin alcohol intake: current alcohol intake frequency: 0-2 drinks per day Alcohol type: hard liquor substance use type: does not use Results Lab / Micro Data Result Diagrams: 04/20/21 10:07 04/20/21 10:07 Charges/Coding Addendum Addendum: Patient was seen and examined independently. I agree with assessment and plan by FOSTER GarciaC In summary patient is an 80-year-old female with a significant history of GERD and Alzheimer's disease who is postop day 0 for right hip revision. Patient complains of right lower back pain. She denies any other symptoms. Review of systems Constitutional: Denies anorexia and change in weight Eyes: Denies blurry vision, change in eye color, change in vision, discharge from eye(s), double vision, erythema, eye pain, loss of vision or other HEENT: Denies abnormal hearing, dysphagia, ear pain, epistaxis, headache(s), hearing loss, nasal congestion, nasal discharge, post nasal drip, sinus pressure, sore throat or other Cardiovascular: Denies chest pain. Denies dyspnea on exertion, orthopnea and paroxysmal nocturnal dyspnea Respiratory/Chest: Denies cough, excessive phlegm production, shortness of breath with exertion and wheezing Gastrointestinal: Denies abdominal pain, coffee ground emesis, constipation, diarrhea, dyspepsia, hematemesis, hematochezia, loose stools, melena, nausea, vomiting or other Genitourinary: Denies burning urination, difficulty urinating, dysuria, he maturia, nocturia, urinary frequency, urinary hesitancy, urinary incontinence, urinary urgency or other Musculoskeletal: Right lower back pain Neurologic: Denies abnormal gait, abnormal speech, confusion, disequilibrium, dizziness, focal weakness, headache(s), numbness, paresthesias, seizure-like activity, seizures, syncope, tingling, tremor(s) or other Psychiatric: Denies anxiety, depression, homicidal ideation, suicidal ideation or other Endocrinology: Denies change in body appearance, cold intolerance, excessive sweating, heat intolerance, polydipsia, polyuria or other Hematologic/Lymphatic: Denies anemia, easy bleeding, easy bruising, lymphadenopathy or other Integumentary: Denies rashes on buttocks. Allergic/Immunologic: Denies rhinitis, hives, eczema, asthma or other Physical exam: General: Well-nourished, well-developed, no acute distress Head: Normocephalic, atraumatic, no tenderness Eyes: PERRLA, EOMI ENT, no trauma, moist mucous membranes, no rhinorrhea Neck: Nontender, full range of motion, no spinal tenderness, deformities, step- off CVS: Regular rate and rhythm Respiratory no acute distress, clear to auscultation bilaterally, chest wall nontender, no wheezing Abdomen: Soft, nontender, nondistended, normal bowel sounds, no masses : Deferred Back: Nontender, no CVA tenderness, no midline spinal tenderness, deformities, step-offs Extremities: Right hip with intact dressing and Hemovac in place. Skin: Normal color, no trauma, abrasions Neuro: Alert, oriented, cranial nerves II through XII grossly intact. Psychiatry: Normal mood. Normal affect. Not depressed. Not anxious. Right hip revision Management by primary . GERD Continue Prilosec prn. Also started on Pepcid by orthopedic surgery. Alzheimer disease Aricept continued DVT prophylaxis Xarelto; TESHA luis and SCD continued. Visit Charges Inpatient E&M: 40260 Subs Hosp L2
[2021-05-02] MEDS: Doxycycline 100 MG CAPSULE PO (20:21)
[2021-05-02] MEDS: Donepezil HCl 5 MG Tablet PO (20:22)
[2021-05-02] MEDS: Senna/Docusate Sodium 1 Tablet 2 TABLET PO (20:22)
[2021-05-03] MEDS: Lactated Ringers 1,000 ML 100 ML IV (03:02)
[2021-05-03 03:08] VITALS: BP 99/69; PULSE 70; RESP 16; TEMP 37; O2SAT 97
[2021-05-03] MEDS: Calcium Carbonate 500 MG Tablet PO ×2 (03:13→09:53)
[2021-05-03] MEDS: Acetaminophen 500 MG Tablet 1000 MG PO ×3 (05:01→21:46)
[2021-05-03] MEDS: Rivaroxaban 10 MG Tablet PO (05:01)
[2021-05-03 06:23] LABS: Hematocrit 27.5 % (37-47); Hemoglobin 8.8 g/dL (12.0-15.0); Mean Corpuscular Volume 84.4 fL (81-99); Mean Platelet Vol. 9.5 fl (6.2-12.0); Platelet Count 183 K/mm3 (150-450); RBC Distribution Width CV 13.7 % (11.6-14.6); RBC Distribution Width SD 42.1 fl (35.1-43.9); Red Blood Count 3.26 M/mm3 (4.2-5.4); White Blood Count 5.4 K/mm3 (4.4-11.0)
[2021-05-03 06:45] LABS: Anion Gap 5 (5-15); BUN 13 mg/dL (7-18); BUN/Creat Ratio 22.8 RATIO (10-20); Calcium,Total 8.1 mg/dL (8.5-10.1); Chloride 107 mmol/L (98-107); Creatinine, Serum 0.57 mg/dL (0.55-1.02); EST Glomerular Filtration Rate 108 mL/min (>60); Est Glom Filt Rate - Afr Amer 131 mL/min (>60); Estimated Creatinine Clearance 44.86 ml/min; Glucose 111 mg/dL (74-106); Potassium 4.2 mmol/L (3.5-5.1); Sodium Level 139 mmol/L (136-145)
[2021-05-03 06:56] VITALS: BP 117/51; PULSE 76; RESP 17; TEMP 36.9; O2SAT 92
[2021-05-03] MEDS: oxyCODONE 5 MG Tablet PO ×3 (07:37→16:32)
--- NOTE | 2021-05-03 08:30 | CASEMGMT ---
Addendum entered by Ene Zaman 05/03/21 10:31: Pt's son Brett is present at [facility]. SW in to speak with pt and Brett. SW updated pt and Brett that pt has been accepted to TCU and will discharge to TCU when medically cleared. SW explained Medicare coverage at SNF. Patient was provided a list of SNF providers including quality and resource use data and consistent with the patient?s preferred geographic region, medical needs, and insurance network. Pt and Brett confirm preferred provider is [facility] TCU. Plan: TCU Addendum entered by Ene Zaman 05/03/21 09:11: PREETHI spoke with PA, plan is for pt to discharge to TCU tomorrow. SW placed a call to Delores with TCU and updated her. Plan: TCU tomorrow Original Note: Social Work Note SW reviewed chart. Pt's son requested pt admit to TCU at discharge and referral has been made to TCU. PREETHI placed a call to Delores with TCU. TCU is able to accept pt today. Plan: TCU when medically ready Ene Zaman ELECTRICIAN[employer]S ASSISTANT, [employer]
--- NOTE | 2021-05-03 09:22 | PN.ORTHO_ITS ---
Subjective Subjective The patient was sitting in bedside chair upon examination. Patient denies any chest pain, shortness of breath, dizziness, lightheadedness, nausea or vomiting, or calf pain. Pain is controlled on medications. No adverse overnight events. Patient does have a Hemovac drain with the right hip. There was approximately 230 cc removed over the past 12 hours. Patient complains of some soreness in the right thigh. Plan is for patient to go to the transitional care unit when ready. Objective Data Objective Data Vital Signs: Vital Signs Temp Pulse Resp BP Pulse Ox 98.4 F 76 17 117/51 L 92 05/03/21 06:56 05/03/21 06:56 05/03/21 06:56 05/03/21 06:56 05/03/21 06:56 Oxygen Flow Rate (L/min) 6 Oxygen Delivery Method Room Air Weight: 64.4 kg Body Mass Index (BMI) 28.6 Intake & Output: Intake and Output for Last 24 Hours 05/01/21 05/02/21 05/03/21 23:59 23:59 23:59 Intake Total 2058 1758.00 / 1758.00 Output Total 200 / 200 Balance 2028 1558.00 / 1558.00 Lab / Micro Data Result Diagrams: 05/03/21 05:58 05/03/21 05:58 Labs: Laboratory Results - last 24 hr 05/02/21 09:47: POC Glucose 118 H 05/03/21 05:58: WBC 5.4, RBC 3.26 L, Hgb 8.8 L, Hct 27.5 L, MCV 84.4, MCH 27.0, MCHC 32.0, RDW Std Deviation 42.1, RDW Coeff of Marian 13.7, Plt Count 183, MPV 9.5 05/03/21 05:58: Sodium 139, Potassium 4.2, Chloride 107, Carbon Dioxide 27.0, Anion Gap 5, BUN 13, Creatinine 0.57, Estim Creat Clear Calc 44.86, Est GFR (MDRD) Af Amer 131, Est GFR (MDRD) Non-Af 108, BUN/Creatinine Ratio 22.8 H, Gl ucose 111 H, Calcium 8.1 L Micro: Microbiology 04/20/21 10:07 Swab (Method) Nasal Screen MRSA/MSSA - Final Radiography Diagnostic Testing: Radiology Impression Hip X-Ray 05/02/21 16:05 IMPRESSION: Status post right hip arthroplasty Electronically Signed: Modesto Jones MD at 17:26 EDT , Service support , Physical Exam Narrative Vital signs stable and afebrile. Patient is able to plantarflex and dorsiflex actively. Sensation is intact to light touch to saphenous, sural, superficial and deep peroneal, and tibial distribution. Dressing is clean dry and intact. Hemovac drain in place with approximately 50% capacity and canister. There is been 230 cc removed Negative Homans bilaterally, negative signs and symptoms of DVT. Const alert, oriented x3 and no apparent distress Assessment & Plan Assessment/Plan (1) Status post right hip replacement: PLAN: 1. S/P revision right total hip arthroplasty with femoral and acetabular components POD #1 2. Continue Pain Medications: Tylenol and oxycodone 3. DVT Prophylaxis: Xarelto for 2 weeks postoperatively due to previous DVT. At 2 weeks postoperatively will switch over to aspirin 81 mg twice daily for an additional 2 weeks 4. PT/OT: Weightbearing as tolerated with walker. Strict posterior hip dislocation precautions for 3 months postoperatively 5. H & H: 8.8/27.5, asymptomatic. Insert anemia. Patient denies any dizziness or lightheadedness. We will continue to monitor. Will place order for repeat CBC tomorrow. 6. Encouraged Incentive Spirometry 7. Continue postoperative medical management per medicine 8. Postoperative Hemovac: Seroma was identified and surgery. Hemovac drain was placed. There is been 230 cc removed. Plan will be for removal of the hemot horax drain tomorrow. 9. Continue antibiotics postoperatively while following cultures: Cultures are pending. Patient currently on doxycycline for 1 week postoperatively 10. Disposition: Plan will be for discharge possibly tomorrow to the transitional care unit. Case management has been involved and a bed is available. We will pull the Hemovac drain tomorrow. Patient will continue with physical therapy. Continue to follow cultures and continue with antibiotic for 1 week postoperatively.
[2021-05-03] MEDS: Vitamin B Comp W-C Capsule 1 CAP PO (09:51)
[2021-05-03] MEDS: Ascorbic Acid 500 MG Tablet PO (09:51)
[2021-05-03] MEDS: Cholecalciferol (VIT D3) 25 MCG TABLET (1,000 UNITS) PO (09:51)
[2021-05-03] MEDS: Doxycycline 100 MG CAPSULE PO ×2 (09:51→21:47)
[2021-05-03] MEDS: Famotidine 20 MG Tablet PO (09:51)
[2021-05-03] MEDS: Ensure Surgery 237 ML LIQUID PO ×3 (09:52→16:33)
--- NOTE | 2021-05-03 10:30 | PN.HOSP_ITS ---
Documented by User: John MENCHACA 05/03/21 10:36 Subjective Subjective Patient is an 80-year-old female comfortably resting in a chair, alert and orient x3. Patient denies any change or progression in symptoms from yesterday. Denies chest pain, shortness of breath, palpitations, hemoptysis, sputum produ ction, fever, chills, N/V/D. Objective Data Objective Data Vital Signs: Vital Signs Temp Pulse Resp BP Pulse Ox 98.4 F 76 17 117/51 L 92 05/03/21 06:56 05/03/21 06:56 05/03/21 06:56 05/03/21 06:56 05/03/21 06:56 Oxygen Flow Rate (L/min) 6 Oxygen Delivery Method Room Air Weight: 141 lb 15.643 oz Body Mass Index (BMI) 28.6 Intake & Output: Intake and Output for Last 24 Hours 05/01/21 05/02/21 05/03/21 23:59 23:59 23:59 Intake Total 2058 1758.00 / 1758.00 Output Total 200 / 200 Balance 2028 1558.00 / 1558.00 Lab / Micro Data Result Diagrams: 05/03/21 05:58 05/03/21 05:58 Labs: Laboratory Results - last 24 hr 05/02/21 09:47: POC Glucose 118 H 05/03/21 05:58: WBC 5.4, RBC 3.26 L, Hgb 8.8 L, Hct 27.5 L, MCV 84.4, MCH 27.0, MCHC 32.0, RDW Std Deviation 42.1, RDW Coeff of Marian 13.7, Plt Count 183, MPV 9.5 05/03/21 05:58: Sodium 139, Potassium 4.2, Chloride 107, Carbon Dioxide 27.0, Anion Gap 5, BUN 13, Creatinine 0.57, Estim Creat Clear Calc 44.86, Est GFR (MDRD) Af Amer 131, Est GFR (MDRD) Non-Af 108, BUN/Creatinine Ratio 22.8 H, Glucose 111 H, Calcium 8.1 L Micro: Microbiology 05/02/21 Unknown Tissue - Hip Gram Stain - Final 05/02/21 Unknown Tissue - Hip Gram Stain - Final 05/02/21 Unknown Tissue - Hip Gram Stain - Final 04/20/21 10:07 Swab (Method) Nasal Screen MRSA/MSSA - Final Radiography Diagnostic Testing: Radiology Impression Hip X-Ray 05/02/21 16:05 IMPRESSION: Status post right hip arthroplasty Electronically Signed: Modesto Jones MD at 17:26 EDT , Service support , Physical Exam Const alert, oriented x3 and no apparent distress HEENT head/scalp atraumatic and moist oral mucous membranes Head and Scalp: normocephalic Eyes PERRL, EOMs intact bilaterally and conjunctivae normal Neck no lymphadenopathy, supple and no JVD Resp normal respiratory effort, no retractions and no use of accessory muscles Cardio regular rate, regular rhythm, no murmurs and no JVD GI normal to inspection, nondistended, normoactive bowel sounds, soft to palpation and non-tender Extremity normal to inspection, full ROM and no clubbing, cyanosis or edema Skin no rashes or lesions noted, no wounds and skin turgor normal Neuro CN's II-XII intact bilaterally Psych affect normal Assessment & Plan Assessment/Plan (1) Status post right hip replacement: (2) Alzheimer's disease: (3) GERD (gastroesophageal reflux disease): PLAN: Patient is an 80-year-old female who presents to the hospital medicine team on consult from the orthopedics department status post right total hip replacement. 1) Alzheimers Continue donepezil. 2) GERD Continue pantoprazole and famotidine. 3) right total hip replacement Surgery conducted on 05/02/21. Management per Dr. Sanchez DVT - Prophylaxis - SCD's. Patient seen by John Small PA-C, under the supervision of Dr. Greene. Documented by User: Dr. Solange Greene MD 05/03/21 13:31 Objective Data Lab / Micro Data Result Diagrams: 05/03/21 05:58 05/03/21 05:58 Charges/Coding Addendum Addendum: Patient seen by John Small PA-C under my supervision Patient seen and examined. She has no complaints today and feels well. She does have some pain at the surgical site with movement. Review of systems otherwise negative. She has remained hemodynamically stable. O/E: Const alert, oriented x3 and no apparent distress HEENT head/scalp atraumatic and moist oral mucous membranes Head and Scalp: normocephalic Eyes PERRL, EOMs intact bilaterally and conjunctivae normal Neck no lymphadenopathy, supple and no JVD Resp normal respiratory effort, no retractions and no use of accessory muscles Cardio regular rate, regular rhythm, no murmurs and no JVD GI normal to inspection, nondistended, normoactive bowel sounds, soft to palpation and non-tender Extremity normal to inspection, full ROM and no clubbing, cyanosis or edema; intact dressing over surgical site Skin no rashes or lesions noted, no wounds and skin turgor normal Neuro CN's II-XII intact bilaterally Psych affect normal TOday is POD 1 for right total hip replacement. PT/OT on board. Fall precautions. Continue current pain meds; continue donepezil for Alzheimer's disease. Continue pantoprazole for GERD. on xarelto 10mg daily for DVT pro phylaxis. Encourage incentive spirometry use. Will need placement. Rest as per John Small PA-C under my supervision Visit Charges Inpatient E&M: 92353 Subs Hosp L2
[2021-05-03 12:00] VITALS: BP 108/88; PULSE 82; RESP 16; TEMP 36.8; O2SAT 95
[2021-05-03] MEDS: 0.9% Saline Lock 10 ML Syringe IV (14:45)
[2021-05-03 16:30] VITALS: BP 133/81; PULSE 92; RESP 16; TEMP 36.3; O2SAT 100
[2021-05-03] MEDS: Donepezil HCl 5 MG Tablet PO (21:47)
[2021-05-03] MEDS: Senna/Docusate Sodium 1 Tablet 2 TABLET PO (21:47)
[2021-05-03 22:09] VITALS: BP 109/43; PULSE 92; RESP 18; TEMP 37.3; O2SAT 95
[2021-05-04 02:57] VITALS: BP 108/55; PULSE 75; RESP 18; TEMP 36.8; O2SAT 93
[2021-05-04] MEDS: Acetaminophen 500 MG Tablet 1000 MG PO ×2 (06:11→15:25)
[2021-05-04 07:01] LABS: Mean Corpuscular Hgb 26.9 pg (27.0-32.0); Mean Corpuscular Volume 84.2 fL (81-99); Platelet Count 178 K/mm3 (150-450); RBC Distribution Width CV 14.3 % (11.6-14.6); RBC Distribution Width SD 43.7 fl (35.1-43.9); Red Blood Count 2.97 M/mm3 (4.2-5.4); White Blood Count 5.6 K/mm3 (4.4-11.0)
[2021-05-04 07:40] VITALS: BP 109/47; PULSE 69; RESP 16; TEMP 36.6; O2SAT 96
[2021-05-04] MEDS: oxyCODONE 5 MG Tablet PO ×2 (07:58→15:24)
[2021-05-04] MEDS: Rivaroxaban 10 MG Tablet PO (09:28)
[2021-05-04] MEDS: Doxycycline 100 MG CAPSULE PO (09:28)
[2021-05-04] MEDS: Senna/Docusate Sodium 1 Tablet 2 TABLET PO (09:28)
[2021-05-04] MEDS: Cholecalciferol (VIT D3) 25 MCG TABLET (1,000 UNITS) PO (09:28)
[2021-05-04] MEDS: Vitamin B Comp W-C Capsule 1 CAP PO (09:28)
[2021-05-04] MEDS: Famotidine 20 MG Tablet PO (09:28)
[2021-05-04] MEDS: Ascorbic Acid 500 MG Tablet PO (09:28)
[2021-05-04] MEDS: Ensure Surgery 237 ML LIQUID PO ×2 (09:33→18:34)
--- NOTE | 2021-05-04 11:04 | PN.HOSP_ITS ---
Documented by User: John MENCHACA 05/04/21 11:15 Subjective Subjective Patient is a 80-year-old female comfortably resting in bed, alert and orient x3. Patient reports no progression or change in symptoms from yesterday. Denies chest pain, shortness of breath, palpitations, hemoptysis, sputum production, fever, chills, N/V/D. Objective Data Objective Data Vital Signs: Vital Signs Temp Pulse Resp BP Pulse Ox 97.9 F 69 16 109/47 L 96 05/04/21 07:40 05/04/21 07:40 05/04/21 07:40 05/04/21 07:40 05/04/21 07:40 Oxygen Flow Rate (L/min) 6 Oxygen Delivery Method Room Air Weight: 141 lb 15.643 oz Body Mass Index (BMI) 28.6 Intake & Output: Intake and Output for Last 24 Hours 05/02/21 05/03/21 05/04/21 23:59 23:59 23:59 Intake Total 2058 2658.00 / 2858.00 300 / 300 Output Total 270 / 270 40 / 40 Balance 2028 2388.00 / 2588.00 260 / 260 Lab / Micro Data Result Diagrams: 05/04/21 06:30 05/03/21 05:58 Labs: Laboratory Results - last 24 hr 05/04/21 06:30: WBC 5.6, RBC 2.97 L, Hgb 8.0 L, Hct 25.0 L, MCV 84.2, MCH 26.9 L , MCHC 32.0, RDW Std Deviation 43.7, RDW Coeff of Marian 14.3, Plt Count 178, MPV 10.0 Micro: Microbiology 05/04/21 09:34 Mucosa - Nasopharyngeal SARS-CoV-2 Antigen (Rapid) - Final 05/02/21 Unknown Tissue - Hip Gram Stain - Final 05/02/21 Unknown Tissue - Hip Wound Culture - Preliminary Coag Negative Staph 05/02/21 Unknown Tissue - Hip Gram Stain - Final 05/02/21 Unknown Tissue - Hip Wound Culture - Preliminary No growth-Final to follow 05/02/21 Unknown Tissue - Hip Gram Stain - Final 04/20/21 10:07 Swab (Method) Nasal Screen MRSA/MSSA - Final Physical Exam Const alert, oriented x3 and no apparent distress HEENT head/scalp atraumatic and moist oral mucous membranes Head and Scalp: normocephalic Eyes EOMs intact bilaterally and conjunctivae normal Neck no lymphadenopathy, supple and no JVD Resp normal respiratory effort, no retractions, no use of accessory muscles and clear to auscultation bilaterally Cardio regular rate, regular rhythm, no murmurs and no JVD GI normal to inspection, nondistended, normoactive bowel sounds, soft to palpation and non-tender Extremity normal to inspection, full ROM and no clubbing, cyanosis or edema Skin no rashes or lesions noted, no wounds, skin turgor normal and no jaundice Neuro CN's II-XII intact bilaterally Psych affect normal Assessment & Plan Assessment/Plan (1) Status post right hip replacement: (2) Alzheimer's disease: (3) GERD (gastroesophageal reflux disease): PLAN: Patient is an 80-year-old female who presents to the hospital medicine team on consult from the orthopedics department status post right total hip replacement. Patient to discharge to TCU today for follow on care. 1) Alzheimers Continue donepezil. 2) GERD Continue pantoprazole and famotidine. 3) right total hip replacement Surgery conducted on 05/02/21. Management per Dr. Sanchez DVT - Prophylaxis - SCD's. Patient seen by John Small PA-C, under the supervision of Dr. Greene. Documented by User: Dr. Solange Greene MD 05/04/21 13:08 Objective Data Lab / Micro Data Result Diagrams: 05/04/21 06:30 05/03/21 05:58 Charges/Coding Addendum Addendum: Patient seen by John Small PA-C under my supervision Patient seen and examined. She has no complaints today and feels well. Pain at right hip has improved and she had no active complaints. Review of systems was otherwise negative. She has otherwise remained hemodynamically stable. O/E: Const alert, oriented x3 and no apparent distress HEENT head/scalp atraumatic and moist oral mucous membranes Head and Scalp: normocephalic Eyes PERRL, EOMs intact bilaterally and conjunctivae normal Neck no lymphadenopathy, supple and no JVD Resp normal respiratory effort, no retractions and no use of accessory muscles Cardio regular rate, regular rhythm, no murmurs and no JVD GI normal to inspection, nondistended, normoactive bowel sounds, soft to palpation and non-tender Extremity normal to inspection, full ROM and no clubbing, cyanosis or edema; intact dres sing over surgical site Skin no rashes or lesions noted, no wounds and skin turgor normal Neuro CN's II-XII intact bilaterally Psych affect normal TOday is POD 2 for right total hip replacement. PT/OT on board. Fall precautions. Continue current pain meds; continue donepezil for Alzheimer's disease. Continue pantoprazole for GERD. on xarelto 10mg daily for DVT prophylaxis. Encourage incentive spirometry use. Awaiting placement. Rest as per John Small PA-C's note, which I have reviewed and endorsed. Visit Charges Inpatient E&M: 60338 Subs Hosp L2
--- NOTE | 2021-05-04 12:17 | PN.ORTHO_ITS ---
Subjective Subjective Patient is s/p revision right hip total replacement femoral and acetabular components with Dr. Sanchez. Patient resting comfortably in bed. Rates pain 6/ 10 at rest. With movement 10/10. States taking oxycodone and Tylenol and ice help to relieve pain. Patient has been up with therapy. Walking with the assit of a walker. Afebrile, no chest pain, shortness of breath, negative calf pain/ erythema, and no other signs of DVT. Patient has Hemovac drain with recorded 110 cc drainage. Patient is cultures grew out coag negative staph today. Will consult infectious disease. Objective Data Objective Data Vital Signs: Vital Signs Temp Pulse Resp BP Pulse Ox 97.9 F 69 16 109/47 L 96 05/04/21 07:40 05/04/21 07:40 05/04/21 07:40 05/04/21 07:40 05/04/21 07:40 Oxygen Flow Rate (L/min) 6 Oxygen Delivery Method Room Air Weight: 64.4 kg Body Mass Index (BMI) 28.6 Intake & Output: Intake and Output for Last 24 Hours 05/02/21 05/03/21 05/04/21 23:59 23:59 23:59 Intake Total 2058 2658.00 / 2858.00 300 / 300 Output Total 30 30 270 / 270 40 / 40 Balance 2028 2388.00 / 2588.00 260 / 260 Lab / Micro Data Result Diagrams: 05/04/21 06:30 05/03/21 05:58 Labs: Laboratory Results - last 24 hr 05/04/21 06:30: WBC 5.6, RBC 2.97 L, Hgb 8.0 L, Hct 25.0 L, MCV 84.2, MCH 26.9 L , MCHC 32.0, RDW Std Deviation 43.7, RDW Coeff of Marian 14.3, Plt Count 178, MPV 10.0 Micro: Microbiology 05/04/21 09:34 Mucosa - Nasopharyngeal SARS-CoV-2 Antigen (Rapid) - Final 05/02/21 Unknown Tissue - Hip Gram Stain - Final 05/02/21 Unknown Tissue - Hip Wound Culture - Preliminary Coag Negative Staph 05/02/21 Unknown Tissue - Hip Gram Stain - Final 05/02/21 Unknown Tissue - Hip Wound Culture - Preliminary No growth-Final to follow 05/02/21 Unknown Tissue - Hip Gram Stain - Final 04/20/21 10:07 Swab (Method) Nasal Screen MRSA/MSSA - Final Physical Exam Narrative Vital signs stable and afebrile. Patient is able to plantarflex and dorsiflex actively. Sensation is intact to light touch to saphenous, sural, superficial and deep peroneal, and tibial distribution. Dressing is clean dry and intact. Hemovac drain in place with serosanguineous drainage. 110 cc recorded Negative Homans bilaterally, negative signs and symptoms of DVT. Const alert, oriented x3 and no apparent distress Assessment & Plan Assessment/Plan (1) Status post right hip replacement: PLAN: 1. S/P revision right total hip arthroplasty with femoral and acetabular components POD #2 2. Continue Pain Medications: Tylenol and oxycodone 3. DVT Prophylaxis: Xarelto for 2 weeks postoperatively due to previous DVT. At 2 weeks postoperatively will switch over to aspirin 81 mg twice daily for an additional 2 weeks 4. PT/OT: Weightbearing as tolerated with walker. Strict posterior hip dislocation precautions for 3 months postoperatively 5. H & H: 8.0/25.0, asymptomatic. Insert anemia. Patient denies any dizziness or lightheadedness. We will continue to monitor. Will place order for repeat CBC tomorrow. 6. Encouraged Incentive Spirometry 7. Continue postoperative medical management per medicine 8. Postoperative Hemovac: Seroma was identified in surgery. Hemovac drain was placed. There is been 110 cc recorded for todays output. drain removed on rounds today. 9. Continue antibiotics postoperatively while following cultures: Cultures grew coag negative staph today. ID consult and recommendations for prolonged antibiotics. 10. Disposition: Plan will be for discharge to the transitional care unit possibly today pending availability of antibiotics and infectious disease c onsult. Case management has been involved and a bed is available. Patient will continue with physical therapy. We will continue to follow remainder cultures.
--- NOTE | 2021-05-04 14:32 | PCM.CONS.GEN ---
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 Sanchez, single surg cx now with CoNS, will treat as true infection. Will order picc and 6 weeks iv vanc, stop date 06/15/21, weekly labs. Will adjust abx at TCU as more susceptibility results come back. Has completed covid vaccine. Will follow, thank you, d/w director case management HPI Consult Data Date of Consult: 05/04/21 HPI Narrative HPI Narrative: ROBERT READ, is a 80 F with bilat hip replacements in 2017, presented with several months of progressive R hip pain and swelling. No fever, no chills. Had aspiration done in the spring. Xray showed some loosening. Taken to OR 05/02/[address] Sanchez for replacement. Surg cxs done, one now showing rare CoNS. Has completed covid vaccine. Full ROS performed and neg except as noted above. [facility] Medical History Alcohol use Arthritis Biliary colic Colitis Dementia DVT (deep venous thrombosis) Former smoker Gastric reflux GERD (gastroesophageal reflux disease) History of deep vein thrombosis History of edema History of pain when walking History of pulmonary edema Hyperlipidemia Injury of head and neck Osteoarthritis Pancreatitis Shortness of breath on exertion Wears glasses Home Medications aspirin 81 mg PO DAILY 07/18/17 [History Last Taken 05/01/21] ascorbic acid (vitamin C) 500 mg PO DAILY 10/29/17 [History Last Taken 05/01/21] cholecalciferol (vitamin D3) 1,000 unit PO DAILY 10/29/17 [History Last Taken 05/01/21] calcium carbonate 200 mg calcium (500 mg) chewable tablet 200 mg PO QPC PRN tab 05/24/20 [History Last Taken 05/01/21] vitamin B complex 1 tab PO DAILY 05/24/20 [History Last Taken 05/01/21] omeprazole 20 mg PO PRN PRN 05/29/20 [History Last Taken 05/01/21] acetaminophen 1,000 mg PO Q8 PRN 04/19/21 [History Last Taken 05/01/21] donepezil 5 mg PO QHS 04/19/21 [History Last Taken 05/01/21] acetaminophen 1,000 mg PO Q8 #90 tab 05/04/21 [Rx Last Taken Unknown] oxycodone 5 - 10 mg PO .q4-6h prn PRN 7 Days #56 tab 05/04/21 [Rx Last Taken Unknown] rivaroxaban [Xarelto] 10 mg PO DAILYCM 14 Days #14 tab 05/04/21 [Rx Last Taken Unknown] sennosides-docusate sodium [Stool Softener-Stimulant Laxat] 2 tab PO BID #10 tab 05/04/21 [Rx Last Taken Unknown] vancomycin 1 ea IV X1 PRN 42 Days #42 ea 05/04/21 [Rx Last Taken Unknown] Allergy/AdvReac Type Severity Reaction Status Date / Time Penicillins [PCN] Allergy Swelling Verified 04/19/21 09:09 Family History Mother CAD (coronary artery disease) Father CAD (coronary artery disease) Grandmother Breast cancer Arthritis Other Vitamin D deficiency Surgical History History of esophagogastroduodenoscopy (EGD) Hx of bilateral cataract extraction Hx of bilateral hip replacements Hx of colonoscopy Hx of hernia repair Social History Smoking Status: Former smoker Tobacco: How many years used: 10 how long ago did patient quit smokin alcohol intake: current alcohol intake frequency: 0-2 drinks per day Alcohol type: hard liquor substance use type: does not use Physical Exam Const alert and no apparent distress General Appearance: cooperative Exam Limitations: no limitations HEENT normocephalic and head/scalp atraumatic Eyes EOMs intact bilaterally Neck supple and No nodes Resp normal air movement and clear to auscultation bilaterally Cardio regular rate and regular rhythm GI normal to inspection, nondistended, normoactive bowel sounds Extremity no clubbing, cyanosis or edema Skin no rashes or lesions noted Skin Narrative: hip bandaged Neuro CN's II-XII intact bilaterally Lab / Micro Data Result Diagrams: 05/04/21 06:30 05/03/21 05:58 Labs: Laboratory Results - last 24 hr 05/04/21 06:30: WBC 5.6, RBC 2.97 L, Hgb 8.0 L, Hct 25.0 L, MCV 84.2, MCH 26.9 L, MCHC 32.0, RDW Std Deviation 43.7, RDW Coeff of Marian 14.3, Plt Count 178, MPV 10.0 Micro: Microbiology 05/04/21 09:34 Mucosa - Nasopharyngeal SARS-CoV-2 Antigen (Rapid) - Final 05/02/21 Unknown Tissue - Hip Gram Stain - Final 05/02/21 Unknown Tissue - Hip Wound Culture - Preliminary Coag Negative Staph 05/02/21 Unknown Tissue - Hip Gram Stain - Final 05/02/21 Unknown Tissue - Hip Wound Culture - Preliminary No growth-Final to follow
[2021-05-04 14:40] VITALS: BP 121/53; PULSE 89; RESP 16; TEMP 36.8; O2SAT 94
--- NOTE | 2021-05-04 16:18 | DCINST_ITS ---
Discharge Instructions Diet Discharge Diet: No restrictions Activity Discharge Activity: May Not Drive (while taking narcotic pain medications.) and - (strict posterior hip precautions for 3 months) May shower in (days): 1 (only if incision is dry and without drainage. Do NOT soak/submerge in tub/pool/lamb/stream/hot tub.) May resume sexual activity in: 6-8 weeks Ice area for (Minutes): 20 Weight Bearing Status: Weight bearing as tolerated Lifting Restrictions: no lifting Additional Activity Instructions:: Wear elastic stockings for 2 weeks. DO NOT use alcohol with narcotic pain medication. DO NOT make important decisions while taking narcotic medication. If you have problems with taking your medication (rash, itching, nausea, etc.) call the office at once. Dressing / Incision Call your doctor if your incision/area has: Increased Pain/ Swelling, Increased Redness and Foul Smelling Discharge Call your doctor if you observe: Fever of 101 or Higher Remove Dressing in: 3 days Additional Dressing/Incision Instructions:: Remove dressing on post op day 5 if incision clean and dry ok to leave open to air. Minimize use of tape on skin due to irritation. Follow Up Care Please Follow Up With: Farzad Wright PA-C When: In 2 weeks as previously scheduled Test Results: Test results from this visit will be discussed in further detail at your follow-up appointment, if applicable. Discharge Plan Admission Admit Date/Time: 05/02/21 09:09 Primary Reason for Your Visit: right failed ARMOND Attending Provider: Solange Greene Primary Care Provider: Joel Kumar Consulting Providers: Kathy Melgoza ; Kristi Hannon ; Adrian Logan ; Lukas Miller ; Ayo Wiseman Discharge Orders/Prescriptions Prescriptions: New acetaminophen 500 mg Tablet 1,000 mg PO Q8 Qty: 90 RF: 0 oxycodone 5 mg tablet 5 - 10 mg PO .q4-6h prn PRN (Reason: Pain Score 4-10) 7 Days Qty: 56 RF: 0 Xarelto 10 mg Tablet 10 mg PO DAILYCM 14 Days Qty: 14 RF: 0 sennosides-docusate sodium [Stool Softener-Stimulant Laxat] 8.6-50 mg Tablet 2 tab PO BID Qty: 10 RF: 0 vancomycin 1,000 mg Recon Soln 1 ea IV X1 PRN (Reason: Rx To Dose) 42 Days Qty: 42 RF: 0 Continued vitamin B complex [B Complex-Vitamin B12] Tablet 1 tab PO DAILY RF: 0 calcium carbonate [Tums] 200 mg calcium (500 mg) tablet,chewable 200 mg PO QPC PRN (Reason: GERD) RF: 0 ascorbic acid (vitamin C) 500 MG tablet 500 mg PO DAILY RF: 0 cholecalciferol (vitamin D3) 1,000 UNIT capsule 1,000 unit PO DAILY RF: 0 omeprazole 20 MG capsule 20 mg PO PRN PRN (Reason: GERD) RF: 0 donepezil 5 mg tablet 5 mg PO QHS RF: 0 acetaminophen 500 MG tablet 1,000 mg PO Q8 PRN (Reason: PRN) RF: 0 Held aspirin 81 MG tablet,delayed release (DR/EC) 81 mg PO DAILY RF: 0 Hold Instructions: Resume on 05/17/21. Referrals / Follow Up: Joel Kumar MD [Primary Care Provider] - Farzad Wright PA-C [PHYSICIAN CARE PROGRAM RESIDENT] - Disposition Disposition (needs filled in before D/C Order can be placed): Long Term Facility
--- NOTE | 2021-05-04 16:21 | CASEMGMT ---
Social Work Note Pt to discharge to TCU today. PREETHI placed a call to Delores with TCU earlier and updated her. PREETHI spoke with RN, pt's son Brett updated that pt will be discharged to TCU today. 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
[2021-05-04] MEDS: 0.9% Saline Lock 10 ML Syringe IV (18:34)
--- NOTE | 2021-05-04 19:55 | NURSING ---
building energy consultant unable to document PICC line placement. paper documentation on chart. PICC placed to LUE, 41cm in length with 2cm out from insertion point. placement was verified with their EKG and records were faxed and placed on paper chart. noted to have bleeding to insertion site and required gauze dressing. dressing will need changed tomorrow 05/05 and chg dressing applied.
--- NOTE | 2021-05-04 19:59 | NURSING ---
report called to Mary in TCU, pt transported via bed at this time
--- NOTE | 2021-05-04 20:11 | PCM.RX.CS ---
Consult Pharmacy has been consulted to manage selected antiobiotic: Vancomycin Type of Consult: New start Suspected Infection: Other Labs: Sodium 139 mmol/L (136-145) 05/03/21 05:58 Potassium 4.2 mmol/L (3.5-5.1) 05/03/21 05:58 Chloride 107 mmol/L (98-107) 05/03/21 05:58 Carbon Dioxide 27.0 mmol/L (21.0-32.0) 05/03/21 05:58 Anion Gap 5 (5-15) 05/03/21 05:58 BUN 13 mg/dL (7-18) 05/03/21 05:58 Creatinine 0.57 mg/dL (0.55-1.02) 05/03/21 05:58 Est GFR (MDRD) Af Amer 131 mL/min (>60) 05/03/21 05:58 Est GFR (MDRD) Non-Af 108 mL/min (>60) 05/03/21 05:58 BUN/Creatinine Ratio 22.8 RATIO (10-20) H 05/03/21 05:58 Glucose 111 mg/dL (74-106) H 05/03/21 05:58 Microbiology: Microbiology 05/04/21 09:34 Mucosa - Nasopharyngeal SARS-CoV-2 Antigen (Rapid) - Final 05/02/21 Unknown Tissue - Hip Gram Stain - Final 05/02/21 Unknown Tissue - Hip Wound Culture - Preliminary Coag Negative Staph 05/02/21 Unknown Tissue - Hip Gram Stain - Final 05/02/21 Unknown Tissue - Hip Wound Culture - Preliminary No growth-Final to follow 05/02/21 Unknown Tissue - Hip Gram Stain - Final 04/20/21 10:07 Swab (Method) Nasal Screen MRSA/MSSA - Final Pharmacy Plan for Drug Dosing: NEW START IV VANCOMYCIN Consulting Physician: Ivone Indication: Hip revision/Infection Goal Trough: 15-20 SrCr: 0.57 (05/03) CrCl: 45mls/min Comments: pt received a 1500mg loading dose 05/04/21 at 1831 Vancomcyin Dose: based on pts weight and renal function, recommend an initial dose of 500mg q12h starting 05/05 at 0630. trough before the 4th total dose Pending Level: 05/06/21 at 0600 Pharmacy Service will continue to monitor and adjust dosing as required. Follow-Up Labs: Trough Vancomycin - 05/06 @ 0600
== END 2021-05-04 20:16 | disposition skilled nursing facility (03) | DRG 468 ==
LOC: ACINP 09:12 → MS3 05-03 07:09
PROVIDERS: Anesthesiology; Physician Assistant Surgical; Admitting Provider Specialist; PCP Family Medicine; Referring Provider Specialist; Visit Provider Student in an Organized Health Care Education/Training Program
PROC: 0SRR03Z Replacement of Right Hip Joint, Femoral Surface with Ceramic Synthetic Substitute, Open Approach (ICD-10-PCS; CPT 27134; principal; 2021-05-02 11:20)
DX: T84.030A Mechanical loosening of internal right hip prosthetic joint, initial encounter (principal); T84.51XA Infection and inflammatory reaction due to internal right hip prosthesis, initial encounter; Y83.1 Surgical operation with implant of artificial internal device as the cause of abnormal reaction of the patient, or of later complication, without mention of misadventure at the time of the procedure; E78.5 Hyperlipidemia, unspecified; M19.90 Unspecified osteoarthritis, unspecified site; K21.9 Gastro-esophageal reflux disease without esophagitis; G30.9 Alzheimer's disease, unspecified; B95.7 Other staphylococcus as the cause of diseases classified elsewhere; F02.80 Dementia in other diseases classified elsewhere, unspecified severity, without behavioral disturbance, psychotic disturbance, mood disturbance, and anxiety; Z86.718 Personal history of other venous thrombosis and embolism; Z87.891 Personal history of nicotine dependence; Z79.82 Long term (current) use of aspirin; Z79.899 Other long term (current) drug therapy
CPT/HCPCS: 36415; 36569; 71046; 73502; 80048; 82040; 82962; 83735; 85025; 85027; 87015; 87070; 87075; 87077; 87081; 87102; 87116; 87176; 87186; 87205; 87206; 87426; 93005; 97110; 97162; 97166; 97530; 97535; 99251; C1776; J7040; J7120; A4216; G0463

== ENCOUNTER 2021-05-04 20:56 | Inpatient (IN) | payer MEDICARE, OTHER, SELFPAY ==
[2021-05-04 21:10] VITALS: BP 134/46; PULSE 81; RESP 16; TEMP 36.9; O2SAT 96
--- NOTE | 2021-05-04 21:56 | HP.PCM_ITS ---
HPI - General General Date of Admission: 05/04/21 HPI Narrative 05/02/2021 ROBERT READ, is a 80 Female who presents to [facility] with infection right prosthetic hip. 05/02/2021 Dr. Sanchez performed revision right total hip replacement femoral, acetabular components. 05/03/2021 PT/OT for debility. Xarelto 10MG daily daily for DVT prophylaxis thru 06/06/2021. 05/04/2021 Dr. Wiseman, surgical cultures growing coagulase negative staph, Vancomycin IV x 6 weeks via PICC line. 05/04/2021 Admit to TCU with debility, here for rehabilitation, strengthening, prior to discharge home with family. [facility] Medical History (Updated 05/04/21 @ 22:[address] Yobani Contreras MD) Alcohol use Arthritis Biliary colic Colitis Dementia DVT (deep venous thrombosis) Former smoker Gastric reflux GERD (gastroesophageal reflux disease) History of deep vein thrombosis History of edema History of pain when walking History of pulmonary edema History of revision of total replacement of right hip joint Hyperlipidemia Injury of head and neck Osteoarthritis Pancreatitis Shortness of breath on exertion Wears glasses Home Medications aspirin 81 mg PO DAILY 07/18/17 [History Last Taken 05/01/21] ascorbic acid (vitamin C) 500 mg PO DAILY 10/29/17 [History Last Taken 05/01/21] cholecalciferol (vitamin D3) 1,000 unit PO DAILY 10/29/17 [History Last Taken 05/01/21] calcium carbonate 200 mg calcium (500 mg) chewable tablet 200 mg PO QPC PRN tab 05/24/20 [History Last Taken 05/01/21] vitamin B complex 1 tab PO DAILY 05/24/20 [History Last Taken 05/01/21] omeprazole 20 mg PO PRN PRN 05/29/20 [History Last Taken 05/01/21] acetaminophen 1,000 mg PO Q8 04/19/21 [History Last Taken 05/01/21] donepezil 5 mg PO QHS 04/19/21 [History Last Taken 05/01/21] acetaminophen 1,000 mg PO Q8 PRN 05/04/21 [History Last Taken Unknown] oxycodone 5 - 10 mg PO .q4-6h prn PRN 7 Days #56 tab 05/04/21 [Rx Last Taken Unknown] rivaroxaban [Xarelto] 10 mg PO DAILYCM 05/04/21 [History Last Taken Unknown] sennosides-docusate sodium [Stool Softener-Stimulant Laxat] 2 tab PO BID 05/04/21 [History Last Taken Unknown] vancomycin 1 ea IV X1 PRN 42 Days #42 ea 05/04/21 [Rx Last Taken Unknown] Allergy/AdvReac Type Severity Reaction Status Date / Time Penicillins [PCN] Allergy Swelling Verified 04/19/21 09:09 Family History Mother CAD (coronary artery disease) Father CAD (coronary artery disease) Grandmother Breast cancer Arthritis Other Vitamin D deficiency Surgical History History of esophagogastroduodenoscopy (EGD) Hx of bilateral cataract extraction Hx of bilateral hip replacements Hx of colonoscopy Hx of hernia repair Social History Smoking Status: Former smoker Tobacco: How many years used: 10 how long ago did patient quit smokin alcohol intake: current alcohol intake frequency: 0-2 drinks per day Alcohol type: hard liquor substance use type: does not use ROS Constitutional Constitutional: Denies chills, fever(s) or weight gain ENT HEENT: Denies headache(s), nasal congestion or nasal discharge Cardiovascular Cardiovascular: Denies chest pain or palpitations Respiratory/Chest Respiratory/Chest: Denies cough, excessive phlegm production or shortness of breath with exertion Gastrointestinal Gastrointestinal: Denies abdominal pain, nausea or vomiting Genitourinary Genitourinary: Denies dysuria Musculoskeletal Musculoskeletal: Denies joint pain or joint swelling Integumentary Integumentary: Denies rash or wounds Neurologic Neurologic: Denies focal weakness, numbness or tingling Psychiatric Psychiatric: Reports auditory hallucinations; Denies anxiety, depression, homicidal ideation or suicidal ideation Physical Exam Const alert and oriented x3 General Appearance: cooperative HEENT normocephalic Eyes PERRL and EOMs intact bilaterally Neck supple, no JVD and no carotid bruits Resp normal respiratory effort, normal air movement and clear to auscultation bilaterally Cardio regular rate and regular rhythm GI normal to inspection, nondistended, normoactive bowel sounds, non-tender and non-distended Extremity normal capillary refill General Extremity: Negative for edema Skin no rashes or lesions noted General Skin Exam: no breakdown Psych affect normal Appearance: appropriate Assessment & Plan Assessment/Plan (1) Debility: (2) Prosthetic hip infection: (3) Vitamin D deficiency: (4) Alzheimer's disease: (5) GERD (gastroesophageal reflux disease): PLAN: 80 year old female with below past medical history significant for infected right prosthetic hip, underwent revision right total hip replacement 05/02/[address] 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 * Debility - PT/OT. * Pain - Tylenol 1000mg Q8, 1000mg Q8H PRN pain (1-3), Oxycodone 5mg Q4H PRN pain (4-10). * Bowel - Miralax 17gm daily, senna/colace 2 tablets twice daily, Dulcolax 10mg daily PRN. * Adult immunization - Administer prevnar 13, pneumovax 23, fluzone, covid19 vaccine as appropriate. * DVT prophylaxis - Xarelto 10mg daily thru 06/06/2021. * Vitamin C deficiency - Vitamin C 500mg daily. * CV prophylaxis - Aspirin 81mg daily to start 06/07/2021. * Indigestion - TUMS 500mg TID PRN. * Vitamin D deficiency - Vitamin D3 25mcg daily. * Alzheimer Disease - Donepezil 5mg QHS. * GERD - Pantoprazole 20mg daily. 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 Wiseman. * Vitamin B deficiency - Vitamin B complex 1 tablet daily.
[2021-05-04 22:00] VITALS: PULSE 83; RESP 16; O2SAT 96
[2021-05-04] MEDS: Senna/Docusate Sodium 1 Tablet 2 TABLET PO (23:14)
[2021-05-04] MEDS: Acetaminophen 500 MG Tablet 1000 MG PO (23:14)
[2021-05-04] MEDS: Donepezil HCl 5 MG Tablet PO (23:14)
[2021-05-05] MEDS: Senna/Docusate Sodium 1 Tablet 2 TABLET PO ×2 (05:28→17:39)
[2021-05-05] MEDS: Ascorbic Acid 500 MG Tablet PO (05:29)
[2021-05-05] MEDS: Acetaminophen 500 MG Tablet 1000 MG PO ×3 (05:29→21:17)
[2021-05-05] MEDS: Pantoprazole Sodium 20 MG Tablet PO (05:29)
[2021-05-05] MEDS: Polyethylene Glycol 3350 17 GM PACKET PO (05:29)
[2021-05-05] MEDS: Cholecalciferol (VIT D3) 25 MCG TABLET (1,000 UNITS) PO (05:30)
[2021-05-05] MEDS: Vancomycin IV 500 MG/100 ML BAG 100 MG IV ×2 (06:51→17:43)
[2021-05-05 07:49] LABS: Absolute Lymphocyte Count 1.15 X10^3/uL (0.83-4.51); Absolute Neutrophil Count 4.8 X10^3/uL (2.0-7.7); Basophil# 0.02 X10^3/uL; Basophil% 0.3 % (0-1); Eosinophil# 0.29 X10^3/uL; Eosinophils% 4.3 % (0-5); Hematocrit 25.7 % (37-47); Hemoglobin 7.9 g/dL (12.0-15.0); Lymphocyte # 1.15 X10^3/ul (0.83-4.51); Lymphocyte % 17.2 % (19-41); Mean Corp Hgb Conc 30.7 g/dL (32-36); Mean Corpuscular Hgb 26.4 pg (27.0-32.0); Mean Platelet Vol. 9.6 fl (6.2-12.0); Monocyte# 0.43 X10^3/uL; Monocyte% 6.4 % (0-10); NRBC Flagged by Analyzer 0 % (0-5); Neutrophil # 4.77 X10^3/uL (2.7-7.7); Neutrophil % 71.5 % (47-70); Platelet Count 196 K/mm3 (150-450); RBC Distribution Width CV 14.4 % (11.6-14.6); RBC Distribution Width SD 45.1 fl (35.1-43.9); Red Blood Count 2.99 M/mm3 (4.2-5.4); White Blood Count 6.7 K/mm3 (4.4-11.0)
[2021-05-05 08:10] LABS: Anion Gap 4 (5-15); BUN 16 mg/dL (7-18); Calcium,Total 8.4 mg/dL (8.5-10.1); Chloride 110 mmol/L (98-107); Creatinine, Serum 0.76 mg/dL (0.55-1.02); EST Glomerular Filtration Rate 77 mL/min (>60); Est Glom Filt Rate - Afr Amer 93 mL/min (>60); Glucose 105 mg/dL (74-106); Potassium 4.4 mmol/L (3.5-5.1); Sodium Level 141 mmol/L (136-145)
[2021-05-05] MEDS: Vitamin B Comp W-C Capsule 1 CAP PO (08:17)
[2021-05-05] MEDS: Rivaroxaban 10 MG Tablet PO (08:17)
[2021-05-05] MEDS: Tuberculin,Purif.prot.deriv. 50 TU/ML Vial 0.1 ML ID (11:25)
[2021-05-05 13:14] VITALS: BMI 29.7
[2021-05-05] MEDS: Iron Polysaccharide Complex 150 MG CAPSULE PO (13:16)
[2021-05-05] MEDS: oxyCODONE 5 MG Tablet PO ×3 (14:35→23:12)
[2021-05-05] MEDS: 0.9% Saline Lock 10 ML Syringe IV (17:41)
[2021-05-05 17:56] VITALS: BP 140/50; PULSE 77; RESP 18; TEMP 36.9; O2SAT 97
[2021-05-05 19:30] VITALS: PULSE 75; RESP 18; O2SAT 98
[2021-05-05] MEDS: Donepezil HCl 5 MG Tablet PO (21:18)
[2021-05-06] MEDS: Ascorbic Acid 500 MG Tablet PO (05:52)
[2021-05-06] MEDS: Cholecalciferol (VIT D3) 25 MCG TABLET (1,000 UNITS) PO (05:52)
[2021-05-06] MEDS: Polyethylene Glycol 3350 17 GM PACKET PO (05:52)
[2021-05-06] MEDS: Pantoprazole Sodium 20 MG Tablet PO (05:54)
[2021-05-06] MEDS: Senna/Docusate Sodium 1 Tablet 2 TABLET PO ×2 (05:54→17:45)
[2021-05-06] MEDS: Acetaminophen 500 MG Tablet 1000 MG PO ×4 (05:55→21:12)
[2021-05-06] MEDS: Vancomycin IV 500 MG/100 ML BAG 100 MG IV (05:56)
[2021-05-06] MEDS: oxyCODONE 5 MG Tablet PO ×2 (06:04→21:11)
[2021-05-06] MEDS: Vitamin B Comp W-C Capsule 1 CAP PO (08:12)
[2021-05-06] MEDS: Rivaroxaban 10 MG Tablet PO (08:12)
[2021-05-06] MEDS: Iron Polysaccharide Complex 150 MG CAPSULE PO (08:40)
--- NOTE | 2021-05-06 09:22 | PCM.RX.CS ---
Consult Pharmacy has been consulted to manage selected antiobiotic: Vancomycin Type of Consult: Follow-up Suspected Infection: Other - Hip revision/infection Prior Doses of Antibiotics Received/Current Regimen: Medications Vancomycin HCl 750 mg/ Sodium (Chloride) 265 mls @ 250 mls/hr IV Q12H REDDY to start 05/06/21 1830 Discontinued Medications Vancomycin HCl () 500 mg in 100 mls @ 100 mls/hr IV Q12H REDDY Last Admin: 05/06/21 05:56 Dose: 100 mls/hr Documented by: Labs: Sodium 141 mmol/L (136-145) 05/05/21 07:25 Potassium 4.4 mmol/L (3.5-5.1) 05/05/21 07:25 Chloride 110 mmol/L (98-107) H 05/05/21 07:25 Carbon Dioxide 27.0 mmol/L (21.0-32.0) 05/05/21 07:25 Anion Gap 4 (5-15) L 05/05/21 07:25 BUN 16 mg/dL (7-18) 05/05/21 07:25 Creatinine 0.76 mg/dL (0.55-1.02) 05/05/21 07:25 Est GFR (MDRD) Af Amer 93 mL/min (>60) 05/05/21 07:25 Est GFR (MDRD) Non-Af 77 mL/min (>60) 05/05/21 07:25 BUN/Creatinine Ratio 21.0 RATIO (10-20) H 05/05/21 07:25 Glucose 105 mg/dL (74-106) 05/05/21 07:25 Vancomycin Trough 11.0 ug/mL (5.0-15.0) 05/06/21 05:59 Weight used for dosin.4 kg Estimated Creatinine Clearance: 59ml/min Goal Trough: 15-20 mcg/mL Pharmacy Plan for Drug Dosing: The vancomycin trough came back at 11mg/L, below goal of 15-20. The dose will be increased to 750mg IV q12h. Pharmacy Service will continue to monitor and adjust dosing as required. Follow-Up Labs: Trough Vancomycin - draw before 4th dose Labs to be done on [date and time ordered]: 05/08/21 0600
[2021-05-06] MEDS: NYSTATIN 500,000 UNIT/5 ML UDC 500000 UNIT PO ×2 (17:45→21:11)
[2021-05-06] MEDS: 0.9% Saline Lock 10 ML Syringe IV (17:45)
[2021-05-06 18:43] VITALS: BP 128/58; PULSE 80; RESP 18; TEMP 36.3; O2SAT 93
[2021-05-06] MEDS: Donepezil HCl 5 MG Tablet PO (21:13)
[2021-05-07] MEDS: oxyCODONE 5 MG Tablet PO ×4 (01:21→22:17)
[2021-05-07] MEDS: 0.9% Saline Lock 10 ML Syringe IV ×4 (01:23→17:59)
[2021-05-07 05:39] LABS: Hematocrit 25.5 % (37-47); Hemoglobin 7.9 g/dL (12.0-15.0)
[2021-05-07] MEDS: Acetaminophen 500 MG Tablet 1000 MG PO ×3 (06:21→21:07)
[2021-05-07] MEDS: NYSTATIN 500,000 UNIT/5 ML UDC 500000 UNIT PO (06:21)
[2021-05-07] MEDS: Cholecalciferol (VIT D3) 25 MCG TABLET (1,000 UNITS) PO (06:22)
[2021-05-07] MEDS: Pantoprazole Sodium 20 MG Tablet PO (06:22)
[2021-05-07] MEDS: Ascorbic Acid 500 MG Tablet PO (06:22)
[2021-05-07] MEDS: Vitamin B Comp W-C Capsule 1 CAP PO (08:44)
[2021-05-07] MEDS: Iron Polysaccharide Complex 150 MG CAPSULE PO (08:44)
[2021-05-07] MEDS: Rivaroxaban 10 MG Tablet PO (08:44)
[2021-05-07 11:07] VITALS: BP 139/53; PULSE 80; RESP 18; TEMP 36.8; O2SAT 98
--- NOTE | 2021-05-07 14:46 | PCM.PN.RX ---
Progress Note - Pharmacy Subjective: TCU Admission Objective: Allergies Penicillins [PCN] Allergy (Verified 04/19/21 09:09) Swelling Current Medications Generic Name Dose Route Start Last Admin Trade Name Sharon PRN Reason Stop Dose Admin Acetaminophen 1,000 mg 05/04/21 22:00 05/07/21 14:31 Acetaminophen 500 Mg Tablet PO 1,000 mg Q8 REDDY Administration Acetaminophen 1,000 mg 05/04/21 22:25 05/06/21 10:28 Acetaminophen 500 Mg Tablet PO 1,000 mg Q8H PRN PRN Administration Pain Score 1-3 Ascorbic Acid 500 mg 05/05/21 06:00 05/07/21 06:22 Ascorbic Acid 500 Mg Tablet PO 500 mg DAILY REDDY Administration Aspirin 81 mg 06/07/21 08:00 Aspirin E.C. 81 Mg Tablet PO DAILYCM REDDY Bisacodyl 10 mg 05/04/21 22:24 Bisacodyl 5 Mg Tablet PO DAILY PRN Constipation Calcium Carbonate 500 mg 05/04/21 21:16 Calcium Carbonate 500 Mg Tablet PO TID PRN PRN GERD Cholecalciferol 25 mcg 05/05/21 06:00 05/07/21 06:22 Cholecalciferol (Vit D3) 25 Mcg Tablet (1,000 Units) PO 25 mcg DAILY REDDY Administration Donepezil HCl 5 mg 05/04/21 22:00 05/06/21 21:13 Donepezil Hcl 5 Mg Tablet PO 5 mg QHS REDDY Administration Heparin Sodium (Beef Lung) 50 units 05/05/21 00:23 Heparin Pf Lock 10 Units/Ml 50 Units/5 Ml Syringe IV UD PRN PICC Line Heparin Flush Sodium Chloride 250 mls @ 15 mls/hr 05/05/21 00:23 05/06/21 17:46 IV 15 mls/hr .[id number] PRN Administration Saline Flush Sodium Chloride 250 mls @ 15 mls/hr 05/05/21 00:23 IV .[id number] PRN Additional IVPB Infusion Vancomycin HCl 750 mg/ Sodium 265 mls @ 250 mls/hr 05/06/21 18:30 05/07/21 07:25 Chloride IV Infused Q12H REDDY Infusion Multivitamins 1 capsule 05/05/21 08:00 05/07/21 08:44 Vitamin B Comp W-C Capsule PO 1 capsule DAILYCM REDDY Administration Nystatin 500,000 unit 05/06/21 17:00 05/07/21 12:38 Nystatin 500,000 Unit/5 Ml Udc PO 05/16/21 17:01 Not Given 4X/DAY REDDY Oxycodone HCl 5 mg 05/04/21 22:25 05/07/21 10:51 Oxycodone 5 Mg Tablet PO 5 mg Q4H PRN PRN Administration Pain Score 4-10 Pantoprazole Sodium 20 mg 05/05/21 06:00 05/07/21 06:22 Pantoprazole Sodium 20 Mg Tablet PO 20 mg DAILY REDDY Administration Polyethylene Glycol 17 gm 05/05/21 06:00 05/07/21 06:23 Polyethylene Glycol 3350 17 Gm Packet PO Not Given DAILY REDDY Polysaccharide Iron Complex 150 mg 05/06/21 08:00 05/07/21 08:44 Iron Polysaccharide Complex 150 Mg Capsule PO 150 mg DAILYCM REDDY Administration Rivaroxaban 10 mg 05/05/21 08:00 05/07/21 08:44 Rivaroxaban 10 Mg Tablet PO 06/06/21 22:23 10 mg DAILYCM REDDY Administration Senna/Docusate Sodium 2 tablet 05/04/21 21:30 05/07/21 06:23 Senna/Docusate Sodium 1 Tablet PO Not Given BID REDDY Sodium Chloride 10 - 40 ml 05/05/21 00:23 05/07/21 08:37 0.9% Saline Lock 10 Ml Syringe IV 10 ml UD PRN Administration Open End PICC Flush Sodium Chloride 10 - 40 ml 05/05/21 00:23 0.9 % Nacl (Sterile) Posiflush 10 Ml IV UD PRN Port access or dressing change Tuberculin PPD 0.1 ml 05/12/21 10:00 Tuberculin,Purif.Prot.Deriv. 50 Tu/Ml Vial ID 05/12/21 10:01 X1 ONE Problem List (Last Updated 05/04/21 @ 22:[address] Yobani Contreras MD) Debility (Acute) Prosthetic hip infection (Acute) Vitamin D deficiency (Acute) Alzheimer's disease (Acute) GERD (gastroesophageal reflux disease) (Acute) Vital Signs Temp Pulse Resp BP Pulse Ox 98.3 F 80 18 139/53 H 98 05/07/21 11:07 05/07/21 11:07 05/07/21 11:07 05/07/21 11:07 05/07/21 11:07 Oxygen Delivery Method Room Air Weight: 66.82 kg Body Mass Index (BMI) 29.7 Sodium 141 mmol/L (136-145) 05/05/21 07:25 Potassium 4.4 mmol/L (3.5-5.1) 05/05/21 07:25 Chloride 110 mmol/L (98-107) H 05/05/21 07:25 Carbon Dioxide 27.0 mmol/L (21.0-32.0) 05/05/21 07:25 Anion Gap 4 (5-15) L 05/05/21 07:25 BUN 16 mg/dL (7-18) 05/05/21 07:25 Creatinine 0.76 mg/dL (0.55-1.02) 05/05/21 07:25 Est GFR (MDRD) Af Amer 93 mL/min (>60) 05/05/21 07:25 Est GFR (MDRD) Non-Af 77 mL/min (>60) 05/05/21 07:25 BUN/Creatinine Ratio 21.0 RATIO (10-20) H 05/05/21 07:25 Glucose 105 mg/dL (74-106) 05/05/21 07:25 Vancomycin Trough 11.0 ug/mL (5.0-15.0) 05/06/21 05:59 Assessment/Plan: 1. Pain: acetaminophen 1000mg PO Q8H/1000mg Q8H PRN pain 1-3 and oxycodone 5mg PO Q4H PRN pain 4-10. Please continue to monitor for increased pain, PRN usage, constipation and respiratory depression. *2. Infected right prosthetic hip s/p revision: vancomycin 750mg IV Q12H. Please continue to monitor cultures, renal function, diarrhea, and S/S of infection. Please consider adding a stop date. Thanks. 3. DVT prophylaxis/CV prophylaxis: rivaroxaban 10mg PO daily thru 06/06 then aspirin 81mg PO daily starting 06/07. Please continue to monitor for S/S of bleeding/DVT and hemoglobin (last 7.9g/dL). 4. Alzheimer disease: donepezil 5mg PO QHS. Please continue to monitor for S/S of Alzheimer disease and for GI side effects. 5. GERD: pantoprazole 20mg PO daily. Please continue to monitor for S/S of GERD and diarrhea. 6. Indigestion: calcium carbonate 500mg PO TID PRN GERD. Please continue to monitor calcium (last 8.4mg/dL) and S/S of GERD. 7. Iron deficiency (hemoglobin 7.9g/dL): Ferrex 150mg PO DAILYCM. Please continue to monitor hemoglobin, dark stools and constipation. 8. Vitamin deficiencies: ascorbic acid 500mg PO daily, cholecalciferol 25mcg PO daily and vitamin B complex 1C PO DAILYCM. Please continue to monitor vitamin D and vitamin B levels (last 04/06/21). Psychotropic Medications: None *Unnecessary Medications: nystatin oral solution 500,000units PO 4x/day thru 05/16/21. I did not see a documented indication for this medication. Please consider adding an indication. Thanks. Bowel Regimen: Miralax 17gm PO daily, senna/docusate 2T PO BID and bisacodyl 10mg PO daily PRN constipation. Please continue to monitor for constipation and PRN usage. Date of Note:: 05/07/21
--- NOTE | 2021-05-07 14:48 | PCM.PN.ID ---
Physical Exam Narrative Feeling ok, no fever, no n/v/d. 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 Sanchez, single surg cx now with MSSE and one with aerococcus viridans, will treat as true infection. Has picc for 6 weeks iv vanc, stop date 06/15/21, weekly labs. Reports h/o severe swelling with PCN, wishes to avoid that class, otherwise ceftriaxone could be an option. Has completed covid vaccine. Will follow
[2021-05-07 14:58] VITALS: BP 160/74; PULSE 88; RESP 16; TEMP 36.3; O2SAT 95
--- NOTE | 2021-05-07 19:12 | PCA ---
Patient did not wish to wash tonight. They changed into a clean gown and brushed teeth but will wash in the morning. Polar care was refilled and call light within reach.
[2021-05-07] MEDS: Donepezil HCl 5 MG Tablet PO (21:07)
--- NOTE | 2021-05-07 22:00 | NURSING ---
Pt refusing to wear polar care at night, states that she feels like it doesn't help that much and causes discomfort.
[2021-05-08] MEDS: Pantoprazole Sodium 20 MG Tablet PO (06:14)
[2021-05-08] MEDS: Cholecalciferol (VIT D3) 25 MCG TABLET (1,000 UNITS) PO (06:15)
[2021-05-08] MEDS: Acetaminophen 500 MG Tablet 1000 MG PO ×3 (06:15→21:08)
[2021-05-08] MEDS: oxyCODONE 5 MG Tablet PO ×3 (06:15→21:07)
[2021-05-08] MEDS: Ascorbic Acid 500 MG Tablet PO (06:15)
[2021-05-08] MEDS: 0.9% Saline Lock 10 ML Syringe IV ×2 (06:23→18:23)
[2021-05-08 06:25] LABS: Vancomycin, Trough Level 14.9 ug/mL (5.0-15.0)
[2021-05-08] MEDS: Rivaroxaban 10 MG Tablet PO (07:42)
[2021-05-08] MEDS: Vitamin B Comp W-C Capsule 1 CAP PO (07:42)
[2021-05-08] MEDS: Iron Polysaccharide Complex 150 MG CAPSULE PO (07:42)
--- NOTE | 2021-05-08 12:02 | CASEMGMT ---
Social Work Met with pt for initial assessment. SW discussed code status with pt and assisted in completing MOLST form. Pt wishes are DNRCCA with intubation. Nursing notified and MOLST communication to physician and placed in chart. SW explained Medicare benefit and encouraged pt to contact secondary insurance to ensure copay coverage. Pt lives in an independent living wood at [facility] and plans to return home alone at time of discharge. PT currently has IV ATB with stop date of 06/15/21. PREETHI to follow. RIKI Galvez
--- NOTE | 2021-05-08 14:24 | NURSING ---
Pt had CT completed on Right hip Faxed results to [facility].
[2021-05-08 14:26] VITALS: BP 141/66; PULSE 84; RESP 16; TEMP 36.4; O2SAT 95
--- NOTE | 2021-05-08 18:46 | NURSING ---
This nurse talked with pt about code status pt stated she wants everything done and wants to live. Verified pt code status of full Code.
[2021-05-08] MEDS: Donepezil HCl 5 MG Tablet PO (21:08)
[2021-05-09 05:50] LABS: Hematocrit 26.2 % (37-47)
[2021-05-09] MEDS: 0.9% Saline Lock 10 ML Syringe IV ×3 (06:31→18:08)
[2021-05-09] MEDS: Pantoprazole Sodium 20 MG Tablet PO (06:40)
[2021-05-09] MEDS: Ascorbic Acid 500 MG Tablet PO (06:40)
[2021-05-09] MEDS: Acetaminophen 500 MG Tablet 1000 MG PO ×3 (06:40→19:55)
[2021-05-09] MEDS: Polyethylene Glycol 3350 17 GM PACKET PO (06:40)
[2021-05-09] MEDS: Cholecalciferol (VIT D3) 25 MCG TABLET (1,000 UNITS) PO (06:40)
[2021-05-09] MEDS: Senna/Docusate Sodium 1 Tablet 2 TABLET PO ×2 (06:42→18:06)
[2021-05-09] MEDS: Iron Polysaccharide Complex 150 MG CAPSULE PO (08:09)
[2021-05-09] MEDS: Rivaroxaban 10 MG Tablet PO (08:09)
[2021-05-09] MEDS: Vitamin B Comp W-C Capsule 1 CAP PO (08:09)
--- NOTE | 2021-05-09 11:51 | CASEMGMT ---
Social Work Plan of care meeting held with pt present and pt son Brett on conference call. Pt is receiving PT/OT and progressing well with therapy. Pt is currently receiving IV ATB BID with a stop date of 06/15. Pt and son updated. SW explained that pt could remain in facility to obtain IV ATB. If pt chooses to return home prior to 06/15, IV ATB at home would be arranged but pt family would have to assist with administering them as Home Health nurse would not visit 2x a day. Son expresses understanding. No discharge date set at this time. Will continue with treatment plan in TCU. RIKI Galvez
[2021-05-09 16:28] VITALS: BP 152/64; PULSE 83; RESP 18; TEMP 36.2; O2SAT 96
[2021-05-09] MEDS: Donepezil HCl 5 MG Tablet PO (19:54)
[2021-05-09 21:26] VITALS: PULSE 85; RESP 12; O2SAT 98
[2021-05-10] MEDS: oxyCODONE 5 MG Tablet PO ×3 (03:27→20:16)
[2021-05-10] MEDS: Pantoprazole Sodium 20 MG Tablet PO (06:34)
[2021-05-10] MEDS: Cholecalciferol (VIT D3) 25 MCG TABLET (1,000 UNITS) PO (06:34)
[2021-05-10] MEDS: Ascorbic Acid 500 MG Tablet PO (06:34)
[2021-05-10] MEDS: Senna/Docusate Sodium 1 Tablet 2 TABLET PO (06:34)
[2021-05-10] MEDS: Acetaminophen 500 MG Tablet 1000 MG PO ×3 (06:34→20:16)
[2021-05-10] MEDS: Vitamin B Comp W-C Capsule 1 CAP PO (07:58)
[2021-05-10] MEDS: Rivaroxaban 10 MG Tablet PO (07:58)
[2021-05-10] MEDS: Iron Polysaccharide Complex 150 MG CAPSULE PO (07:58)
[2021-05-10 13:19] VITALS: BP 132/60; PULSE 76; RESP 14; TEMP 36.4; O2SAT 95
[2021-05-10 18:48] LABS: Vancomycin, Trough Level 15.2 ug/mL (5.0-15.0)
--- NOTE | 2021-05-10 19:53 | PCM.RX.CS ---
Consult Pharmacy has been consulted to manage selected antiobiotic: Vancomycin Type of Consult: Follow-up Suspected Infection: Other Prior Doses of Antibiotics Received/Current Regimen: Currently on 750mg iv q12h. Labs: Sodium 141 mmol/L (136-145) 05/05/21 07:25 Potassium 4.4 mmol/L (3.5-5.1) 05/05/21 07:25 Chloride 110 mmol/L (98-107) H 05/05/21 07:25 Carbon Dioxide 27.0 mmol/L (21.0-32.0) 05/05/21 07:25 Anion Gap 4 (5-15) L 05/05/21 07:25 BUN 16 mg/dL (7-18) 05/05/21 07:25 Creatinine 0.76 mg/dL (0.55-1.02) 05/05/21 07:25 Est GFR (MDRD) Af Amer 93 mL/min (>60) 05/05/21 07:25 Est GFR (MDRD) Non-Af 77 mL/min (>60) 05/05/21 07:25 BUN/Creatinine Ratio 21.0 RATIO (10-20) H 05/05/21 07:25 Glucose 105 mg/dL (74-106) 05/05/21 07:25 Vancomycin Trough 15.2 ug/mL (5.0-15.0) H 05/10/21 16:43 Weight used for dosin.3 kg Estimated Creatinine Clearance: ~59ml/min Goal Trough: 15-20 mcg/mL Pharmacy Plan for Drug Dosing: Trough today reported as 15.2. Will continue same dose regimen and get another trough level on 05.12.21. Pharmacy Service will continue to monitor and adjust dosing as required. Follow-Up Labs: Trough Vancomycin - 05.12.21@1800 before 1830 dose
[2021-05-10] MEDS: Donepezil HCl 5 MG Tablet PO (20:16)
[2021-05-10 21:18] VITALS: PULSE 79; RESP 14
[2021-05-11] MEDS: oxyCODONE 5 MG Tablet PO ×3 (01:52→18:35)
[2021-05-11] MEDS: Ascorbic Acid 500 MG Tablet PO (06:28)
[2021-05-11] MEDS: Pantoprazole Sodium 20 MG Tablet PO (06:28)
[2021-05-11] MEDS: Cholecalciferol (VIT D3) 25 MCG TABLET (1,000 UNITS) PO (06:28)
[2021-05-11] MEDS: Acetaminophen 500 MG Tablet 1000 MG PO ×3 (06:29→21:53)
[2021-05-11] MEDS: Vitamin B Comp W-C Capsule 1 CAP PO (07:59)
[2021-05-11] MEDS: Iron Polysaccharide Complex 150 MG CAPSULE PO (07:59)
[2021-05-11] MEDS: 0.9% Saline Lock 10 ML Syringe IV ×2 (08:34→18:32)
[2021-05-11] MEDS: Rivaroxaban 10 MG Tablet PO (08:34)
[2021-05-11 14:57] VITALS: BP 125/59; PULSE 89; RESP 16; TEMP 36.4; O2SAT 95
[2021-05-11 21:51] VITALS: RESP 14
[2021-05-11] MEDS: Donepezil HCl 5 MG Tablet PO (21:54)
[2021-05-12] MEDS: Acetaminophen 500 MG Tablet 1000 MG PO ×3 (06:23→20:57)
[2021-05-12] MEDS: Cholecalciferol (VIT D3) 25 MCG TABLET (1,000 UNITS) PO (06:24)
[2021-05-12] MEDS: Pantoprazole Sodium 20 MG Tablet PO (06:24)
[2021-05-12] MEDS: Ascorbic Acid 500 MG Tablet PO (06:24)
[2021-05-12] MEDS: Iron Polysaccharide Complex 150 MG CAPSULE PO (07:58)
[2021-05-12] MEDS: Vitamin B Comp W-C Capsule 1 CAP PO (07:58)
[2021-05-12 08:35] LABS: Absolute Lymphocyte Count 1.09 X10^3/uL (0.83-4.51); Absolute Neutrophil Count 4.6 X10^3/uL (2.0-7.7); Basophil# 0.05 X10^3/uL; Basophil% 0.8 % (0-1); Eosinophil# 0.25 X10^3/uL; Eosinophils% 3.9 % (0-5); Hematocrit 26.8 % (37-47); Hemoglobin 8.2 g/dL (12.0-15.0); Lymphocyte # 1.09 X10^3/ul (0.83-4.51); Lymphocyte % 17.1 % (19-41); Mean Corp Hgb Conc 30.6 g/dL (32-36); Mean Corpuscular Hgb 26.9 pg (27.0-32.0); Mean Corpuscular Volume 87.9 fL (81-99); Mean Platelet Vol. 9.3 fl (6.2-12.0); Monocyte# 0.36 X10^3/uL; Monocyte% 5.6 % (0-10); NRBC Flagged by Analyzer 0 % (0-5); Neutrophil # 4.57 X10^3/uL (2.7-7.7); Neutrophil % 71.5 % (47-70); Platelet Count 266 K/mm3 (150-450); RBC Distribution Width CV 14.7 % (11.6-14.6); RBC Distribution Width SD 46.8 fl (35.1-43.9); Red Blood Count 3.05 M/mm3 (4.2-5.4); White Blood Count 6.4 K/mm3 (4.4-11.0)
[2021-05-12 09:17] LABS: Anion Gap 7 (5-15); BUN 11 mg/dL (7-18); BUN/Creat Ratio 18.2 RATIO (10-20); Calcium,Total 8.6 mg/dL (8.5-10.1); Chloride 109 mmol/L (98-107); EST Glomerular Filtration Rate 101 mL/min (>60); Est Glom Filt Rate - Afr Amer 122 mL/min (>60); Estimated Creatinine Clearance 46.88 ml/min; Glucose 91 mg/dL (74-106); Potassium 3.9 mmol/L (3.5-5.1); Sodium Level 142 mmol/L (136-145)
[2021-05-12] MEDS: Rivaroxaban 10 MG Tablet PO (09:20)
[2021-05-12 09:30] VITALS: O2SAT 96
[2021-05-12 10:00] VITALS: PULSE 81; RESP 16; O2SAT 97
[2021-05-12 11:18] VITALS: BP 86/44; PULSE 78
[2021-05-12] MEDS: Tuberculin,Purif.prot.deriv. 50 TU/ML Vial 0.1 ML ID (11:28)
[2021-05-12 13:48] VITALS: BP 109/70; PULSE 83; RESP 17; TEMP 36.2; O2SAT 94
[2021-05-12] MEDS: oxyCODONE 5 MG Tablet PO (19:15)
[2021-05-12] MEDS: 0.9% Saline Lock 10 ML Syringe IV (19:16)
[2021-05-12] MEDS: Donepezil HCl 5 MG Tablet PO (20:57)
--- NOTE | 2021-05-13 03:00 | PCM.RX.CS ---
Consult Pharmacy has been consulted to manage selected antiobiotic: Vancomycin Type of Consult: Follow-up Labs: Sodium 142 mmol/L (136-145) 05/12/21 07:55 Potassium 3.9 mmol/L (3.5-5.1) 05/12/21 07:55 Chloride 109 mmol/L (98-107) H 05/12/21 07:55 Carbon Dioxide 26.0 mmol/L (21.0-32.0) 05/12/21 07:55 Anion Gap 7 (5-15) 05/12/21 07:55 BUN 11 mg/dL (7-18) 05/12/21 07:55 Creatinine 0.60 mg/dL (0.55-1.02) 05/12/21 07:55 Est GFR (MDRD) Af Amer 122 mL/min (>60) 05/12/21 07:55 Est GFR (MDRD) Non-Af 101 mL/min (>60) 05/12/21 07:55 BUN/Creatinine Ratio 18.2 RATIO (10-20) 05/12/21 07:55 Glucose 91 mg/dL (74-106) 05/12/21 07:55 Vancomycin Trough 16.0 ug/mL (5.0-15.0) H 05/12/21 18:00 Goal Trough: 15-20 mcg/mL Pharmacy Plan for Drug Dosing: Pharmacy Service will continue to monitor and adjust dosing as required. TROUGH 16.0 NO CHANGES FOLLOW UP TROUGH IN 4 DAYS Follow-Up Labs: Trough Vancomycin Labs to be done on [date and time ordered]: 05/16 @ 1800
[2021-05-13] MEDS: Pantoprazole Sodium 20 MG Tablet PO (06:13)
[2021-05-13] MEDS: Ascorbic Acid 500 MG Tablet PO (06:13)
[2021-05-13] MEDS: Cholecalciferol (VIT D3) 25 MCG TABLET (1,000 UNITS) PO (06:13)
[2021-05-13] MEDS: Senna/Docusate Sodium 1 Tablet 2 TABLET PO (06:13)
[2021-05-13] MEDS: Acetaminophen 500 MG Tablet 1000 MG PO ×3 (06:14→21:22)
[2021-05-13] MEDS: 0.9% Saline Lock 10 ML Syringe IV ×2 (08:05→18:42)
[2021-05-13] MEDS: Rivaroxaban 10 MG Tablet PO (08:08)
[2021-05-13] MEDS: Iron Polysaccharide Complex 150 MG CAPSULE PO (08:09)
[2021-05-13] MEDS: Vitamin B Comp W-C Capsule 1 CAP PO (08:09)
[2021-05-13 10:00] VITALS: PULSE 78; RESP 16; O2SAT 94
[2021-05-13 15:02] VITALS: BP 138/60; PULSE 73; RESP 14; TEMP 36.1; O2SAT 95
[2021-05-13] MEDS: Donepezil HCl 5 MG Tablet PO (21:22)
[2021-05-14 05:54] LABS: Hematocrit 25.2 % (37-47); Hemoglobin 7.9 g/dL (12.0-15.0)
[2021-05-14] MEDS: Acetaminophen 500 MG Tablet 1000 MG PO ×3 (07:04→21:53)
[2021-05-14] MEDS: Pantoprazole Sodium 20 MG Tablet PO (07:05)
[2021-05-14] MEDS: Ascorbic Acid 500 MG Tablet PO (07:05)
[2021-05-14] MEDS: Cholecalciferol (VIT D3) 25 MCG TABLET (1,000 UNITS) PO (07:05)
[2021-05-14] MEDS: Iron Polysaccharide Complex 150 MG CAPSULE PO (08:01)
[2021-05-14] MEDS: Vitamin B Comp W-C Capsule 1 CAP PO (08:01)
[2021-05-14] MEDS: oxyCODONE 5 MG Tablet PO (08:04)
[2021-05-14] MEDS: Rivaroxaban 10 MG Tablet PO (09:31)
[2021-05-14] MEDS: 0.9% Saline Lock 10 ML Syringe IV ×2 (09:31→17:53)
[2021-05-14 16:00] VITALS: BP 133/55; PULSE 74; RESP 16; TEMP 36.7; O2SAT 93
[2021-05-14 20:30] VITALS: PULSE 80; RESP 14; O2SAT 98
[2021-05-14] MEDS: Donepezil HCl 5 MG Tablet PO (21:54)
[2021-05-15] MEDS: Acetaminophen 500 MG Tablet 1000 MG PO ×3 (06:50→20:09)
[2021-05-15] MEDS: Ascorbic Acid 500 MG Tablet PO (06:51)
[2021-05-15] MEDS: Pantoprazole Sodium 20 MG Tablet PO (06:51)
[2021-05-15] MEDS: Cholecalciferol (VIT D3) 25 MCG TABLET (1,000 UNITS) PO (06:51)
[2021-05-15] MEDS: Vitamin B Comp W-C Capsule 1 CAP PO (08:45)
[2021-05-15] MEDS: Iron Polysaccharide Complex 150 MG CAPSULE PO (08:45)
[2021-05-15 10:00] VITALS: PULSE 78; RESP 18; O2SAT 99
[2021-05-15] MEDS: oxyCODONE 5 MG Tablet PO (10:15)
[2021-05-15] MEDS: Rivaroxaban 10 MG Tablet PO (10:26)
--- NOTE | 2021-05-15 13:03 | MDS.RN ---
Information for the mds was obtained from review of the clinical record, interview of resident, staff, and direct observation of resident's care.
--- NOTE | 2021-05-15 15:03 | NURSING ---
Resident and son, Brett, notified of COVID status on the unit.
--- NOTE | 2021-05-15 15:39 | CASEMGMT ---
Social Work Pt requesting to speak with PREETHI regarding discharge home. PREETHI explained that currently IV ATB are ordered twice a day untill 06/15/21. Pt options are to stay on TCU to receive infusions, go home and come to infusion center at hospital 2x day, ask a family member or friend to come to her home twice a day to assist with infusions. Home health can be ordered but will not visit daily. Pt inquiring is someone from [facility] could come to her home as she is living in their independent living and administer infusions. PREETHI placed call to [facility] and [facility] states this is not possible. Pt updated. Pt does not feel she can ask someone to come to her house twice a day. Pt to remain in TCU at this time. Miguelina LYN
[2021-05-15 16:34] VITALS: BP 135/62; PULSE 77; RESP 18; TEMP 37.1; O2SAT 97
[2021-05-15] MEDS: 0.9% Saline Lock 10 ML Syringe IV (18:12)
--- NOTE | 2021-05-15 19:51 | NURSING ---
Pt disconnected from IV s/p completion of Vancomycin. Flushed midline w/ 10 ml NS using push-pause method. Pt requests dressing change to rt hip completed as it has not been changed since this am and doesn't feel right. Two ABDs removed. Distal dressing w/ moderate amount of serous drainage. Kristy intact to hip incision. Incision well approximated. Small area if skin pink mid incision but without sxs infection. New ABDs x 2 applied and secured w/ hypoallergenic tape. Pt tolerated well.
[2021-05-15] MEDS: Donepezil HCl 5 MG Tablet PO (20:10)
[2021-05-16 05:58] LABS: Hematocrit 25.3 % (37-47); Hemoglobin 7.9 g/dL (12.0-15.0)
[2021-05-16] MEDS: 0.9% Saline Lock 10 ML Syringe IV ×2 (06:08→17:49)
[2021-05-16] MEDS: Cholecalciferol (VIT D3) 25 MCG TABLET (1,000 UNITS) PO (06:09)
[2021-05-16] MEDS: Acetaminophen 500 MG Tablet 1000 MG PO ×3 (06:09→21:00)
[2021-05-16] MEDS: Ascorbic Acid 500 MG Tablet PO (06:09)
[2021-05-16] MEDS: Pantoprazole Sodium 20 MG Tablet PO (06:09)
[2021-05-16] MEDS: Iron Polysaccharide Complex 150 MG CAPSULE PO (08:48)
[2021-05-16] MEDS: Vitamin B Comp W-C Capsule 1 CAP PO (08:48)
[2021-05-16] MEDS: Rivaroxaban 10 MG Tablet PO (08:48)
--- NOTE | 2021-05-16 12:16 | NURSING ---
Addendum entered by Ene Eldridge 05/16/21 12:29: EVERARDO WERE REMOVED AT APPT TODAY. DRY DRESSING IN PLACE. NO ACTIVE DRAINAGE. R' UPDATED ON NEXT APPT. Original Note: R' BACK FROM APPT WITH LISETTE SOLORZANO. F/U 06/20 AT 1315. ORDER STATES TO EVAL LEG LENGTHS WITH ADDITION OF SHOE LIFT ON THE LEFT SIDE IF NEEDED. NOTIFIED TRINH WEISS AT THIS TIME.
[2021-05-16] MEDS: oxyCODONE 5 MG Tablet PO (16:20)
[2021-05-16 17:32] VITALS: BP 180/72; PULSE 67; RESP 22; TEMP 36.3; O2SAT 95
[2021-05-16 17:54] VITALS: BP 138/74
[2021-05-16 18:51] LABS: Vancomycin, Trough Level 17.9 ug/mL (5.0-15.0)
[2021-05-16 19:30] VITALS: PULSE 95; RESP 16; O2SAT 95
[2021-05-16] MEDS: Donepezil HCl 5 MG Tablet PO (20:59)
--- NOTE | 2021-05-16 22:20 | PCM.RX.CS ---
Consult Pharmacy has been consulted to manage selected antiobiotic: Vancomycin Type of Consult: Follow-up Suspected Infection: Other Prior Doses of Antibiotics Received/Current Regimen: Medications Vancomycin HCl 750 mg/ Sodium (Chloride) 265 mls @ 250 mls/hr IV Q12H REDDY Last Admin: 05/16/21 17:48 Dose: 250 mls/hr Labs: Sodium 142 mmol/L (136-145) 05/12/21 07:55 Potassium 3.9 mmol/L (3.5-5.1) 05/12/21 07:55 Chloride 109 mmol/L (98-107) H 05/12/21 07:55 Carbon Dioxide 26.0 mmol/L (21.0-32.0) 05/12/21 07:55 Anion Gap 7 (5-15) 05/12/21 07:55 BUN 11 mg/dL (7-18) 05/12/21 07:55 Creatinine 0.60 mg/dL (0.55-1.02) 05/12/21 07:55 Est GFR (MDRD) Af Amer 122 mL/min (>60) 05/12/21 07:55 Est GFR (MDRD) Non-Af 101 mL/min (>60) 05/12/21 07:55 BUN/Creatinine Ratio 18.2 RATIO (10-20) 05/12/21 07:55 Glucose 91 mg/dL (74-106) 05/12/21 07:55 Vancomycin Trough 17.9 ug/mL (5.0-15.0) H 05/16/21 17:45 Weight used for dosin kg Estimated Creatinine Clearance: 47 Goal Trough: 15-20 mcg/mL Pharmacy Plan for Drug Dosing: Vancomycin trough level of 17.9 was within target range of 15-20. Will continue same dosing and re-draw a trough in 4 days. Pharmacy Service will continue to monitor and adjust dosing as required. Follow-Up Labs: Trough Vancomycin Labs to be done on [date and time ordered]: 05/20/21 @1800
[2021-05-17] MEDS: Ascorbic Acid 500 MG Tablet PO (06:45)
[2021-05-17] MEDS: Cholecalciferol (VIT D3) 25 MCG TABLET (1,000 UNITS) PO (06:45)
[2021-05-17] MEDS: Pantoprazole Sodium 20 MG Tablet PO (06:45)
[2021-05-17] MEDS: Acetaminophen 500 MG Tablet 1000 MG PO ×3 (06:46→21:00)
[2021-05-17] MEDS: Rivaroxaban 10 MG Tablet PO (08:59)
[2021-05-17] MEDS: Vitamin B Comp W-C Capsule 1 CAP PO (08:59)
[2021-05-17] MEDS: Iron Polysaccharide Complex 150 MG CAPSULE PO (09:00)
[2021-05-17] MEDS: Alteplase 2 MG/2 ML Vial IV (09:28)
[2021-05-17] MEDS: 0.9% Saline Lock 10 ML Syringe IV ×2 (09:28→18:02)
[2021-05-17 18:59] VITALS: PULSE 94; RESP 16; O2SAT 96
[2021-05-17 19:07] VITALS: BP 128/56; PULSE 94; RESP 16; TEMP 36.8; O2SAT 96
[2021-05-17] MEDS: oxyCODONE 5 MG Tablet PO (20:59)
[2021-05-17] MEDS: Donepezil HCl 5 MG Tablet PO (21:00)
[2021-05-18 04:45] LABS: Hematocrit 24.7 % (37-47); Hemoglobin 7.6 g/dL (12.0-15.0)
[2021-05-18] MEDS: Acetaminophen 500 MG Tablet 1000 MG PO ×3 (06:07→22:07)
[2021-05-18] MEDS: Cholecalciferol (VIT D3) 25 MCG TABLET (1,000 UNITS) PO (06:07)
[2021-05-18] MEDS: Pantoprazole Sodium 20 MG Tablet PO (06:07)
[2021-05-18] MEDS: Ascorbic Acid 500 MG Tablet PO (06:07)
[2021-05-18] MEDS: 0.9% Saline Lock 10 ML Syringe IV ×2 (06:14→18:03)
[2021-05-18 06:20] VITALS: BP 151/52; PULSE 75
[2021-05-18] MEDS: Iron Polysaccharide Complex 150 MG CAPSULE PO (08:00)
[2021-05-18] MEDS: Vitamin B Comp W-C Capsule 1 CAP PO (08:00)
[2021-05-18] MEDS: Rivaroxaban 10 MG Tablet PO (09:25)
--- NOTE | 2021-05-18 11:40 | NURSING ---
notified infusion center that pt will get blood on acute side tomorrow d/t pt needing B neg blood and shant in blood bank has to order another bag. So no blood tx today.
[2021-05-18 14:41] VITALS: BP 142/54; PULSE 82; RESP 17; TEMP 36.7; O2SAT 96
[2021-05-18] MEDS: oxyCODONE 5 MG Tablet PO (22:06)
[2021-05-18] MEDS: Donepezil HCl 5 MG Tablet PO (22:08)
[2021-05-19] MEDS: Cholecalciferol (VIT D3) 25 MCG TABLET (1,000 UNITS) PO (06:24)
[2021-05-19] MEDS: Acetaminophen 500 MG Tablet 1000 MG PO ×2 (06:24→20:46)
[2021-05-19] MEDS: Pantoprazole Sodium 20 MG Tablet PO (06:24)
[2021-05-19] MEDS: Ascorbic Acid 500 MG Tablet PO (06:25)
[2021-05-19] MEDS: 0.9% Saline Lock 10 ML Syringe IV ×2 (06:27→18:27)
[2021-05-19 06:34] VITALS: BP 141/82; PULSE 77
[2021-05-19] MEDS: Vitamin B Comp W-C Capsule 1 CAP PO (08:36)
[2021-05-19] MEDS: Rivaroxaban 10 MG Tablet PO (08:36)
[2021-05-19] MEDS: Iron Polysaccharide Complex 150 MG CAPSULE PO (08:36)
[2021-05-19 08:53] LABS: Absolute Lymphocyte Count 1.15 X10^3/uL (0.83-4.51); Absolute Neutrophil Count 3.4 X10^3/uL (2.0-7.7); Basophil# 0.04 X10^3/uL; Basophil% 0.8 % (0-1); Eosinophils% 5.6 % (0-5); Hematocrit 26.1 % (37-47); Lymphocyte # 1.15 X10^3/ul (0.83-4.51); Lymphocyte % 21.7 % (19-41); Mean Corp Hgb Conc 30.7 g/dL (32-36); Mean Corpuscular Hgb 25.9 pg (27.0-32.0); Mean Corpuscular Volume 84.5 fL (81-99); Mean Platelet Vol. 8.8 fl (6.2-12.0); Monocyte% 7.5 % (0-10); NRBC Flagged by Analyzer 0 % (0-5); Neutrophil # 3.41 X10^3/uL (2.7-7.7); Neutrophil % 64.2 % (47-70); Platelet Count 262 K/mm3 (150-450); RBC Distribution Width CV 14.9 % (11.6-14.6); RBC Distribution Width SD 45.3 fl (35.1-43.9); Red Blood Count 3.09 M/mm3 (4.2-5.4); White Blood Count 5.3 K/mm3 (4.4-11.0)
[2021-05-19 09:22] LABS: Anion Gap 5 (5-15); BUN 10 mg/dL (7-18); BUN/Creat Ratio 16.5 RATIO (10-20); Calcium,Total 8.9 mg/dL (8.5-10.1); Chloride 108 mmol/L (98-107); Creatinine, Serum 0.61 mg/dL (0.55-1.02); EST Glomerular Filtration Rate 101 mL/min (>60); Est Glom Filt Rate - Afr Amer 122 mL/min (>60); Estimated Creatinine Clearance 46.88 ml/min; Glucose 115 mg/dL (74-106); Potassium 3.8 mmol/L (3.5-5.1); Sodium Level 139 mmol/L (136-145)
[2021-05-19 10:00] VITALS: PULSE 70; RESP 16; O2SAT 97
[2021-05-19 16:00] VITALS: BP 131/64; PULSE 86; RESP 18; TEMP 37.1; O2SAT 96
[2021-05-19] MEDS: oxyCODONE 5 MG Tablet PO (20:45)
[2021-05-19] MEDS: Donepezil HCl 5 MG Tablet PO (20:46)
[2021-05-19 22:25] VITALS: BP 145/61; PULSE 68; RESP 16; O2SAT 95
--- NOTE | 2021-05-19 22:37 | NURSING ---
Called into pt's room, pt c/o of feeling woozy and like something came over me. States her chest felt tight for a moment, but now denies cp, shortness of breath, n/t to arms or legs, denies jaw pain. Lying in bed, skin warm and dry. Lungs CTA, HR reg, bs active x4. Pt states since she took her bedtime meds she has had a terrible dry mouth. Went over meds with pt, explained that she took the same meds she takes every night, nothing new was added. Incision assessed per request, does have edema around incision, drsg with moderate amount of serosanguineous drainage, Incision cleaned with alcohol pad and dry ABD pad applied. Pt calm at this time, states she feels better since I assessed her, will watch tv and go to sleep. Will continue to monitor.
[2021-05-20] MEDS: Pantoprazole Sodium 20 MG Tablet PO (06:07)
[2021-05-20] MEDS: Acetaminophen 500 MG Tablet 1000 MG PO ×3 (06:07→21:35)
[2021-05-20] MEDS: Ascorbic Acid 500 MG Tablet PO (06:07)
[2021-05-20] MEDS: Cholecalciferol (VIT D3) 25 MCG TABLET (1,000 UNITS) PO (06:07)
[2021-05-20] MEDS: 0.9% Saline Lock 10 ML Syringe IV ×2 (06:09→21:41)
[2021-05-20 07:58] LABS: Hematocrit 32.8 % (37-47); Hemoglobin 10.7 g/dL (12.0-15.0)
[2021-05-20] MEDS: Iron Polysaccharide Complex 150 MG CAPSULE PO (08:18)
[2021-05-20] MEDS: Vitamin B Comp W-C Capsule 1 CAP PO (08:18)
[2021-05-20] MEDS: Rivaroxaban 10 MG Tablet PO (08:23)
[2021-05-20 14:46] VITALS: BP 141/67; PULSE 69; RESP 16; TEMP 36.3; O2SAT 97
--- NOTE | 2021-05-20 19:45 | NURSING ---
Son, Brett, calls for an update on pt. he is listed as primary contact. Questions if pt is allowed to leave for sinner w/ him and pt's daughter who will be in town for a few days starting tomorrow. Informed Brett, this nurse is unsure if pt is able to leave for this type of gathering due to continued changes associated w/ COVID-19, TCU Recycler Forklift Driver Truck Driver most likely would need to approve, Clinical Director will need to be involved, and therapy will need to determine if pt can safely navigate in home w/ hip precautions. Updated son that pt has not consistently adhered to mobility restrictions s/p surgery. He also verbalizes concerns w/ IV atb as he acknowledges he and other family members are not able to maintain the IV. All questions answered during conversation.
--- NOTE | 2021-05-20 20:28 | NURSING ---
Addendum entered by Gladys Castle 05/20/21 21:47: Patient now let this Nurse hang her Vancomycin. Patient asked why it was not hooked up. Explained to patient, she refused after 3 times of me trying for 30 minutes to administer antibiotic. Addendum entered by Gladys Castle 05/20/21 21:46: Patient now let this Nurse hang her Vancomycin. Patient asked why it was not hooked up. Explained to patient, she refused after 3 times of me trying Original Note: Patient refusing Vancomycin at this time. Stating that she does't think she actually has Staph infection that it is from the metal. Educated patient that she did in fact have a Staph infection and was ordered Vancomycin x6 weeks. Patient demanding and stating shes not getting the answers she wants. Also states her right hip is now a lot taller than her left. This Nurse asked patient to put her left foot flat on the ground, as she was on her tiptoes. Patient refused and said she cannot since her right leg is so much taller. Patient claims that she thinks all this time in here shes had [place] poisoning and not Staph infection. Stated she received information from the [facility] that the previous hip has caused issues. Advised patient to contact [facility] and speak to whoever sent her the info. She states there was nothing wrong with her previous hip, so why did Dr. Sanchez even feel the need to replace it? Again, advised patient to call Dr. Sanchez's office and voice her concern.
--- NOTE | 2021-05-20 20:36 | NURSING ---
Patient refusing to let nurse do her daily assessment at this time.
[2021-05-20 21:21] VITALS: PULSE 66; RESP 16; O2SAT 97
[2021-05-20] MEDS: Donepezil HCl 5 MG Tablet PO (21:35)
--- NOTE | 2021-05-20 21:44 | NURSING ---
Patient requesting for Aricept to be discontinued. Patient stated, I only seen that doctor once and he prescribed it for dementia and I don't have it. After A few minutes patient then stated, It doesn't help with the ringing in my ears anyway. Note left for Dr. Contreras.
[2021-05-20 22:50] LABS: Vancomycin, Trough Level 17.6 ug/mL (5.0-15.0)
--- NOTE | 2021-05-20 23:05 | PCM.RX.CS ---
Consult Pharmacy has been consulted to manage selected antiobiotic: Vancomycin Type of Consult: Follow-up Suspected Infection: Other Prior Doses of Antibiotics Received/Current Regimen: Medications Vancomycin HCl 750 mg/ Sodium (Chloride) 265 mls @ 250 mls/hr IV Q12H REDDY Last Admin: 05/20/21 21:51 Dose: 250 mls/hr Labs: Sodium 139 mmol/L (136-145) 05/19/21 08:18 Potassium 3.8 mmol/L (3.5-5.1) 05/19/21 08:18 Chloride 108 mmol/L (98-107) H 05/19/21 08:18 Carbon Dioxide 26.0 mmol/L (21.0-32.0) 05/19/21 08:18 Anion Gap 5 (5-15) 05/19/21 08:18 BUN 10 mg/dL (7-18) 05/19/21 08:18 Creatinine 0.61 mg/dL (0.55-1.02) 05/19/21 08:18 Est GFR (MDRD) Af Amer 122 mL/min (>60) 05/19/21 08:18 Est GFR (MDRD) Non-Af 101 mL/min (>60) 05/19/21 08:18 BUN/Creatinine Ratio 16.5 RATIO (10-20) 05/19/21 08:18 Glucose 115 mg/dL (74-106) H 05/19/21 08:18 Vancomycin Trough 17.6 ug/mL (5.0-15.0) H 05/20/21 19:31 Weight used for dosin.3 kg Estimated Creatinine Clearance: 47 Goal Trough: 15-20 mcg/mL Pharmacy Plan for Drug Dosing: Vancomycin levels are holding consistent within target range of 15-20. Tonight's level was 17.6. Will continue same dosing and re-check trough in 4 days. Pharmacy Service will continue to monitor and adjust dosing as required. Follow-Up Labs: Trough Vancomycin Labs to be done on [date and time ordered]: 05/24/21 @1800
[2021-05-21] MEDS: Ascorbic Acid 500 MG Tablet PO (06:33)
[2021-05-21] MEDS: Cholecalciferol (VIT D3) 25 MCG TABLET (1,000 UNITS) PO (06:33)
[2021-05-21] MEDS: Pantoprazole Sodium 20 MG Tablet PO (06:33)
[2021-05-21] MEDS: Acetaminophen 500 MG Tablet 1000 MG PO ×3 (06:33→21:25)
[2021-05-21 06:36] VITALS: BP 150/69; PULSE 70
[2021-05-21] MEDS: 0.9% Saline Lock 10 ML Syringe IV ×2 (06:51→18:50)
[2021-05-21] MEDS: Rivaroxaban 10 MG Tablet PO (08:05)
[2021-05-21] MEDS: Iron Polysaccharide Complex 150 MG CAPSULE PO (08:06)
[2021-05-21] MEDS: Vitamin B Comp W-C Capsule 1 CAP PO (08:06)
[2021-05-21 09:56] VITALS: PULSE 82; RESP 14
[2021-05-21 15:08] VITALS: BP 150/62; PULSE 73; RESP 16; TEMP 36.4; O2SAT 95
--- NOTE | 2021-05-21 21:27 | NURSING ---
Pt refusing to take aricept vaishali, states some Dr. I saw only once prescribed that to me, and my son thought it was a good idea, I don't need it, I don't have dementia.
--- NOTE | 2021-05-22 04:44 | NURSING ---
Left vm for social work to contact pt's son and POA, Brett, regarding pt's desire to have Aricept dc'ed, her concerns w/ Galliano positioning in regard to her hip prosthesis, and Brett's request to take pt off the unit for a couple of hours to his home for a meal with their family, including her daughter that will be in town for 3 days,
[2021-05-22 07:08] VITALS: BP 163/60; PULSE 66
[2021-05-22] MEDS: Ascorbic Acid 500 MG Tablet PO (07:11)
[2021-05-22] MEDS: Cholecalciferol (VIT D3) 25 MCG TABLET (1,000 UNITS) PO (07:11)
[2021-05-22] MEDS: Acetaminophen 500 MG Tablet 1000 MG PO ×3 (07:11→21:18)
[2021-05-22] MEDS: Pantoprazole Sodium 20 MG Tablet PO (07:11)
[2021-05-22] MEDS: 0.9% Saline Lock 10 ML Syringe IV ×2 (07:12→18:31)
[2021-05-22] MEDS: Vitamin B Comp W-C Capsule 1 CAP PO (08:17)
[2021-05-22] MEDS: Iron Polysaccharide Complex 150 MG CAPSULE PO (08:57)
[2021-05-22] MEDS: Rivaroxaban 10 MG Tablet PO (08:57)
--- NOTE | 2021-05-22 15:58 | NURSING ---
spoke with son & daughter regarding pt started refusing aricept. Son stated pt was started on that by Dr Bee and dose is to be increased to 10mg now since it has been [address] Bee office to verify and yes pt to have dose increased. will update Dr Contreras. daughter took pt outside to visit and discuss the importance of pt taking her medication for memory. This nurse has noticed many times since admission that pt is very forgetful and has repeated her questions daily. for example, why am I taking a blood thinner? explained daily and pt continues to ask same questions about meds daily.
[2021-05-22 16:08] VITALS: BP 167/78; PULSE 74; RESP 16; TEMP 36.3; O2SAT 95
[2021-05-22] MEDS: Donepezil HCl 10 MG Tablet PO (21:19)
[2021-05-22 23:20] VITALS: PULSE 72; RESP 14; O2SAT 98
[2021-05-23] MEDS: 0.9% Saline Lock 10 ML Syringe IV ×2 (05:55→18:08)
[2021-05-23] MEDS: Cholecalciferol (VIT D3) 25 MCG TABLET (1,000 UNITS) PO (06:00)
[2021-05-23] MEDS: Acetaminophen 500 MG Tablet 1000 MG PO ×3 (06:00→21:22)
[2021-05-23] MEDS: Ascorbic Acid 500 MG Tablet PO (06:00)
[2021-05-23] MEDS: Pantoprazole Sodium 20 MG Tablet PO (06:01)
[2021-05-23] MEDS: Rivaroxaban 10 MG Tablet PO (08:11)
[2021-05-23] MEDS: Vitamin B Comp W-C Capsule 1 CAP PO (08:11)
[2021-05-23] MEDS: Iron Polysaccharide Complex 150 MG CAPSULE PO (08:11)
[2021-05-23 16:46] VITALS: BP 152/71; PULSE 81; RESP 16; TEMP 36.3; O2SAT 93
[2021-05-23] MEDS: Donepezil HCl 10 MG Tablet PO (21:22)
[2021-05-24] MEDS: Cholecalciferol (VIT D3) 25 MCG TABLET (1,000 UNITS) PO (06:50)
[2021-05-24] MEDS: Ascorbic Acid 500 MG Tablet PO (06:51)
[2021-05-24] MEDS: Acetaminophen 500 MG Tablet 1000 MG PO ×3 (06:51→22:12)
[2021-05-24] MEDS: Pantoprazole Sodium 20 MG Tablet PO (06:51)
[2021-05-24] MEDS: Iron Polysaccharide Complex 150 MG CAPSULE PO (08:08)
[2021-05-24] MEDS: Vitamin B Comp W-C Capsule 1 CAP PO (08:08)
[2021-05-24] MEDS: Rivaroxaban 10 MG Tablet PO (08:08)
[2021-05-24] MEDS: Alteplase 2 MG/2 ML Vial IV (09:20)
--- NOTE | 2021-05-24 10:00 | NURSING ---
Pt's Picc flushing but no blood returned noted. Dr. Contreras updated new order for Cath Con. Cath Con administered left in Picc Line for 30min. Blood return noted and withdrew 5ml of Blood and discarded. Vancomycin hung and Pharmacy updated on time.
[2021-05-24 13:48] VITALS: BP 145/70; PULSE 80; RESP 19; TEMP 36.1; O2SAT 96
--- NOTE | 2021-05-24 18:37 | NURSING ---
THIS NURSE SEEN PT GET ON ELEVATOR,THEN ASKED AND CHECKED TO SEEN IF THERE WAS A SIGN OUT. NOTHING, THIS NURSE RAN DOWN STAIRS AND CAUGHT PT WITH VISITOR,ASKED IF THEY SIGNED OUT AND WHERE THEY WERE GOING. VISITOR STATED SHE WAS LEAVING AND THEN PT WAS GOING TO WALK BACK TO ROOM. THIS NURSE STATED TO VISITOR THAT PT CAN NOT LEAVE FLOOR AND WALK BACK ON OWN,SHE IS ONLY A LOUD TO BE AB ROBBI ON TCU FLOOR. VISITOR STATED SORRY AND DIDNT KNOW THAT. THIS NURSE EXPLAINED TO PT ALSO THAT SEE COULD NOT LEAVE FLOOR. PT STATED SHE DIDNT KNOW THAT. THIS NURSE TOOK PT BACK UP TO TCU AND THEN ROOM. RN AWARE.
[2021-05-24 19:05] LABS: Vancomycin, Trough Level 19.8 ug/mL (5.0-15.0)
--- NOTE | 2021-05-24 19:16 | PCM.RX.CS ---
Consult Pharmacy has been consulted to manage selected antiobiotic: Vancomycin Type of Consult: Follow-up Suspected Infection: Other Prior Doses of Antibiotics Received/Current Regimen: Currently on 750mg iv q12h. Labs: Sodium 139 mmol/L (136-145) 05/19/21 08:18 Potassium 3.8 mmol/L (3.5-5.1) 05/19/21 08:18 Chloride 108 mmol/L (98-107) H 05/19/21 08:18 Carbon Dioxide 26.0 mmol/L (21.0-32.0) 05/19/21 08:18 Anion Gap 5 (5-15) 05/19/21 08:18 BUN 10 mg/dL (7-18) 05/19/21 08:18 Creatinine 0.61 mg/dL (0.55-1.02) 05/19/21 08:18 Est GFR (MDRD) Af Amer 122 mL/min (>60) 05/19/21 08:18 Est GFR (MDRD) Non-Af 101 mL/min (>60) 05/19/21 08:18 BUN/Creatinine Ratio 16.5 RATIO (10-20) 05/19/21 08:18 Glucose 115 mg/dL (74-106) H 05/19/21 08:18 Vancomycin Trough 19.8 ug/mL (5.0-15.0) H 05/24/21 18:00 Weight used for dosin.4 kg Estimated Creatinine Clearance: ~47 ml/min Goal Trough: 15-20 mcg/mL Pharmacy Plan for Drug Dosing: Trough level today 19.8 and within goal range of 15-20mcg/ml. Will continue same regimen and get another trough level in 2 days. Pharmacy Service will continue to monitor and adjust dosing as required.
[2021-05-24 20:30] VITALS: PULSE 76; RESP 16; O2SAT 96
[2021-05-24] MEDS: 0.9% Saline Lock 10 ML Syringe IV (22:11)
[2021-05-24] MEDS: Donepezil HCl 10 MG Tablet PO (22:13)
[2021-05-25] MEDS: Pantoprazole Sodium 20 MG Tablet PO (05:04)
[2021-05-25] MEDS: Ascorbic Acid 500 MG Tablet PO (05:04)
[2021-05-25] MEDS: Acetaminophen 500 MG Tablet 1000 MG PO ×4 (05:04→22:11)
[2021-05-25] MEDS: Cholecalciferol (VIT D3) 25 MCG TABLET (1,000 UNITS) PO (05:05)
[2021-05-25] MEDS: Vitamin B Comp W-C Capsule 1 CAP PO (09:08)
[2021-05-25] MEDS: Iron Polysaccharide Complex 150 MG CAPSULE PO (09:08)
[2021-05-25] MEDS: Rivaroxaban 10 MG Tablet PO (09:08)
[2021-05-25 10:00] VITALS: PULSE 75; RESP 18; O2SAT 97
[2021-05-25] MEDS: 0.9% Saline Lock 10 ML Syringe IV ×2 (11:27→22:07)
[2021-05-25 12:49] VITALS: BP 144/68; PULSE 74; RESP 18; TEMP 36.1; O2SAT 96
[2021-05-25] MEDS: Donepezil HCl 10 MG Tablet PO (22:11)
[2021-05-26] MEDS: Acetaminophen 500 MG Tablet 1000 MG PO ×3 (05:57→21:13)
[2021-05-26] MEDS: Cholecalciferol (VIT D3) 25 MCG TABLET (1,000 UNITS) PO (05:57)
[2021-05-26] MEDS: Pantoprazole Sodium 20 MG Tablet PO (05:57)
[2021-05-26] MEDS: Ascorbic Acid 500 MG Tablet PO (05:57)
[2021-05-26] MEDS: Iron Polysaccharide Complex 150 MG CAPSULE PO (08:13)
[2021-05-26] MEDS: Rivaroxaban 10 MG Tablet PO (08:13)
[2021-05-26 08:36] LABS: Absolute Lymphocyte Count 1.06 X10^3/uL (0.83-4.51); Absolute Neutrophil Count 3.1 X10^3/uL (2.0-7.7); Basophil# 0.05 X10^3/uL; Eosinophil# 0.41 X10^3/uL; Eosinophils% 8.2 % (0-5); Hematocrit 35.9 % (37-47); Hemoglobin 11.3 g/dL (12.0-15.0); Lymphocyte # 1.06 X10^3/ul (0.83-4.51); Lymphocyte % 21.3 % (19-41); Mean Corp Hgb Conc 31.5 g/dL (32-36); Mean Corpuscular Hgb 26.8 pg (27.0-32.0); Mean Corpuscular Volume 85.1 fL (81-99); Mean Platelet Vol. 9.2 fl (6.2-12.0); Monocyte# 0.36 X10^3/uL; Monocyte% 7.2 % (0-10); NRBC Flagged by Analyzer 0 % (0-5); Neutrophil # 3.08 X10^3/uL (2.7-7.7); Neutrophil % 62.1 % (47-70); Platelet Count 220 K/mm3 (150-450); RBC Distribution Width CV 14.7 % (11.6-14.6); RBC Distribution Width SD 45.6 fl (35.1-43.9); Red Blood Count 4.22 M/mm3 (4.2-5.4)
[2021-05-26 09:00] LABS: Anion Gap 7 (5-15); BUN 13 mg/dL (7-18); BUN/Creat Ratio 15.8 RATIO (10-20); Calcium,Total 8.9 mg/dL (8.5-10.1); Chloride 108 mmol/L (98-107); Creatinine, Serum 0.82 mg/dL (0.55-1.02); EST Glomerular Filtration Rate 71 mL/min (>60); Est Glom Filt Rate - Afr Amer 85 mL/min (>60); Estimated Creatinine Clearance 57.22 ml/min; Glucose 125 mg/dL (74-106); Sodium Level 140 mmol/L (136-145)
[2021-05-26] MEDS: Vitamin B Comp W-C Capsule 1 CAP PO (09:14)
--- NOTE | 2021-05-26 09:22 | NURSING ---
updated pt on labs this am per her request.
[2021-05-26] MEDS: 0.9% Saline Lock 10 ML Syringe IV (10:00)
[2021-05-26 16:00] VITALS: BP 157/72; PULSE 69; RESP 17; TEMP 37.2; O2SAT 95
[2021-05-26] MEDS: Donepezil HCl 10 MG Tablet PO (21:14)
[2021-05-26 22:30] LABS: Vancomycin, Trough Level 18.5 ug/mL (5.0-15.0)
--- NOTE | 2021-05-27 01:56 | PCM.RX.CS ---
Consult Pharmacy has been consulted to manage selected antiobiotic: Vancomycin Type of Consult: Follow-up Labs: Sodium 140 mmol/L (136-145) 05/26/21 08:10 Potassium 4.0 mmol/L (3.5-5.1) 05/26/21 08:10 Chloride 108 mmol/L (98-107) H 05/26/21 08:10 Carbon Dioxide 25.0 mmol/L (21.0-32.0) 05/26/21 08:10 Anion Gap 7 (5-15) 05/26/21 08:10 BUN 13 mg/dL (7-18) 05/26/21 08:10 Creatinine 0.82 mg/dL (0.55-1.02) 05/26/21 08:10 Est GFR (MDRD) Af Amer 85 mL/min (>60) 05/26/21 08:10 Est GFR (MDRD) Non-Af 71 mL/min (>60) 05/26/21 08:10 BUN/Creatinine Ratio 15.8 RATIO (10-20) 05/26/21 08:10 Glucose 125 mg/dL (74-106) H 05/26/21 08:10 Vancomycin Trough 18.5 ug/mL (5.0-15.0) H 05/26/21 21:30 Goal Trough: 15-20 mcg/mL Pharmacy Plan for Drug Dosing: Pharmacy Service will continue to monitor and adjust dosing as required. TROUGH 18.5 11.5 HRS. SCr INCREASED TO 0.82 FROM 0.61. NO CHANGES NOW, RECHECK TROUGH IN 2 DAYS PER INCREASED SCr Follow-Up Labs: Trough Vancomycin Labs to be done on [date and time ordered]: 05/28 @ 4674
[2021-05-27 06:13] VITALS: BP 150/66; PULSE 69
[2021-05-27] MEDS: Ascorbic Acid 500 MG Tablet PO (06:14)
[2021-05-27] MEDS: Acetaminophen 500 MG Tablet 1000 MG PO ×3 (06:14→20:59)
[2021-05-27] MEDS: Cholecalciferol (VIT D3) 25 MCG TABLET (1,000 UNITS) PO (06:14)
[2021-05-27] MEDS: Pantoprazole Sodium 20 MG Tablet PO (06:14)
[2021-05-27] MEDS: Iron Polysaccharide Complex 150 MG CAPSULE PO (08:44)
[2021-05-27] MEDS: Rivaroxaban 10 MG Tablet PO (08:44)
[2021-05-27] MEDS: Vitamin B Comp W-C Capsule 1 CAP PO (08:44)
[2021-05-27] MEDS: 0.9% Saline Lock 10 ML Syringe IV (09:42)
[2021-05-27 09:45] VITALS: PULSE 83; RESP 16; O2SAT 96
[2021-05-27 14:17] VITALS: BP 138/66; PULSE 79; RESP 18; TEMP 36.1; O2SAT 95
[2021-05-27] MEDS: Donepezil HCl 10 MG Tablet PO (20:59)
[2021-05-28] MEDS: Pantoprazole Sodium 20 MG Tablet PO ×2 (05:21)
[2021-05-28] MEDS: Acetaminophen 500 MG Tablet 1000 MG PO ×3 (05:21→21:10)
[2021-05-28] MEDS: Ascorbic Acid 500 MG Tablet PO (05:21)
[2021-05-28] MEDS: Cholecalciferol (VIT D3) 25 MCG TABLET (1,000 UNITS) PO (05:21)
[2021-05-28] MEDS: Rivaroxaban 10 MG Tablet PO (08:48)
[2021-05-28] MEDS: Vitamin B Comp W-C Capsule 1 CAP PO (08:48)
[2021-05-28] MEDS: Iron Polysaccharide Complex 150 MG CAPSULE PO (08:48)
[2021-05-28] MEDS: 0.9% Saline Lock 10 ML Syringe IV ×2 (10:18→21:22)
[2021-05-28 15:08] VITALS: BP 160/68; PULSE 83; RESP 16; TEMP 36.3; O2SAT 98
--- NOTE | 2021-05-28 19:24 | PN.TCU_ITS ---
Subjective Subjective Resident seen, examined for regulatory visit. She has no new problems, concerns, issues, complaints. She had postoperative anemia which responded well to 2 unit PRBC transfusion. She repetitively asks about what her old and new prosthetic is made of, I directed her questions to Dr. Sanchez, and staff. Objective Data Objective Data Vital Signs: Vital Signs Temp Pulse Resp BP Pulse Ox 97.3 F L 83 16 160/68 H 98 05/28/21 15:08 05/28/21 15:08 05/28/21 15:08 05/28/21 15:08 05/28/21 15:08 Oxygen Delivery Method Room Air Weight: 67.358 kg Body Mass Index (BMI) 29.7 Intake & Output: Intake and Output for Last 24 Hours 05/26/21 05/27/21 05/28/21 23:59 23:59 23:59 Intake Total 1635 / 1635 985 / 985 770 / 770 Balance 1635 / 1635 985 / 985 770 / 770 Lab / Micro Data Result Diagrams: 05/26/21 08:10 05/26/21 08:10 Physical Exam Const alert and oriented x3 General Appearance: cooperative HEENT normocephalic Eyes PERRL and EOMs intact bilaterally Neck supple, no JVD and no carotid bruits Resp normal respiratory effort, normal air movement and clear to auscultation bilaterally Cardio regular rate and regular rhythm GI normal to inspection, nondistended, normoactive bowel sounds, non-tender and non-distended Extremity normal capillary refill General Extremity: Negative for edema Skin no rashes or lesions noted General Skin Exam: no breakdown Psych affect normal Appearance: appropriate Assessment & Plan Assessment/Plan (1) Debility: (2) Prosthetic hip infection: (3) Vitamin D deficiency: (4) Alzheimer's disease: (5) GERD (gastroesophageal reflux disease): PLAN: 80 year old female with below past medical history significant for infected right prosthetic hip, underwent revision right total hip replacement 05/02/[address] Sanchez, admitted to TCU with debility, here for rehabilitation, strengthening, jail intravenous antibiotics, prior to discharge home with son. * Debility - PT/OT. * Pain - Tylenol 1000mg Q8, 1000mg Q8H PRN pain (1-3), Oxycodone 5mg Q4H PRN pain (4-10). * Bowel - Miralax 17gm daily, senna/colace 2 tablets twice daily, Dulcolax 10mg daily PRN. * Adult immunization - Administer prevnar 13, pneumovax 23, fluzone, covid19 vaccine as appropriate. * DVT prophylaxis - Xarelto 10mg daily thru 06/06/2021. * Vitamin C deficiency - Vitamin C 500mg daily. * CV prophylaxis - Aspirin 81mg daily to start 06/07/2021. * Indigestion - TUMS 500mg TID PRN. * Vitamin D deficiency - Vitamin D3 25mcg daily. * Alzheimer Disease - Donepezil 10mg QHS. * GERD - Pantoprazole 20mg daily. 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 Wiseman. * Vitamin B deficiency - Vitamin B complex 1 tablet daily. * Postoperative anemia - Good response to 2 unit prbc transfusion, Ferrex 150mg daily. * Hypertension - add Losartan 100mg daily, blood pressure not well controlled. Capacity Capacity Assessment Tool Can the patient make a choice & communicate that choice?: Yes Can the patient understand benefits, risks and alternatives?: Yes Is the choice the patient makes consistent w/ their values?: Yes Is there an impending, emergent risk to the patient?: No Does the patient have an Advance Directive?: No Is there a Surrogate Available?: Yes i.e. HCPOA: Yes i.e. close relative (spouse, child, parent, sibling)?: Yes
[2021-05-28] MEDS: Donepezil HCl 10 MG Tablet PO (21:10)
[2021-05-28] MEDS: Losartan Potassium 50 MG Tablet 100 MG PO (21:15)
[2021-05-28 21:46] LABS: Vancomycin, Trough Level 17.8 ug/mL (5.0-15.0)
--- NOTE | 2021-05-29 00:04 | PCM.RX.CS ---
Consult Pharmacy has been consulted to manage selected antiobiotic: Vancomycin Type of Consult: Follow-up Labs: Sodium 140 mmol/L (136-145) 05/26/21 08:10 Potassium 4.0 mmol/L (3.5-5.1) 05/26/21 08:10 Chloride 108 mmol/L (98-107) H 05/26/21 08:10 Carbon Dioxide 25.0 mmol/L (21.0-32.0) 05/26/21 08:10 Anion Gap 7 (5-15) 05/26/21 08:10 BUN 13 mg/dL (7-18) 05/26/21 08:10 Creatinine 0.82 mg/dL (0.55-1.02) 05/26/21 08:10 Est GFR (MDRD) Af Amer 85 mL/min (>60) 05/26/21 08:10 Est GFR (MDRD) Non-Af 71 mL/min (>60) 05/26/21 08:10 BUN/Creatinine Ratio 15.8 RATIO (10-20) 05/26/21 08:10 Glucose 125 mg/dL (74-106) H 05/26/21 08:10 Vancomycin Trough 17.8 ug/mL (5.0-15.0) H 05/28/21 21:21 Goal Trough: 15-20 mcg/mL Pharmacy Plan for Drug Dosing: Pharmacy Service will continue to monitor and adjust dosing as required. TROUGH 17.8 AT 11HOURS. 4 DAYS AND 2 TROUGHS IN RANGE AND NO CHANGE IN SCr. NO CHANGES AND FOLLOW UP TROUGH IN 4 DAYS Follow-Up Labs: Trough Vancomycin Labs to be done on [date and time ordered]: 06/01 @ 0731
[2021-05-29 04:34] VITALS: BP 154/67; PULSE 70
[2021-05-29] MEDS: Acetaminophen 500 MG Tablet 1000 MG PO ×3 (04:38→19:56)
[2021-05-29] MEDS: Cholecalciferol (VIT D3) 25 MCG TABLET (1,000 UNITS) PO (04:38)
[2021-05-29] MEDS: Ascorbic Acid 500 MG Tablet PO (04:39)
[2021-05-29] MEDS: Losartan Potassium 100 MG Tablet PO (04:39)
[2021-05-29] MEDS: Rivaroxaban 10 MG Tablet PO (08:10)
[2021-05-29] MEDS: Vitamin B Comp W-C Capsule 1 CAP PO (08:10)
[2021-05-29] MEDS: Iron Polysaccharide Complex 150 MG CAPSULE PO (08:10)
[2021-05-29] MEDS: 0.9% Saline Lock 10 ML Syringe IV (09:46)
[2021-05-29 10:00] VITALS: PULSE 56; RESP 18; O2SAT 96
[2021-05-29 16:00] VITALS: BP 137/74; PULSE 73; RESP 16; TEMP 36; O2SAT 99
[2021-05-29] MEDS: Donepezil HCl 10 MG Tablet PO (19:55)
[2021-05-30] MEDS: Ascorbic Acid 500 MG Tablet PO (06:33)
[2021-05-30] MEDS: Acetaminophen 500 MG Tablet 1000 MG PO ×2 (06:33→20:55)
[2021-05-30] MEDS: Losartan Potassium 100 MG Tablet PO (06:33)
[2021-05-30] MEDS: Cholecalciferol (VIT D3) 25 MCG TABLET (1,000 UNITS) PO (06:33)
[2021-05-30] MEDS: Pantoprazole Sodium 20 MG Tablet PO (06:33)
[2021-05-30] MEDS: Rivaroxaban 10 MG Tablet PO (08:39)
[2021-05-30] MEDS: Vitamin B Comp W-C Capsule 1 CAP PO (08:39)
[2021-05-30] MEDS: Iron Polysaccharide Complex 150 MG CAPSULE PO (08:39)
[2021-05-30] MEDS: 0.9% Saline Lock 10 ML Syringe IV ×2 (11:02→12:03)
[2021-05-30 16:00] VITALS: BP 141/74; PULSE 58; RESP 15; TEMP 36.9; O2SAT 92
[2021-05-30] MEDS: Donepezil HCl 10 MG Tablet PO (20:56)
[2021-05-31 05:21] VITALS: BP 157/63; PULSE 62; RESP 16; TEMP 36.2; O2SAT 95
[2021-05-31] MEDS: Losartan Potassium 100 MG Tablet PO (05:23)
[2021-05-31] MEDS: Pantoprazole Sodium 20 MG Tablet PO (05:23)
[2021-05-31] MEDS: Cholecalciferol (VIT D3) 25 MCG TABLET (1,000 UNITS) PO (05:24)
[2021-05-31] MEDS: Ascorbic Acid 500 MG Tablet PO (05:24)
[2021-05-31] MEDS: Acetaminophen 500 MG Tablet 1000 MG PO ×3 (05:24→20:39)
[2021-05-31] MEDS: Vitamin B Comp W-C Capsule 1 CAP PO (08:27)
[2021-05-31] MEDS: Iron Polysaccharide Complex 150 MG CAPSULE PO (08:27)
[2021-05-31] MEDS: Rivaroxaban 10 MG Tablet PO (08:27)
[2021-05-31] MEDS: 0.9% Saline Lock 10 ML Syringe IV (12:59)
[2021-05-31 13:51] VITALS: BP 146/69; PULSE 66; RESP 15; TEMP 36; O2SAT 95
[2021-05-31] MEDS: Donepezil HCl 10 MG Tablet PO (20:39)
[2021-05-31 22:09] VITALS: PULSE 64; RESP 18; O2SAT 98
[2021-06-01] MEDS: Pantoprazole Sodium 20 MG Tablet PO (04:49)
[2021-06-01] MEDS: Cholecalciferol (VIT D3) 25 MCG TABLET (1,000 UNITS) PO (04:49)
[2021-06-01] MEDS: Losartan Potassium 100 MG Tablet PO (04:49)
[2021-06-01] MEDS: Ascorbic Acid 500 MG Tablet PO (04:49)
[2021-06-01] MEDS: Acetaminophen 500 MG Tablet 1000 MG PO ×3 (04:49→21:16)
[2021-06-01 04:51] VITALS: BP 158/79; PULSE 70
[2021-06-01] MEDS: Rivaroxaban 10 MG Tablet PO (07:44)
[2021-06-01] MEDS: Iron Polysaccharide Complex 150 MG CAPSULE PO (07:44)
[2021-06-01] MEDS: Vitamin B Comp W-C Capsule 1 CAP PO (07:45)
[2021-06-01] MEDS: 0.9% Saline Lock 10 ML Syringe IV ×2 (09:49→22:33)
[2021-06-01 16:02] VITALS: BP 159/87; PULSE 71; RESP 20; TEMP 36.7; O2SAT 95
[2021-06-01 20:01] VITALS: PULSE 78; RESP 16; O2SAT 95
[2021-06-01] MEDS: Donepezil HCl 10 MG Tablet PO (21:16)
--- NOTE | 2021-06-01 22:32 | PCM.RX.CS ---
Consult Pharmacy has been consulted to manage selected antiobiotic: Vancomycin Type of Consult: Follow-up Suspected Infection: Other Prior Doses of Antibiotics Received/Current Regimen: Medications Vancomycin HCl 750 mg/ Sodium (Chloride) 265 mls @ 250 mls/hr IV Q12H REDDY Last Admin: 06/01/21 11:12 Dose: Infused Labs: Sodium 140 mmol/L (136-145) 05/26/21 08:10 Potassium 4.0 mmol/L (3.5-5.1) 05/26/21 08:10 Chloride 108 mmol/L (98-107) H 05/26/21 08:10 Carbon Dioxide 25.0 mmol/L (21.0-32.0) 05/26/21 08:10 Anion Gap 7 (5-15) 05/26/21 08:10 BUN 13 mg/dL (7-18) 05/26/21 08:10 Creatinine 0.82 mg/dL (0.55-1.02) 05/26/21 08:10 Est GFR (MDRD) Af Amer 85 mL/min (>60) 05/26/21 08:10 Est GFR (MDRD) Non-Af 71 mL/min (>60) 05/26/21 08:10 BUN/Creatinine Ratio 15.8 RATIO (10-20) 05/26/21 08:10 Glucose 125 mg/dL (74-106) H 05/26/21 08:10 Vancomycin Trough 18.0 ug/mL (5.0-15.0) H 06/01/21 21:28 Weight used for dosin.6 kg Estimated Creatinine Clearance: 57 Goal Trough: 15-20 mcg/mL Pharmacy Plan for Drug Dosing: Vancomycin trough level of 18.0 was within target range of 15-20. Will continue same dosing and re-draw a trough 06/05/21. Pharmacy Service will continue to monitor and adjust dosing as required. Follow-Up Labs: Trough Vancomycin Labs to be done on [date and time ordered]: 06/05/21 @1367
[2021-06-02 05:20] VITALS: BP 166/59; PULSE 67; RESP 14
[2021-06-02] MEDS: Pantoprazole Sodium 20 MG Tablet PO (05:20)
[2021-06-02] MEDS: Acetaminophen 500 MG Tablet 1000 MG PO ×3 (05:20→22:06)
[2021-06-02] MEDS: Cholecalciferol (VIT D3) 25 MCG TABLET (1,000 UNITS) PO (05:20)
[2021-06-02] MEDS: Ascorbic Acid 500 MG Tablet PO (05:20)
[2021-06-02] MEDS: Losartan Potassium 100 MG Tablet PO (05:20)
[2021-06-02 06:57] LABS: Absolute Lymphocyte Count 1.32 X10^3/uL (0.83-4.51); Absolute Neutrophil Count 2.5 X10^3/uL (2.0-7.7); Basophil# 0.06 X10^3/uL; Basophil% 1.3 % (0-1); Eosinophil# 0.38 X10^3/uL; Eosinophils% 8.1 % (0-5); Hematocrit 34.1 % (37-47); Hemoglobin 10.6 g/dL (12.0-15.0); Lymphocyte # 1.32 X10^3/ul (0.83-4.51); Mean Corp Hgb Conc 31.1 g/dL (32-36); Mean Corpuscular Hgb 26.6 pg (27.0-32.0); Mean Corpuscular Volume 85.7 fL (81-99); Mean Platelet Vol. 9.5 fl (6.2-12.0); Monocyte# 0.49 X10^3/uL; Monocyte% 10.4 % (0-10); NRBC Flagged by Analyzer 0 % (0-5); Neutrophil # 2.45 X10^3/uL (2.7-7.7); Platelet Count 197 K/mm3 (150-450); RBC Distribution Width CV 14.8 % (11.6-14.6); RBC Distribution Width SD 46.5 fl (35.1-43.9); Red Blood Count 3.98 M/mm3 (4.2-5.4); White Blood Count 4.7 K/mm3 (4.4-11.0)
[2021-06-02 07:18] LABS: Anion Gap 6 (5-15); BUN 20 mg/dL (7-18); BUN/Creat Ratio 22.1 RATIO (10-20); Calcium,Total 8.9 mg/dL (8.5-10.1); Chloride 107 mmol/L (98-107); EST Glomerular Filtration Rate 64 mL/min (>60); Est Glom Filt Rate - Afr Amer 77 mL/min (>60); Estimated Creatinine Clearance 52.35 ml/min; Glucose 95 mg/dL (74-106); Potassium 4.1 mmol/L (3.5-5.1); Sodium Level 140 mmol/L (136-145)
[2021-06-02] MEDS: Rivaroxaban 10 MG Tablet PO (09:19)
[2021-06-02] MEDS: Vitamin B Comp W-C Capsule 1 CAP PO (09:19)
[2021-06-02] MEDS: Iron Polysaccharide Complex 150 MG CAPSULE PO (09:19)
[2021-06-02] MEDS: 0.9% Saline Lock 10 ML Syringe IV (11:06)
[2021-06-02] MEDS: Alteplase 2 MG/2 ML Vial IV (12:32)
--- NOTE | 2021-06-02 13:19 | NURSING ---
Picc able to be flushed but no blood return noted. Dr. Contreras updated and new order for Cath Con administered and left in picc for 30min Withdrew 5ml of Blood and Discarded. Started Morning dose of Vancomycin. Pharmacy updated and stated it is okay to continue with normal times for Vancomycin.
[2021-06-02 18:43] VITALS: BP 148/66; PULSE 76; RESP 16; TEMP 36.4; O2SAT 98
[2021-06-02 18:44] VITALS: PULSE 76; RESP 16; O2SAT 98
[2021-06-02] MEDS: Donepezil HCl 10 MG Tablet PO (22:05)
[2021-06-03] MEDS: Cholecalciferol (VIT D3) 25 MCG TABLET (1,000 UNITS) PO (06:38)
[2021-06-03] MEDS: Pantoprazole Sodium 20 MG Tablet PO (06:38)
[2021-06-03] MEDS: Losartan Potassium 100 MG Tablet PO (06:38)
[2021-06-03] MEDS: Ascorbic Acid 500 MG Tablet PO (06:39)
[2021-06-03] MEDS: Acetaminophen 500 MG Tablet 1000 MG PO ×3 (06:39→21:17)
[2021-06-03] MEDS: Vitamin B Comp W-C Capsule 1 CAP PO (08:19)
[2021-06-03] MEDS: Iron Polysaccharide Complex 150 MG CAPSULE PO (08:19)
[2021-06-03] MEDS: Rivaroxaban 10 MG Tablet PO (08:19)
[2021-06-03] MEDS: 0.9% Saline Lock 10 ML Syringe IV ×2 (09:53→21:17)
[2021-06-03 13:26] VITALS: BP 119/65; PULSE 76; RESP 16; TEMP 36.7; O2SAT 98
[2021-06-03 21:10] VITALS: PULSE 76; RESP 16; O2SAT 98
[2021-06-03] MEDS: Donepezil HCl 10 MG Tablet PO (21:16)
[2021-06-04 07:00] VITALS: BP 145/63; PULSE 66
[2021-06-04] MEDS: Cholecalciferol (VIT D3) 25 MCG TABLET (1,000 UNITS) PO (07:01)
[2021-06-04] MEDS: Losartan Potassium 100 MG Tablet PO (07:01)
[2021-06-04] MEDS: Acetaminophen 500 MG Tablet 1000 MG PO ×3 (07:01→22:12)
[2021-06-04] MEDS: Pantoprazole Sodium 20 MG Tablet PO (07:01)
[2021-06-04] MEDS: Ascorbic Acid 500 MG Tablet PO (07:01)
[2021-06-04] MEDS: Vitamin B Comp W-C Capsule 1 CAP PO (09:41)
[2021-06-04] MEDS: Iron Polysaccharide Complex 150 MG CAPSULE PO (09:41)
[2021-06-04] MEDS: Rivaroxaban 10 MG Tablet PO (09:41)
[2021-06-04] MEDS: 0.9% Saline Lock 10 ML Syringe IV ×2 (10:19→22:09)
[2021-06-04 13:26] VITALS: PULSE 74; RESP 16; O2SAT 96
--- NOTE | 2021-06-04 16:24 | PCM.PN.ID ---
Physical Exam Narrative Feeling better, no fever, no n/v/d. 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 Sanchez, single surg cx with MSSE and one with aerococcus viridans, will treat as true infection. Has picc for 6 weeks iv vanc, stop date 06/15/21, weekly labs. Reports h/o severe swelling with PCN, wishes to avoid that class, otherwise ceftriaxone could be an option. Has completed covid vaccine. 06/15/21, would change to po doxy 100mg bid, plan on one year of abx. ID followup in 2 months. Will follow
[2021-06-04 17:14] VITALS: BP 124/70; PULSE 74; RESP 16; TEMP 36.7; O2SAT 98
[2021-06-04] MEDS: Donepezil HCl 10 MG Tablet PO (22:12)
[2021-06-05 06:38] VITALS: BP 149/69; PULSE 67
[2021-06-05] MEDS: Cholecalciferol (VIT D3) 25 MCG TABLET (1,000 UNITS) PO (06:39)
[2021-06-05] MEDS: Acetaminophen 500 MG Tablet 1000 MG PO ×2 (06:39→21:01)
[2021-06-05] MEDS: Losartan Potassium 100 MG Tablet PO (06:39)
[2021-06-05] MEDS: Ascorbic Acid 500 MG Tablet PO (06:39)
[2021-06-05] MEDS: Pantoprazole Sodium 20 MG Tablet PO (06:40)
[2021-06-05] MEDS: Vitamin B Comp W-C Capsule 1 CAP PO (07:45)
[2021-06-05] MEDS: Rivaroxaban 10 MG Tablet PO (07:45)
[2021-06-05] MEDS: Iron Polysaccharide Complex 150 MG CAPSULE PO (07:45)
[2021-06-05 10:49] LABS: Vancomycin, Trough Level 15.3 ug/mL (5.0-15.0)
--- NOTE | 2021-06-05 11:07 | PCM.RX.CS ---
Consult Pharmacy has been consulted to manage selected antiobiotic: Vancomycin Type of Consult: Follow-up Prior Doses of Antibiotics Received/Current Regimen: currently on 750mg IV q12h Labs: Sodium 140 mmol/L (136-145) 06/02/21 06:30 Potassium 4.1 mmol/L (3.5-5.1) 06/02/21 06:30 Chloride 107 mmol/L (98-107) 06/02/21 06:30 Carbon Dioxide 27.0 mmol/L (21.0-32.0) 06/02/21 06:30 Anion Gap 6 (5-15) 06/02/21 06:30 BUN 20 mg/dL (7-18) H 06/02/21 06:30 Creatinine 0.90 mg/dL (0.55-1.02) 06/02/21 06:30 Est GFR (MDRD) Af Amer 77 mL/min (>60) 06/02/21 06:30 Est GFR (MDRD) Non-Af 64 mL/min (>60) 06/02/21 06:30 BUN/Creatinine Ratio 22.1 RATIO (10-20) H 06/02/21 06:30 Glucose 95 mg/dL (74-106) 06/02/21 06:30 Vancomycin Trough 15.3 ug/mL (5.0-15.0) H 06/05/21 09:43 Weight used for dosin.6 kg Estimated Creatinine Clearance: 52 ml/min Goal Trough: 15-20 mcg/mL Pharmacy Plan for Drug Dosing: The vanc trough drawn before this morning's dose (drawn about 12 hours after the previous dose) came back at 15.3. This is still within goal range so will continue same dose. Will recheck another trough in 4 days since it is in the lower part of the goal range. Pharmacy Service will continue to monitor and adjust dosing as required. Follow-Up Labs: Trough Vancomycin Labs to be done on [date and time ordered]: 06/09/21 0930
[2021-06-05] MEDS: 0.9% Saline Lock 10 ML Syringe IV ×3 (11:45→22:39)
[2021-06-05 14:18] VITALS: BP 143/70; PULSE 73; RESP 15; TEMP 36.2; O2SAT 94
[2021-06-05 19:56] VITALS: PULSE 76; RESP 14; O2SAT 97
[2021-06-05] MEDS: Donepezil HCl 10 MG Tablet PO (21:01)
[2021-06-06] MEDS: Acetaminophen 500 MG Tablet 1000 MG PO ×3 (05:09→21:24)
[2021-06-06] MEDS: Losartan Potassium 100 MG Tablet PO (05:09)
[2021-06-06] MEDS: Pantoprazole Sodium 20 MG Tablet PO (05:09)
[2021-06-06] MEDS: Ascorbic Acid 500 MG Tablet PO (05:09)
[2021-06-06] MEDS: Cholecalciferol (VIT D3) 25 MCG TABLET (1,000 UNITS) PO (05:09)
[2021-06-06] MEDS: Rivaroxaban 10 MG Tablet PO (09:05)
[2021-06-06] MEDS: Iron Polysaccharide Complex 150 MG CAPSULE PO (09:05)
[2021-06-06] MEDS: Vitamin B Comp W-C Capsule 1 CAP PO (09:06)
[2021-06-06 10:00] VITALS: PULSE 74; RESP 16; O2SAT 98
[2021-06-06] MEDS: 0.9% Saline Lock 10 ML Syringe IV (10:44)
--- NOTE | 2021-06-06 11:44 | NURSING ---
Pt refused Influenza Vaccine.
--- NOTE | 2021-06-06 13:36 | PCM.RX.CS ---
Consult Pharmacy has been consulted to manage selected antiobiotic: Vancomycin Type of Consult: Follow-up Prior Doses of Antibiotics Received/Current Regimen: 06/05/21 114 06/05/21 2102 06/06/21 1043 Labs: Sodium 140 mmol/L (136-145) 06/02/21 06:30 Potassium 4.1 mmol/L (3.5-5.1) 06/02/21 06:30 Chloride 107 mmol/L (98-107) 06/02/21 06:30 Carbon Dioxide 27.0 mmol/L (21.0-32.0) 06/02/21 06:30 Anion Gap 6 (5-15) 06/02/21 06:30 BUN 20 mg/dL (7-18) H 06/02/21 06:30 Creatinine 0.90 mg/dL (0.55-1.02) 06/02/21 06:30 Est GFR (MDRD) Af Amer 77 mL/min (>60) 06/02/21 06:30 Est GFR (MDRD) Non-Af 64 mL/min (>60) 06/02/21 06:30 BUN/Creatinine Ratio 22.1 RATIO (10-20) H 06/02/21 06:30 Glucose 95 mg/dL (74-106) 06/02/21 06:30 Vancomycin Trough 15.3 ug/mL (5.0-15.0) H 06/05/21 09:43 Weight used for dosin kg Estimated Creatinine Clearance: 53 Goal Trough: 15-20 mcg/mL Pharmacy Plan for Drug Dosing: Trough level 06/09/2021 continue with 750mg q12h. Thank You Pharmacy Service will continue to monitor and adjust dosing as required. Follow-Up Labs: Trough Vancomycin Labs to be done on [date and time ordered]: 06/09/2021
[2021-06-06 15:27] VITALS: BP 135/78; PULSE 76; RESP 16; TEMP 36.6; O2SAT 96
[2021-06-06] MEDS: Donepezil HCl 10 MG Tablet PO (21:25)
[2021-06-07] MEDS: Acetaminophen 500 MG Tablet 1000 MG PO ×3 (05:12→21:30)
[2021-06-07] MEDS: Pantoprazole Sodium 20 MG Tablet PO (05:13)
[2021-06-07] MEDS: Losartan Potassium 100 MG Tablet PO (05:13)
[2021-06-07] MEDS: Ascorbic Acid 500 MG Tablet PO (05:13)
[2021-06-07] MEDS: Cholecalciferol (VIT D3) 25 MCG TABLET (1,000 UNITS) PO (05:13)
[2021-06-07] MEDS: Vitamin B Comp W-C Capsule 1 CAP PO (08:43)
[2021-06-07] MEDS: Aspirin E.C. 81 MG Tablet PO (08:43)
[2021-06-07] MEDS: Iron Polysaccharide Complex 150 MG CAPSULE PO (08:43)
[2021-06-07] MEDS: 0.9% Saline Lock 10 ML Syringe IV ×3 (10:30→23:00)
--- NOTE | 2021-06-07 12:28 | PCA ---
Went into pt's room to pickup lunch tray, pt did not eat cottage cheese or peaches from lunch. pt stated she wanted me to save them for someone else. I explained to her that we were unable to give food from one pt to another pt was discouraged that she is wasting so much food at times and how she doesn't understand what she needs to do to get it through to dietary that she wants smaller portions. i explained to her that i will contact the kitchen and make them aware that you would like small portions. called kitchen an told staff she wanted smaller portions on meal trays from here on out.
[2021-06-07 15:33] VITALS: BP 127/61; PULSE 70; RESP 14; TEMP 36.7; O2SAT 97
[2021-06-07 20:04] VITALS: PULSE 77; RESP 14; O2SAT 96
[2021-06-07] MEDS: Donepezil HCl 10 MG Tablet PO (21:31)
[2021-06-08] MEDS: Acetaminophen 500 MG Tablet 1000 MG PO (05:27)
[2021-06-08] MEDS: Ascorbic Acid 500 MG Tablet PO (05:28)
[2021-06-08] MEDS: Losartan Potassium 100 MG Tablet PO (05:28)
[2021-06-08] MEDS: Cholecalciferol (VIT D3) 25 MCG TABLET (1,000 UNITS) PO (05:28)
[2021-06-08] MEDS: Pantoprazole Sodium 20 MG Tablet PO (05:28)
[2021-06-08 05:30] VITALS: BP 163/66; PULSE 62
[2021-06-08] MEDS: 0.9% Saline Lock 10 ML Syringe IV ×2 (07:08→22:47)
[2021-06-08] MEDS: Iron Polysaccharide Complex 150 MG CAPSULE PO (07:51)
[2021-06-08] MEDS: Vitamin B Comp W-C Capsule 1 CAP PO (07:51)
[2021-06-08] MEDS: Aspirin E.C. 81 MG Tablet PO (07:51)
[2021-06-08] MEDS: Alteplase 2 MG/2 ML Vial IV (08:52)
--- NOTE | 2021-06-08 09:30 | NURSING ---
Cath Con Administered per Dr. Contreras's order let sit in PICC line for 30min blood return noted and wasted 5ml of blood per protocol. John Vancomycin will continue to assess Picc.
[2021-06-08 16:00] VITALS: BP 134/73; PULSE 68; RESP 16; TEMP 36.8; O2SAT 97
[2021-06-08] MEDS: Donepezil HCl 10 MG Tablet PO (22:42)
[2021-06-09] MEDS: 0.9% Saline Lock 10 ML Syringe IV ×3 (00:01→22:31)
[2021-06-09 05:30] VITALS: BP 165/65; PULSE 64
[2021-06-09] MEDS: Cholecalciferol (VIT D3) 25 MCG TABLET (1,000 UNITS) PO (06:18)
[2021-06-09] MEDS: Pantoprazole Sodium 20 MG Tablet PO (06:18)
[2021-06-09] MEDS: Losartan Potassium 100 MG Tablet PO (06:18)
[2021-06-09] MEDS: Ascorbic Acid 500 MG Tablet PO (06:18)
[2021-06-09 08:39] LABS: Absolute Lymphocyte Count 1.08 X10^3/uL (0.83-4.51); Absolute Neutrophil Count 3.5 X10^3/uL (2.0-7.7); Basophil# 0.04 X10^3/uL; Basophil% 0.8 % (0-1); Eosinophil# 0.29 X10^3/uL; Eosinophils% 5.5 % (0-5); Hematocrit 34.7 % (37-47); Hemoglobin 10.9 g/dL (12.0-15.0); Lymphocyte # 1.08 X10^3/ul (0.83-4.51); Lymphocyte % 20.4 % (19-41); Mean Corp Hgb Conc 31.4 g/dL (32-36); Mean Corpuscular Hgb 26.5 pg (27.0-32.0); Mean Corpuscular Volume 84.4 fL (81-99); Mean Platelet Vol. 9.5 fl (6.2-12.0); Monocyte# 0.41 X10^3/uL; Monocyte% 7.8 % (0-10); NRBC Flagged by Analyzer 0 % (0-5); Neutrophil # 3.46 X10^3/uL (2.7-7.7); Neutrophil % 65.3 % (47-70); Platelet Count 199 K/mm3 (150-450); RBC Distribution Width CV 15.1 % (11.6-14.6); RBC Distribution Width SD 46.1 fl (35.1-43.9); Red Blood Count 4.11 M/mm3 (4.2-5.4); White Blood Count 5.3 K/mm3 (4.4-11.0)
[2021-06-09] MEDS: Iron Polysaccharide Complex 150 MG CAPSULE PO (08:50)
[2021-06-09] MEDS: Aspirin E.C. 81 MG Tablet PO (08:50)
[2021-06-09] MEDS: Vitamin B Comp W-C Capsule 1 CAP PO (08:50)
[2021-06-09 09:28] LABS: Anion Gap 5 (5-15); BUN 12 mg/dL (7-18); BUN/Creat Ratio 15.5 RATIO (10-20); Chloride 108 mmol/L (98-107); Creatinine, Serum 0.77 mg/dL (0.55-1.02); EST Glomerular Filtration Rate 76 mL/min (>60); Est Glom Filt Rate - Afr Amer 92 mL/min (>60); Glucose 93 mg/dL (74-106); Potassium 4.4 mmol/L (3.5-5.1); Sodium Level 141 mmol/L (136-145)
[2021-06-09 10:35] LABS: Vancomycin, Trough Level 18.8 ug/mL (5.0-15.0)
--- NOTE | 2021-06-09 10:57 | PCM.RX.CS ---
Consult Pharmacy has been consulted to manage selected antiobiotic: Vancomycin Type of Consult: Follow-up Suspected Infection: Other Prior Doses of Antibiotics Received/Current Regimen: Currently on 750mg iv q12h. Labs: Sodium 141 mmol/L (136-145) 06/09/21 08:10 Potassium 4.4 mmol/L (3.5-5.1) 06/09/21 08:10 Chloride 108 mmol/L (98-107) H 06/09/21 08:10 Carbon Dioxide 28.0 mmol/L (21.0-32.0) 06/09/21 08:10 Anion Gap 5 (5-15) 06/09/21 08:10 BUN 12 mg/dL (7-18) 06/09/21 08:10 Creatinine 0.77 mg/dL (0.55-1.02) 06/09/21 08:10 Est GFR (MDRD) Af Amer 92 mL/min (>60) 06/09/21 08:10 Est GFR (MDRD) Non-Af 76 mL/min (>60) 06/09/21 08:10 BUN/Creatinine Ratio 15.5 RATIO (10-20) 06/09/21 08:10 Glucose 93 mg/dL (74-106) 06/09/21 08:10 Vancomycin Trough 18.8 ug/mL (5.0-15.0) H 06/09/21 09:30 Weight used for dosin.9 kg Estimated Creatinine Clearance: 47 ml/min Goal Trough: 15-20 mcg/mL Pharmacy Plan for Drug Dosing: Trough today was 18.8 (goal range 15-20mcg/ml). Will continue same dose and get another trough level in 4 days per protocol. Pharmacy Service will continue to monitor and adjust dosing as required. Follow-Up Labs: Trough Vancomycin - 9.29.21 @0930 before 1000 dose
[2021-06-09 14:25] VITALS: BP 136/53; PULSE 72; RESP 16; TEMP 36.4; O2SAT 94
[2021-06-09] MEDS: Donepezil HCl 10 MG Tablet PO (22:26)
[2021-06-10] MEDS: Losartan Potassium 100 MG Tablet PO (06:47)
[2021-06-10] MEDS: Cholecalciferol (VIT D3) 25 MCG TABLET (1,000 UNITS) PO (06:47)
[2021-06-10] MEDS: Ascorbic Acid 500 MG Tablet PO (06:47)
[2021-06-10] MEDS: Pantoprazole Sodium 20 MG Tablet PO (06:47)
[2021-06-10] MEDS: Iron Polysaccharide Complex 150 MG CAPSULE PO (08:34)
[2021-06-10] MEDS: Vitamin B Comp W-C Capsule 1 CAP PO (08:34)
[2021-06-10] MEDS: Aspirin E.C. 81 MG Tablet PO (08:34)
[2021-06-10 10:00] VITALS: PULSE 85; RESP 16; O2SAT 96
[2021-06-10] MEDS: 0.9% Saline Lock 10 ML Syringe IV (10:25)
[2021-06-10 14:43] VITALS: BP 150/82; PULSE 77; RESP 16; TEMP 36.6; O2SAT 93
[2021-06-10] MEDS: Donepezil HCl 10 MG Tablet PO (21:36)
[2021-06-11] MEDS: Ascorbic Acid 500 MG Tablet PO (05:33)
[2021-06-11] MEDS: Losartan Potassium 100 MG Tablet PO (05:33)
[2021-06-11] MEDS: Cholecalciferol (VIT D3) 25 MCG TABLET (1,000 UNITS) PO (05:33)
[2021-06-11] MEDS: Pantoprazole Sodium 20 MG Tablet PO (05:33)
[2021-06-11] MEDS: Iron Polysaccharide Complex 150 MG CAPSULE PO (08:17)
[2021-06-11] MEDS: Aspirin E.C. 81 MG Tablet PO (08:17)
[2021-06-11] MEDS: Vitamin B Comp W-C Capsule 1 CAP PO (08:17)
[2021-06-11] MEDS: 0.9% Saline Lock 10 ML Syringe IV ×2 (10:18→22:08)
[2021-06-11 14:41] VITALS: BP 137/73; PULSE 74; RESP 16; TEMP 36.2; O2SAT 96
[2021-06-11] MEDS: Donepezil HCl 10 MG Tablet PO (22:09)
[2021-06-12] MEDS: Acetaminophen 500 MG Tablet 1000 MG PO (00:04)
[2021-06-12 05:38] VITALS: BP 138/72; PULSE 621; RESP 16; TEMP 36.3; O2SAT 96
[2021-06-12] MEDS: Pantoprazole Sodium 20 MG Tablet PO (05:39)
[2021-06-12] MEDS: Losartan Potassium 100 MG Tablet PO (05:39)
[2021-06-12] MEDS: Ascorbic Acid 500 MG Tablet PO (05:39)
[2021-06-12] MEDS: Cholecalciferol (VIT D3) 25 MCG TABLET (1,000 UNITS) PO (05:39)
[2021-06-12] MEDS: Iron Polysaccharide Complex 150 MG CAPSULE PO (08:30)
[2021-06-12] MEDS: Vitamin B Comp W-C Capsule 1 CAP PO (08:30)
[2021-06-12] MEDS: Aspirin E.C. 81 MG Tablet PO (08:30)
[2021-06-12] MEDS: 0.9% Saline Lock 10 ML Syringe IV ×3 (09:20→23:26)
--- NOTE | 2021-06-12 16:08 | CASEMGMT ---
Social Work Spoke with pt about DC. IV ATBs are done 06/15 and IDT agreeable to DC 06/16. Pt agreeable. Denies any therapy, nursing or DME needs. Family to transport. 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
--- NOTE | 2021-06-12 19:48 | PCM.DC.SUM ---
Providers Date of Admission: 05/04/21 Primary Care Physician: Dr. 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 staph EMERGENT Consult: No Notified: Yes Date Notified: 05/04/21 Time Notified: 22:26 Method of Notification: Answering Service Method of Consult:: In-Person Comments:: answer service Reason For Visit: R TOTAL HIP REVISION Diagnosis Discharge Diagnosis (1) Prosthetic hip infection: Status: Acute Code(s): T84.59XA - Infection and inflammatory reaction due to other internal joint prosthesis, initial encounter; Z96.649 - Presence of unspecified artificial hip joint Medications at Discharge Home Medications aspirin 81 mg PO DAILY 07/18/17 ascorbic acid (vitamin C) 500 mg PO DAILY 10/29/17 cholecalciferol (vitamin D3) 1,000 unit PO DAILY 10/29/17 calcium carbonate 200 mg calcium (500 mg) chewable tablet 200 mg PO QPC PRN tab 05/24/20 vitamin B complex 1 tab PO DAILY 05/24/20 omeprazole 20 mg PO PRN PRN 05/29/20 donepezil 10 mg PO QHS 30 Days #30 tab 06/12/21 losartan 100 mg PO DAILY 30 Days #30 tab 06/12/21 polysaccharide iron complex [Ferrex 150] 150 mg PO DAILYCM 30 Days #30 cap 06/12/21 Hospital Course Operations total hip replacement (revision right total hip.) Procedures None Summary of Care Provided Minutes Spent on Discharge: 35 Hospital Course: 80 year old female with below past medical history significant for infected right prosthetic hip, underwent revision right total hip replacement 05/02/[address] Sanchez, admitted to TCU with debility, here for rehabilitation, strengthening, nursing home intravenous antibiotics, prior to discharge home with son. Discharge home alone 06/16/2021, No needs. Physical Exam Const alert and oriented x3 General Appearance: cooperative HEENT normocephalic Eyes PERRL and EOMs intact bilaterally Neck supple, no JVD and no carotid bruits Resp normal respiratory effort, normal air movement and clear to auscultation bilaterally Cardio regular rate and regular rhythm GI normal to inspection, nondistended, normoactive bowel sounds, non-tender and non-distended Extremity normal capillary refill General Extremity: Negative for edema Skin no rashes or lesions noted General Skin Exam: no breakdown Psych affect normal Appearance: appropriate Weight / BMI Weight Weight: 67.903 kg Body Mass Index (BMI) 29.7 ABG / Lab / Microbiology Data Result Diagrams: 06/09/21 08:10 06/09/21 08:10 D/C Instructions Discharge Diet: No restrictions Discharge Activity: Return to Normal Activity, May Shower and Use Walker Weight Bearing Status: Weight bearing as tolerated Call your doctor if you observe: Fever of 101 or Higher, Inability to urinate, Inability to have a bowel movement, Shortness of breath, Dizziness, Fainting spells, Swelling in the ankles, Chest pain and Uncontrolled pain Additional Instructions: Discharge home alone 06/16/2021, No needs. Please Follow Up With: Florencia Moran PA When: As scheduled. Meaningful Use Info Meaningful Use Diagnoses (Choose all that apply): None applicable Discharge Plan Admission Admit Date/Time: 05/04/21 20:56 Primary Reason for Your Visit: Debility. Attending Provider: Yobani Contreras Chi Primary Care Provider: Joel Kumar Consulting Providers: Ayo Wiseman Instructions Additional Instructions / Restrictions: Discharge home alone 06/16/2021, No needs. Discharge Orders/Prescriptions Prescriptions: New donepezil 10 mg Tablet 10 mg PO QHS 30 Days Qty: 30 RF: 0 polysaccharide iron complex [Ferrex 150] 150 mg iron Capsule 150 mg PO DAILYCM 30 Days Qty: 30 RF: 0 losartan 100 mg Tablet 100 mg PO DAILY 30 Days Qty: 30 RF: 0 Continued vitamin B complex [B Complex-Vitamin B12] Tablet 1 tab PO DAILY RF: 0 calcium carbonate [Tums] 200 mg calcium (500 mg) tablet,chewable 200 mg PO QPC PRN (Reason: GERD) RF: 0 aspirin 81 MG tablet,delayed release (DR/EC) 81 mg PO DAILY RF: 0 Hold Instructions: Resume on 05/17/21. ascorbic acid (vitamin C) 500 MG tablet 500 mg PO DAILY RF: 0 cholecalciferol (vitamin D3) 1,000 UNIT capsule 1,000 unit PO DAILY RF: 0 omeprazole 20 MG capsule 20 mg PO PRN PRN (Reason: GERD) RF: 0 Discontinued donepezil 5 mg tablet 5 mg PO QHS RF: 0 acetaminophen 500 MG tablet 1,000 mg PO Q8 RF: 0 oxycodone 5 mg tablet 5 - 10 mg PO .q4-6h prn PRN (Reason: Pain Score 4-10) 7 Days Qty: 56 RF: 0 vancomycin 1,000 mg Recon Soln 1 ea IV X1 PRN (Reason: Rx To Dose) 42 Days Qty: 42 RF: 0 sennosides-docusate sodium [Stool Softener-Stimulant Laxat] 8.6-50 mg tablet 2 tab PO BID RF: 0 acetaminophen 500 mg tablet 1,000 mg PO Q8 PRN (Reason: Pain) RF: 0 Xarelto 10 mg tablet 10 mg PO DAILYCM RF: 0 Referrals / Follow Up: Joel Kumar MD [Primary Care Provider] - Disposition Disposition (needs filled in before D/C Order can be placed): Home, Self Care
[2021-06-12 20:14] VITALS: BP 147/71; PULSE 71; RESP 16; TEMP 36.7; O2SAT 96
[2021-06-12] MEDS: Donepezil HCl 10 MG Tablet PO (21:50)
[2021-06-13 04:45] VITALS: BP 160/66; PULSE 71
[2021-06-13] MEDS: Cholecalciferol (VIT D3) 25 MCG TABLET (1,000 UNITS) PO (04:45)
[2021-06-13] MEDS: Ascorbic Acid 500 MG Tablet PO (04:45)
[2021-06-13] MEDS: Losartan Potassium 100 MG Tablet PO (04:46)
[2021-06-13] MEDS: Pantoprazole Sodium 20 MG Tablet PO (04:46)
[2021-06-13] MEDS: Aspirin E.C. 81 MG Tablet PO (09:10)
[2021-06-13] MEDS: Iron Polysaccharide Complex 150 MG CAPSULE PO (09:10)
[2021-06-13] MEDS: Vitamin B Comp W-C Capsule 1 CAP PO (09:10)
[2021-06-13 10:05] LABS: Vancomycin, Trough Level 19.1 ug/mL (5.0-15.0)
[2021-06-13] MEDS: 0.9% Saline Lock 10 ML Syringe IV ×2 (10:15→10:21)
--- NOTE | 2021-06-13 10:24 | PCM.PN.RX ---
Progress Note - Pharmacy Subjective: TCU May Note Objective: Allergies Penicillins [PCN] Allergy (Verified 04/19/21 09:09) Swelling Current Medications Generic Name Dose Route Start Last Admin Trade Name Sharon PRN Reason Stop Dose Admin Acetaminophen 1,000 mg 05/04/21 22:25 06/12/21 00:04 Acetaminophen 500 Mg Tablet PO 1,000 mg Q8H PRN PRN Administration Pain Score 1-3 Ascorbic Acid 500 mg 05/05/21 06:00 06/13/21 04:45 Ascorbic Acid 500 Mg Tablet PO 500 mg DAILY REDDY Administration Aspirin 81 mg 06/07/21 08:00 06/13/21 09:10 Aspirin E.C. 81 Mg Tablet PO 81 mg DAILYCM REDDY Administration Bisacodyl 10 mg 05/04/21 22:24 Bisacodyl 5 Mg Tablet PO DAILY PRN Constipation Calcium Carbonate 500 mg 05/04/21 21:16 Calcium Carbonate 500 Mg Tablet PO TID PRN PRN GERD Cholecalciferol 25 mcg 05/05/21 06:00 06/13/21 04:45 Cholecalciferol (Vit D3) 25 Mcg Tablet (1,000 Units) PO 25 mcg DAILY REDDY Administration Donepezil HCl 10 mg 05/22/21 22:00 06/12/21 21:50 Donepezil Hcl 10 Mg Tablet PO 10 mg QHS REDDY Administration Heparin Sodium (Beef Lung) 50 units 05/05/21 00:23 06/07/21 23:00 Heparin Pf Lock 10 Units/Ml 50 Units/5 Ml Syringe IV 50 units UD PRN Administration PICC Line Heparin Flush Sodium Chloride 250 mls @ 15 mls/hr 05/05/21 00:23 06/13/21 10:23 IV Infused .[id number] PRN Infusion Saline Flush Sodium Chloride 250 mls @ 15 mls/hr 05/05/21 00:23 06/13/21 10:23 IV Infused .[id number] PRN Infusion Additional IVPB Infusion Vancomycin HCl 750 mg/ Sodium 265 mls @ 250 mls/hr 05/24/21 22:00 06/13/21 10:15 Chloride IV 250 mls/hr Q12H REDDY Administration Losartan Potassium 100 mg 05/29/21 06:00 06/13/21 04:46 Losartan Potassium 100 Mg Tablet PO 100 mg DAILY REDDY Administration Multivitamins 1 capsule 05/05/21 08:00 06/13/21 09:10 Vitamin B Comp W-C Capsule PO 1 capsule DAILYCM REDDY Administration Oxycodone HCl 5 mg 05/04/21 22:25 05/19/21 20:45 Oxycodone 5 Mg Tablet PO 5 mg Q4H PRN PRN Administration Pain Score 4-10 Pantoprazole Sodium 20 mg 05/05/21 06:00 06/13/21 04:46 Pantoprazole Sodium 20 Mg Tablet PO 20 mg DAILY REDDY Administration Polysaccharide Iron Complex 150 mg 05/06/21 08:00 06/13/21 09:10 Iron Polysaccharide Complex 150 Mg Capsule PO 150 mg DAILYCM REDDY Administration Senna/Docusate Sodium 2 tablet 06/06/21 17:42 Senna/Docusate Sodium 1 Tablet PO BID PRN Constipation Sodium Chloride 10 - 40 ml 05/05/21 00:23 06/13/21 10:21 0.9% Saline Lock 10 Ml Syringe IV 10 ml UD PRN Administration Open End PICC Flush Sodium Chloride 10 - 40 ml 05/05/21 00:23 0.9 % Nacl (Sterile) Posiflush 10 Ml IV UD PRN Port access or dressing change Problem List (Last Updated 05/04/21 @ 22:[address] Yobani Contreras MD) Debility (Acute) Prosthetic hip infection (Acute) Vitamin D deficiency (Acute) Alzheimer's disease (Acute) GERD (gastroesophageal reflux disease) (Acute) Vital Signs Temp Pulse Resp BP Pulse Ox 98.0 F 71 16 160/66 H 96 06/12/21 20:14 06/13/21 04:45 06/12/21 20:14 06/13/21 04:45 06/12/21 20:14 Oxygen Delivery Method Room Air Weight: 67.903 kg Body Mass Index (BMI) 29.7 Sodium 141 mmol/L (136-145) 06/09/21 08:10 Potassium 4.4 mmol/L (3.5-5.1) 06/09/21 08:10 Chloride 108 mmol/L (98-107) H 06/09/21 08:10 Carbon Dioxide 28.0 mmol/L (21.0-32.0) 06/09/21 08:10 Anion Gap 5 (5-15) 06/09/21 08:10 BUN 12 mg/dL (7-18) 06/09/21 08:10 Creatinine 0.77 mg/dL (0.55-1.02) 06/09/21 08:10 Est GFR (MDRD) Af Amer 92 mL/min (>60) 06/09/21 08:10 Est GFR (MDRD) Non-Af 76 mL/min (>60) 06/09/21 08:10 BUN/Creatinine Ratio 15.5 RATIO (10-20) 06/09/21 08:10 Glucose 93 mg/dL (74-106) 06/09/21 08:10 Vancomycin Trough 19.1 ug/mL (5.0-15.0) H 06/13/21 09:18 Assessment/Plan: 1. Pain: acetaminophen 1000mg Q8H PRN pain 1-3 and oxycodone 5mg PO Q4H PRN pain 4-10. Please continue to monitor for increased pain and PRN usage. 2. Infected right prosthetic hip s/p revision: vancomycin 750mg IV Q12H. Please continue to monitor cultures, renal function, diarrhea, and S/S of infection. 3. CV prophylaxis: aspirin 81mg PO DAILYCM. Please continue to monitor for S/S of bleeding/DVT and hemoglobin (last 10.9g/dL). 4. Alzheimer disease: donepezil 10mg PO QHS. Please continue to monitor for S/S of Alzheimer disease and for GI side effects. 5. GERD: pantoprazole 20mg PO daily. Please continue to monitor for S/S of GERD and diarrhea. 6. Indigestion: calcium carbonate 500mg PO TID PRN GERD. Please continue to monitor calcium (last 9.0mg/dL) and S/S of GERD. 7. Postoperative anemia: Ferrex 150mg PO DAILYCM. Please continue to monitor hemoglobin, dark stools and constipation. 8. Vitamin deficiencies: ascorbic acid 500mg PO daily, cholecalciferol 25mcg PO daily and vitamin B complex 1C PO DAILYCM. Please continue to monitor vitamin D and vitamin B levels (last 04/06/21). 9. Hypertension: losartan 100mg PO daily. Please continue to monitor BP (last 160/66) and renal function. Psychotropic Medications: None Unnecessary Medications: None Bowel Regimen: senna/docusate 2T PO BID PRN constipation and bisacodyl 10mg PO daily PRN constipation. Please continue to monitor for constipation and PRN usage. Date of Note:: 06/13/21
--- NOTE | 2021-06-13 12:23 | PCM.RX.CS ---
Consult Pharmacy has been consulted to manage selected antiobiotic: Vancomycin Type of Consult: Follow-up Prior Doses of Antibiotics Received/Current Regimen: currently on 750mg IV q12h Labs: Sodium 141 mmol/L (136-145) 06/09/21 08:10 Potassium 4.4 mmol/L (3.5-5.1) 06/09/21 08:10 Chloride 108 mmol/L (98-107) H 06/09/21 08:10 Carbon Dioxide 28.0 mmol/L (21.0-32.0) 06/09/21 08:10 Anion Gap 5 (5-15) 06/09/21 08:10 BUN 12 mg/dL (7-18) 06/09/21 08:10 Creatinine 0.77 mg/dL (0.55-1.02) 06/09/21 08:10 Est GFR (MDRD) Af Amer 92 mL/min (>60) 06/09/21 08:10 Est GFR (MDRD) Non-Af 76 mL/min (>60) 06/09/21 08:10 BUN/Creatinine Ratio 15.5 RATIO (10-20) 06/09/21 08:10 Glucose 93 mg/dL (74-106) 06/09/21 08:10 Vancomycin Trough 19.1 ug/mL (5.0-15.0) H 06/13/21 09:18 Weight used for dosin.9 kg Estimated Creatinine Clearance: 47ml/min Goal Trough: 15-20 mcg/mL Pharmacy Plan for Drug Dosing: The vanc trough drawn before this morning's dose was 19.1 (drawn 11.5 hours after the previous dose). This is again within goal range so continue same dosing regimen. Will extend the next trough check out to 5 days from now since there has been several troughs in a row now that are within the goal range. Pharmacy Service will continue to monitor and adjust dosing as required. Follow-Up Labs: Trough Vancomycin Labs to be done on [date and time ordered]: 06/18/21 4649
[2021-06-13 16:38] VITALS: BP 140/70; PULSE 62; RESP 17; TEMP 36.8; O2SAT 97
[2021-06-13] MEDS: Donepezil HCl 10 MG Tablet PO (21:32)
[2021-06-13] MEDS: Acetaminophen 500 MG Tablet 1000 MG PO (21:39)
[2021-06-13 21:42] VITALS: PULSE 69; RESP 16; O2SAT 99
[2021-06-14 05:46] VITALS: BP 141/62; PULSE 62
[2021-06-14] MEDS: Pantoprazole Sodium 20 MG Tablet PO (05:46)
[2021-06-14] MEDS: Cholecalciferol (VIT D3) 25 MCG TABLET (1,000 UNITS) PO (05:46)
[2021-06-14] MEDS: Losartan Potassium 100 MG Tablet PO (05:46)
[2021-06-14] MEDS: Ascorbic Acid 500 MG Tablet PO (05:47)
[2021-06-14] MEDS: Vitamin B Comp W-C Capsule 1 CAP PO (08:59)
[2021-06-14] MEDS: Iron Polysaccharide Complex 150 MG CAPSULE PO (08:59)
[2021-06-14] MEDS: Aspirin E.C. 81 MG Tablet PO (08:59)
[2021-06-14] MEDS: 0.9% Saline Lock 10 ML Syringe IV ×2 (10:04→21:31)
[2021-06-14 14:34] VITALS: BP 142/63; PULSE 67; RESP 14; TEMP 36.7; O2SAT 96
--- NOTE | 2021-06-14 14:47 | MDS.RN ---
Pain interview for KEVIN 06/16/21 completed.
[2021-06-14] MEDS: Donepezil HCl 10 MG Tablet PO (20:08)
[2021-06-14 20:10] VITALS: PULSE 77; RESP 16; O2SAT 98
[2021-06-15] MEDS: Cholecalciferol (VIT D3) 25 MCG TABLET (1,000 UNITS) PO (06:02)
[2021-06-15] MEDS: Ascorbic Acid 500 MG Tablet PO (06:02)
[2021-06-15] MEDS: Pantoprazole Sodium 20 MG Tablet PO (06:03)
[2021-06-15] MEDS: Losartan Potassium 100 MG Tablet PO (06:06)
[2021-06-15] MEDS: Iron Polysaccharide Complex 150 MG CAPSULE PO (09:45)
[2021-06-15] MEDS: Vitamin B Comp W-C Capsule 1 CAP PO (09:45)
[2021-06-15] MEDS: Aspirin E.C. 81 MG Tablet PO (09:45)
[2021-06-15] MEDS: 0.9% Saline Lock 10 ML Syringe IV ×2 (10:41→21:08)
--- NOTE | 2021-06-15 10:44 | CASEMGMT ---
Social Work BIMS and PHQ-9 completed for MDS assessment. Tamera Vital, SAND SLINGER OPERATOR HUMAN RESOURCES SUPPORT SPECIALIST
[2021-06-15 15:59] VITALS: BP 132/69; PULSE 64; RESP 16; TEMP 36.3; O2SAT 95
[2021-06-15] MEDS: Donepezil HCl 10 MG Tablet PO (21:12)
[2021-06-15 21:13] VITALS: PULSE 75; RESP 16; O2SAT 97
[2021-06-16] MEDS: Pantoprazole Sodium 20 MG Tablet PO (05:39)
[2021-06-16] MEDS: Ascorbic Acid 500 MG Tablet PO (05:39)
[2021-06-16] MEDS: Losartan Potassium 100 MG Tablet PO (05:39)
[2021-06-16] MEDS: Cholecalciferol (VIT D3) 25 MCG TABLET (1,000 UNITS) PO (05:40)
[2021-06-16 05:42] VITALS: BP 145/71; PULSE 71
[2021-06-16 07:27] LABS: Absolute Lymphocyte Count 1.14 X10^3/uL (0.83-4.51); Absolute Neutrophil Count 3.9 X10^3/uL (2.0-7.7); Basophil# 0.03 X10^3/uL; Basophil% 0.5 % (0-1); Eosinophil# 0.31 X10^3/uL; Eosinophils% 5.4 % (0-5); Hematocrit 38.1 % (37-47); Hemoglobin 12.1 g/dL (12.0-15.0); Lymphocyte # 1.14 X10^3/ul (0.83-4.51); Lymphocyte % 19.9 % (19-41); Mean Corp Hgb Conc 31.8 g/dL (32-36); Mean Corpuscular Hgb 26.5 pg (27.0-32.0); Mean Corpuscular Volume 83.6 fL (81-99); Mean Platelet Vol. 9.8 fl (6.2-12.0); Monocyte# 0.37 X10^3/uL; Monocyte% 6.5 % (0-10); NRBC Flagged by Analyzer 0 % (0-5); Neutrophil # 3.86 X10^3/uL (2.7-7.7); Neutrophil % 67.4 % (47-70); Platelet Count 230 K/mm3 (150-450); RBC Distribution Width CV 14.9 % (11.6-14.6); RBC Distribution Width SD 45.2 fl (35.1-43.9); Red Blood Count 4.56 M/mm3 (4.2-5.4); White Blood Count 5.7 K/mm3 (4.4-11.0)
[2021-06-16 07:54] LABS: Anion Gap 9 (5-15); BUN 14 mg/dL (7-18); Calcium,Total 9.2 mg/dL (8.5-10.1); Chloride 104 mmol/L (98-107); Creatinine, Serum 0.88 mg/dL (0.55-1.02); EST Glomerular Filtration Rate 66 mL/min (>60); Est Glom Filt Rate - Afr Amer 80 mL/min (>60); Estimated Creatinine Clearance 53.54 ml/min; Glucose 140 mg/dL (74-106); Potassium 3.8 mmol/L (3.5-5.1); Sodium Level 139 mmol/L (136-145)
[2021-06-16] MEDS: Iron Polysaccharide Complex 150 MG CAPSULE PO (08:27)
[2021-06-16] MEDS: Aspirin E.C. 81 MG Tablet PO (08:27)
[2021-06-16] MEDS: Vitamin B Comp W-C Capsule 1 CAP PO (08:27)
[2021-06-16 08:36] VITALS: RESP 18; O2SAT 97
[2021-06-16 08:51] VITALS: BP 133/65; PULSE 75; RESP 16; TEMP 35.6; O2SAT 94
== END 2021-06-16 11:50 | disposition home or self-care (01) | DRG 950 ==
PROVIDERS: Internal Medicine Infectious Disease; Admitting Provider Family Medicine Geriatric Medicine; PCP Family Medicine; Visit Provider Family Medicine Geriatric Medicine
DX: T84.51XD Infection and inflammatory reaction due to internal right hip prosthesis, subsequent encounter (principal); E55.9 Vitamin D deficiency, unspecified; G30.9 Alzheimer's disease, unspecified; F02.80 Dementia in other diseases classified elsewhere, unspecified severity, without behavioral disturbance, psychotic disturbance, mood disturbance, and anxiety; Z23 Encounter for immunization; K21.9 Gastro-esophageal reflux disease without esophagitis; B95.7 Other staphylococcus as the cause of diseases classified elsewhere; B96.89 Other specified bacterial agents as the cause of diseases classified elsewhere; E78.5 Hyperlipidemia, unspecified; Y79.2 Prosthetic and other implants, materials and accessory orthopedic devices associated with adverse incidents; Z87.891 Personal history of nicotine dependence; Z86.718 Personal history of other venous thrombosis and embolism; Z96.641 Presence of right artificial hip joint; Z79.82 Long term (current) use of aspirin; Z79.899 Other long term (current) drug therapy; Z79.01 Long term (current) use of anticoagulants; D64.9 Anemia, unspecified
CPT/HCPCS: 36415; 80048; 80202; 85014; 85018; 85025; 86850; 86900; 86901; 86920; 86922; 87635; 92523; 97110; 97116; 97162; 97166; 97530; 97533; 97535; 97802; G0009; J2997; J7050; U0005; 90670; A4216; U0003

== ENCOUNTER → 2021-05-08 11:23 | Outpatient (CLI) | payer MEDICARE, OTHER, SELFPAY ==
--- NOTE | 2021-05-08 11:27 | CT_ITS ---
STUDY: CT SCAN HIP RIGHT REASON FOR EXAM: Female, 80 years old. INCREASED R HIP PAIN/SWELLING RADIATION DOSAGE (If Supplied By Facility): CTDIvol = ( 14.17 ) mGy, DLP = ( 751.12 ) mGycm. Individualized dose optimization techniques were used for this CT.? TECHNIQUE: Multiple axial tomographic images of the right hip joint were obtained without intravenous contrast demonstration. Coronal and sagittal reconstruction was obtained as well. COMPARISON: Comparison is made with prior examination of 07/14/2020. FINDINGS: Once again, the patient is status post right total hip replacement. There is good alignment. No evidence of fracture or subluxation. Persistent soft tissue prominence within the subcutaneous fat overlying the operative site. There is evidence of a 6.1 cm x 2.7 cm well-defined fluid collection in the lateral aspect of the proximal thigh overlying the operative site. This may represent postoperative fluid collection. CT/Extremity Lower without Contra IMPRESSION: Status post right hip replacement with good positioning. Persistent 6.1 cm x 2.7 cm well-defined fluid collection in lateral aspect of the proximal thigh overlying the operative site. This is new as compared to prior study. Electronically Signed: Graham Henry MD at 12:36 EDT , Service support ,
== END ==
PROVIDERS: PCP Family Medicine; Referring Provider Family Medicine Geriatric Medicine; Visit Provider Family Medicine Geriatric Medicine
DX: M25.551 Pain in right hip (principal); M79.89 Other specified soft tissue disorders
CPT/HCPCS: 73700

== ENCOUNTER 2021-05-19 09:32 | Outpatient (CLI) | payer MEDICARE, OTHER, SELFPAY ==
[2021-05-19] VITALS (7 sets, daily range): BP systolic 106–162; BP diastolic 53–70; PULSE 72–88; RESP 16–18; TEMP 36.6–37.3; O2SAT 95–97
[2021-05-19] MEDS: Furosemide 20 MG/2 ML VIAL IV (13:14)
[2021-05-19] MEDS: 0.9% Saline Lock 10 ML Syringe IV (13:14)
--- NOTE | 2021-05-19 16:22 | NURSING ---
left ac picc line flushed w/20 ml of NS and cllamped-TCU updated on pt return
== END 2021-05-19 16:45 | disposition home or self-care (01) ==
LOC: LAB 09:36 → MS3 09:36
PROVIDERS: PCP Family Medicine; Referring Provider Family Medicine Geriatric Medicine; Visit Provider Family Medicine Geriatric Medicine
DX: D62 Acute posthemorrhagic anemia (principal)
CPT/HCPCS: 96374; 36415; 36430; 86850; 86900; 86901; 86920; 86922; J7040; P9040; A4216; J1940

== ENCOUNTER → 2021-07-12 11:59 | Outpatient (CLI) | payer MEDICARE, OTHER, SELFPAY ==
[2021-07-12 17:55] LABS: Absolute Lymphocyte Count 1.49 X10^3/uL (0.83-4.51); Absolute Neutrophil Count 2.7 X10^3/uL (2.0-7.7); Basophil# 0.04 X10^3/uL; Basophil% 0.8 % (0-1); Eosinophil# 0.28 X10^3/uL; Eosinophils% 5.8 % (0-5); Hematocrit 40.2 % (37-47); Hemoglobin 12.6 g/dL (12.0-15.0); Lymphocyte # 1.49 X10^3/ul (0.83-4.51); Mean Corp Hgb Conc 31.3 g/dL (32-36); Mean Corpuscular Hgb 26.6 pg (27.0-32.0); Mean Platelet Vol. 10.3 fl (6.2-12.0); Monocyte# 0.31 X10^3/uL; Monocyte% 6.4 % (0-10); NRBC Flagged by Analyzer 0 % (0-5); Neutrophil # 2.68 X10^3/uL (2.7-7.7); Neutrophil % 55.8 % (47-70); Platelet Count 209 K/mm3 (150-450); RBC Distribution Width SD 46.1 fl (35.1-43.9); Red Blood Count 4.73 M/mm3 (4.2-5.4); White Blood Count 4.8 K/mm3 (4.4-11.0)
[2021-07-12 18:35] LABS: Vitamin B12 980 pg/mL (211-911)
[2021-07-12 19:00] LABS: ALB/GLOB Ratio 0.8 RATIO (0.9-2.4); AST(SGOT) 15 U/L (15-37); Alanine Aminotransfer ALT/SGPT 19 U/L (13-56); Albumin, Serum 3.4 g/dL (3.2-5.0); Alkaline Phosphatase 78 U/L (45-117); Anion Gap 5 (5-15); BUN 11 mg/dL (7-18); BUN/Creat Ratio 10.9 RATIO (10-20); Chloride 106 mmol/L (98-107); Creatinine, Serum 1.01 mg/dL (0.55-1.02); EST Glomerular Filtration Rate 56 mL/min (>60); Est Glom Filt Rate - Afr Amer 68 mL/min (>60); Ferritin 195 ng/mL (8-252); Globulin 4.4 g/dL (2.2-4.2); Glucose 77 mg/dL (74-106); Potassium 4.7 mmol/L (3.5-5.1); Protein, Total 7.8 g/dL (6.4-8.2); Sodium Level 140 mmol/L (136-145)
[2021-07-17 12:12] LABS: Copper, Serum or Plasma 157 ug/dL (80-158); Zinc, Plasma or Serum 107 ug/dL (44-115)
== END ==
PROVIDERS: PCP Family Medicine; Referring Provider Family Medicine; Visit Provider Family Medicine
DX: D64.9 Anemia, unspecified (principal); R43.0 Anosmia
CPT/HCPCS: 36415; 80053; 82525; 82607; 82728; 82746; 84630; 85025

== ENCOUNTER 2021-09-11 12:30 | Outpatient (RCR) | payer MEDICARE, OTHER, SELFPAY ==
--- NOTE | 2021-07-16 17:52 | HP.PTEVAL ---
Patient's Visit Information ROBERT READ is a 80 year old F referred to Physical Therapy by Dr. Robbie Sanchez MD with a diagnosis of PRESENCE OF RIGHT ARTIFICIAL JOINT/WEAKNESS. Date of Evaluation: 07/16/21 Physical Therapist: Tameka Berger PT, Cert MDT - Visit Plan Frequency: 2-3x /Week Duration: 4-6 Weeks Plan: FOLLOW UP WITH PATIENTS PROGRESS ON OBTAINING A HEEL LIFT. GAIT AND BALANCE TRAINING. *FALL RISK. USE GAIT BELT*. POSTURE CORRECTION/STRENGTHENING, INSTRUCTION IN APPROPRIATE BODY MECHANICS AND ACTIVITY MODIFICATIONS. DLS WITH A NEUTRAL SPINE TOLERATED. DONG LE ROM, STRETCHING AND STRENGTHENING. HEP INSTRUCTION. - Subjective Work/Leisure: RETIRED. Present symptoms: DONG HIP PAIN RIGHT > LEFT. ALSO WITH C/O LBP. Present since: YEARS. Pain Scale: WORST 5/10, LEAST 0/10. Currently: 0/10. Commenced as a result of: ARTHRITIS. Symptoms at onset: LEFT HIP PAIN. Worse: WALKING, GETTING IN AND OUT OF THE CAR, PUTTING PANTS ON. Better: SITTING DOWN, SHIFTING WEIGHT. Disturbed sleep: NO. Previous history/Previous treatment: L THR ABOUT 5 YEARS AGO. RIGHT THR 3-4 YEARS AGO AND A SECOND THR R (REVISION) APPROX APRIL OF 2021. Gait: PATIENT REPORTS HER RIGHT LEG IS LONGER THAN HER LEFT SINCE THE LAST SURGERY AND IT CAUSES HER TO LIMP AND PUT MORE PRESSURE ON HER LEFT HIP. PATIENT REPORTS SHE IS REALLY UPSET ABOUT IT. I'M LOPSIDED AND I DON'T THINK EX'S ARE GOING TO HELP. SHE REPORTS SHE TRIED A HEEL LIFT AT THE HOSPITAL AND IT SEEMED TO HELP. Accidents: PATIENT DENIES ANY RECENT FALLS OR MVA'S. PMH: PATIENT REPORTS HER MAIN PROBLEM IS HER ARTHRITIS. OTHER: PATIENT REPORTS SHE LIVES ALONE AT [facility]. 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 PATIENT REPORTS SHE IS HOPING TO GO TO [place] FROM SEP 15 - DECEMBER. SHE REPORTS SHE STAYS NEAR HER DAUGHTER. - Objective PATIENT IS A POOR HISTORIAN. SHE AMBULATES INDEP'LY INTO PT WITHOUT ANY ASSISTIVE DEVICES OR LOB BUT WITH A WIDE BASE OF SUPPORT AND VERY SHORT STEPS. SHE REPORTS THE DOCTOR TOLD HER TO USE A CANE BUT SHE CAN'T BECAUSE OF THE ARTHRITIS IN HER HANDS. SHE IS ABLE TO TRANSFER FROM SIT TO STAND WITHOUT UE ASSIST AND DONG LE STRENGTH IS GROSSLY 4-/5 WITH MMT'ING EXCEPT RIGHT HIP 3+/5. DONG LE LIGHT TOUCH SENSATION IS GROSSLY INTACT AND SYMMENTRICAL. HER STANDING BALANCE IS FAIR AND HER DYNAMIC BALANCE IS FAIR MINUS. SHE IS A FALL RISK. SHE IS UNABLE TO SLS ON EITHER LEG LONGER THAN A SECOND OR SO TO ADVANCE THE OPPOSITE LE. DONG KNEE FLEX ROM IS WFL. LEFT KNEE EXT ROM IS FULL AND RIGHT KNEE EXT ROM IS -8 DEG. DONG HIP FLEX ROM IS APPROX 100 DEG AND PATIENT DENIES INCREASED PAIN WITH LE ROM AND STRENGTH TESTING. RIGHT LE IS LONGER THAN LEFT. SHE IS EXPRESSING GREAT FRUSTRATION WITH HER RIGHT LE BEING LONGER THAN HER LEFT AND REPORTS THAT THE PT'S TRIED A HEEL LIFT IN HER LEFT SHOE AT THE HOSPITAL AND IT SEEMED TO HELP BUT SHE DOESN'T HAVE ONE NOW. THIS PT TRIED AN OTC HEEL LIFT OF 1/4 INCH IN LEFT SHOE IN CLINIC TODAY AND PATIENT REPORTED DECREASED PAIN IN BACK AND HIPS BUT DEMO'D AND REPORTED INCRASED BALANCE PROBLEMS. THIS PT SUGGESTED ORTHO OR PODIATRY SPECIALTY CONSULT FOR OTC VS CUSTOM HEEL LIFT OR ORTHOTICS AND PATIENT MIGHT DO BETTER WITH A FULL SHOE LENGTH LIFT VS HEEL LIFT WE HAVE HERE. PATIENT IS AGREEABLE. CORE STRENGTH IS POOR. - Balance/Special Test Scores Lower Extremity Functional Score: 17 - Goals Goal 1:: INDEP AND SAFE GAIT ON LEVEL SURFACES WITH LEAST DEVIATIONS. Goal Time Frame: 4-6 Weeks Goal 2:: INCREASE FUNCTIONAL ROM OF LE'S TO EASE ADL'S. Goal Time Frame: 4-6 Weeks Goal 3:: INCRASED FUNCTIONAL CORE AND LE STRENGTH TO EASE ADL'S. Goal Time Frame: 4-6 Weeks Goal 4:: PATIENT WILL BE INDEP WITH A HEP FOR CONTINUED IMPROVEMENT ONCE FORMAL PHYSICAL THERAPY CONCLUDES. Goal Time Frame: 4-6 Weeks - Anticipated Interventions Patient/Client Instruction: Educate patient on: Condition, Plan of Care, Risk Factors For the Purpose of:: To improve self management Therapeutic Exercise to Include: Strength training, Balance training, Body mechanics, Postural training, Flexibilty training, Gait and locomotor training, Neuromotor development, Dynamic Lumbar Stabilization For the Purpose of:: To improve muscle performance and motor function Thank you for the opportunity to evaluate your patient. For Medicare and Medicare HMO plans, please review the plan of care and approve it. It will need to be FAXED BACK to us at [phone] for Medicare purposes. For Medicare only, by signing this I certify the plan of care. Please let me know if there are questions or concerns regarding this plan of care. Physician Signature: Date:
--- NOTE | 2021-08-13 12:33 | HP.PTREVAL ---
Dr. Robbie Sanchez MD, It has been my pleasure to treat ROBERT READ over the last 8 visits for PRESENCE OF RIGHT ARTIFICIAL JOINT/WEAKNESS. Please see the progress note below for an update on the physical therapy plan of care! Subjective: PATIENT REPORTS SHE IS A LITTLE MORE MOBILE SINCE STARTING PT. PATIENT PRESENTS WITH C/O GENERALIZED DONG HIP AND KNEE PAIN 3/10 WALKING IN BUT NO PAIN IN SITTING. PATIENT REPORTS SHE IS IMPROVING AND NEEDS MORE THERAPY. SHE STATES SHE NEEDS THE HELP WITH MORE EX TO GET STRONGER. I NEED MORE STRENGTH AND MOBILITY. PATIENT DENIES ANY RECENT FALLS. PATIENT REPORTS FOLLOW UP WITH DR. SANCHEZ PENDING FRIDAY. REPORTS SHE PLANS TO TALK TO DR. SANCHEZ ABOUT HER RIGHT LEG BEING LONGER SINCE SURGERY. STATES SHE TRIED A L HEEL LIFT BUT DIDN'T LIKE IT. PATIENT REPORTS SHE LIKES HER CURRENT SHOES (SMALL HEEL AND NO BACK) AND DOES NOT WANT TO CHANGE THEM. Objective/Function: PATIENT WAS SEEN TODAY FOR RE-ASSESSMENT OF PROGRESS TOWARD THE SET PT GOALS AND THE NEED FOR FURTHER PHYSICAL THERAPY VS READINESS FOR DISCHARGE. PATIENT IS MAKING SLOW PROGRESS WITH PT AND IS A GOOD CANDIDATE TO CONTINUE PT BASED ON PROGRESS MADE AND ROOM FOR FURTHER IMPROVEMENT. PATIENT IS AGREEABLE. THIS PT ENCOURAGED MORE SUPPORTIVE FOOTWARE AND PATIENT IS RELUCTANT. ALSO RECOMMENDED CANE FOR SAFETY AND RESISTANT TO THIS ALSO. UPON EXAM TODAY: DONG LLE STRENGTH IS GROSSLY 5/5 WITH MMT'ING EXCEPT RIGHT HIP 4/5. RIGHT LE STRENGTH: HIP 4-/5, KNEE 4/5 AND ANKLE 5/5. LEFT KNEE EXT ROM IS FULL AND RIGHT KNEE EXT ROM IS IS NOW FULL AND SHE CAN FLEX HER RIGHT KNEE TO 127 DEG. PATIENT IS NOW ABLE TO SLS ON THE RIGHT LE X APPROX 6 SEC AND THE L LE X 4 SEC WITHOUT UE ASSIST. INSTRUCTED IN SLS EX AT HOME AT [facility]ITCH[facility] DAILY - PATIENT AGREEABLE. Plan Plan: GAIT AND BALANCE TRAINING. *FALL RISK. USE GAIT BELT* INSTRUCT IN AND GIVE WRITTEN HEP ADDITIONS INDICATED. POSTURE CORRECTION/STRENGTHENING, INSTRUCTION IN APPROPRIATE BODY MECHANICS AND ACTIVITY MODIFICATIONS. DLS WITH A NEUTRAL SPINE TOLERATED. DONG LE ROM, STRETCHING AND STRENGTHENING. HEP INSTRUCTION. Balance/Gait/Functional tests - Balance/Special Test Scores Lower Extremity Functional Score: 23 Goals Goal 1:: INDEP AND SAFE GAIT ON LEVEL SURFACES WITH LEAST DEVIATIONS. Goal Time Frame: 4-6 Weeks Goal Progress: Progressing Goal 2:: INCREASE FUNCTIONAL ROM OF LE'S TO EASE ADL'S. Goal Time Frame: 4-6 Weeks Goal Progress: Progressing Goal 3:: INCRASED FUNCTIONAL CORE AND LE STRENGTH TO EASE ADL'S. Goal Time Frame: 4-6 Weeks Goal Progress: Progressing Goal 4:: PATIENT WILL BE INDEP WITH A HEP FOR CONTINUED IMPROVEMENT ONCE FORMAL PHYSICAL THERAPY CONCLUDES. Goal Time Frame: 4-6 Weeks Goal Progress: Progressing Anticipated Interventions Patient/Client Instruction: Educate patient on: Condition, Plan of Care, Risk Factors For the Purpose of:: To improve self management Therapeutic Exercise to Include: Strength training, Balance training, Body mechanics, Postural training, Flexibilty training, Gait and locomotor training, Neuromotor development, Dynamic Lumbar Stabilization For the Purpose of:: To improve muscle performance and motor function Please do not hesitate to contact me at [phone] by phone or if you have questions or concerns regarding this new plan of care! Sincerely, Tameka Berger, PT, Cert MDT
== END 2021-09-11 19:00 | disposition home or self-care (01) ==
LOC: PT 12:30
PROVIDERS: PCP Family Medicine; Referring Provider Specialist; Visit Provider Specialist
DX: Z47.1 Aftercare following joint replacement surgery (principal); Z96.641 Presence of right artificial hip joint; R53.1 Weakness
CPT/HCPCS: 97110; 97162; 97164

== ENCOUNTER → 2022-03-05 | Outpatient (CLI) | payer MEDICARE, OTHER, SELFPAY ==
[2022-03-05 15:41] LABS: Absolute Lymphocyte Count 1.76 X10^3/uL (0.83-4.51); Absolute Neutrophil Count 3.4 X10^3/uL (2.0-7.7); Basophil# 0.05 X10^3/uL; Basophil% 0.9 % (0-1); Eosinophil# 0.21 X10^3/uL; Eosinophils% 3.6 % (0-5); Hematocrit 42.3 % (37-47); Hemoglobin 13.7 g/dL (12.0-15.0); Lymphocyte # 1.76 X10^3/ul (0.83-4.51); Lymphocyte % 30.1 % (19-41); Mean Corp Hgb Conc 32.4 g/dL (32-36); Mean Corpuscular Hgb 27.7 pg (27.0-32.0); Mean Corpuscular Volume 85.6 fL (81-99); Mean Platelet Vol. 10.3 fl (6.2-12.0); Monocyte# 0.43 X10^3/uL; Monocyte% 7.4 % (0-10); NRBC Flagged by Analyzer 0 % (0-5); Neutrophil # 3.38 X10^3/uL (2.7-7.7); Neutrophil % 57.8 % (47-70); Platelet Count 215 K/mm3 (150-450); RBC Distribution Width CV 14.1 % (11.6-14.6); RBC Distribution Width SD 43.8 fl (35.1-43.9); Red Blood Count 4.94 M/mm3 (4.2-5.4); White Blood Count 5.8 K/mm3 (4.4-11.0)
[2022-03-05 15:49] LABS: Albumin, Serum 3.5 g/dL (3.2-5.0); BUN 13 mg/dL (7-18); BUN/Creat Ratio 12.6 RATIO (10-20); Calcium,Total 9.5 mg/dL (8.5-10.1); Chloride 108 mmol/L (98-107); Creatinine, Serum 1.03 mg/dL (0.55-1.02); EST Glomerular Filtration Rate 55 mL/min (>60); Est Glom Filt Rate - Afr Amer 66 mL/min (>60); Glucose 99 mg/dL (74-106); Phosphorus 2.9 mg/dL (2.5-4.9); Potassium 3.8 mmol/L (3.5-5.1); Sodium Level 143 mmol/L (136-145)
[2022-03-05 18:09] LABS: Vitamin D,25 Hydroxy 69.1 ng/mL
== END | disposition home or self-care (01) ==
LOC: MFPLAB 11:40
PROVIDERS: PCP Family Medicine; Referring Provider Family Medicine; Visit Provider Family Medicine
DX: Z00.00 Encounter for general adult medical examination without abnormal findings (principal); N18.2 Chronic kidney disease, stage 2 (mild); K21.00 Gastro-esophageal reflux disease with esophagitis, without bleeding
CPT/HCPCS: 36415; 80069; 81002; 82043; 82306; 83735; 85025

== ENCOUNTER → 2022-03-14 | Outpatient (CLI) | payer MEDICARE, OTHER, SELFPAY ==
--- NOTE | 2022-03-14 14:10 | RAD_ITS ---
STUDY: LEG LENGTH SCANOGRAM COUNTER CLERK TRACTOR PARTS REASON FOR EXAM: Female, 81 years old. PRESENCE OF RIGHT ARTIFICIAL HIP JOINT/AFTERCARE OF JOINT REPLACE TECHNIQUE: Imaging of both lower extremities was obtained for measurement of leg length discrepancy. COMPARISON: None. FINDINGS: No evidence of leg length discrepancy. RAD/Bone Length IMPRESSION: No evidence of leg length discrepancy. Electronically Signed: Graham Henry MD at 12:40 EDT ,
== END | disposition home or self-care (01) ==
LOC: RAD 13:51
PROVIDERS: PCP Family Medicine; Referring Provider Specialist; Visit Provider Specialist
DX: Z96.641 Presence of right artificial hip joint (principal); Z47.1 Aftercare following joint replacement surgery
CPT/HCPCS: 77073

== ENCOUNTER → 2022-09-03 | Outpatient (CLI) | payer MEDICARE, OTHER, SELFPAY ==
--- NOTE | 2022-09-03 09:07 | RAD_ITS ---
STUDY: X-RAY - PELVIS AND BILATERAL HIPS REASON FOR EXAM: Female, 81 years old. Right hip pain. TECHNIQUE: AP view of the pelvis.? 2 views of the right hip, and 2 views of the left hip were obtained. COMPARISON: May 02, 2021. FINDINGS: There is a non-specific bowel gas pattern. Normal visualized soft tissue structures. Osteopenia. Mild arthrosis of both sacroiliac joints and the symphysis pubis, unchanged. Bilateral total hip arthroplasties in anatomic alignment with no complication identified. RAD/Hips B/L min 2 views w/ Pelvis IMPRESSION: Stable osteopenia, osteoarthritic changes and bilateral total hip arthroplasties with no complications. Electronically Signed: Gene Ken, at 10:40 EST ,
[2022-09-03 12:44] LABS: Erythrocyte Sedimentation Rate 26 mm/hr (0-30)
[2022-09-03 12:47] LABS: Hematocrit 40.1 % (37-47); Hemoglobin 12.9 g/dL (12.0-15.0); Mean Corp Hgb Conc 32.2 g/dL (32-36); Mean Corpuscular Hgb 27.8 pg (27.0-32.0); Mean Corpuscular Volume 86.4 fL (81-99); Mean Platelet Vol. 10.5 fl (6.2-12.0); Platelet Count 192 K/mm3 (150-450); RBC Distribution Width CV 13.9 % (11.6-14.6); RBC Distribution Width SD 43.4 fl (35.1-43.9); Red Blood Count 4.64 M/mm3 (4.2-5.4); White Blood Count 5.6 K/mm3 (4.4-11.0)
[2022-09-03 12:48] LABS: ALB/GLOB Ratio 1.2 RATIO (0.9-2.4); AST(SGOT) 14 U/L (15-37); Alanine Aminotransfer ALT/SGPT 13 U/L (13-56); Albumin, Serum 3.7 g/dL (3.2-5.0); Alkaline Phosphatase 74 U/L (45-117); Anion Gap 5 (5-15); BUN 16 mg/dL (7-18); BUN/Creat Ratio 18.3 RATIO (10-20); Chloride 107 mmol/L (98-107); Creatinine, Serum 0.88 mg/dL (0.55-1.02); EST Glomerular Filtration Rate 66 mL/min (>60); Est Glom Filt Rate - Afr Amer 79 mL/min (>60); Globulin 3.1 g/dL (2.2-4.2); Glucose 92 mg/dL (74-106); Potassium 4.1 mmol/L (3.5-5.1); Protein, Total 6.8 g/dL (6.4-8.2); Sodium Level 142 mmol/L (136-145)
== END | disposition home or self-care (01) ==
LOC: MTLAB 09:05
PROVIDERS: PCP Family Medicine; Referring Provider Psychiatry & Neurology Neurology; Visit Provider Psychiatry & Neurology Neurology
DX: E78.5 Hyperlipidemia, unspecified (principal); M25.551 Pain in right hip
CPT/HCPCS: 36415; 73521; 80053; 85027; 85652

== ENCOUNTER 2024-02-16 19:19 | Emergency (ER) | payer MEDICARE, OTHER, SELFPAY ==
[2024-02-16 19:20] VITALS: BP 137/88; PULSE 89; RESP 16; TEMP 36.2; O2SAT 93
[2024-02-16 19:23] VITALS: BP 137/88; PULSE 89; RESP 16; TEMP 36.2; O2SAT 93
[2024-02-16 20:14] VITALS: BMI 29.2
[2024-02-16 20:15] VITALS: BP 136/69; PULSE 73; RESP 16; TEMP 36.7; O2SAT 97
--- NOTE | 2024-02-16 20:17 | RAD_ITS ---
EXAM: XR RIGHT HIP WITH PELVIS WHEN PERFORMED, 2 OR 3 VIEWS CLINICAL INDICATION: Pain TECHNIQUE: Two or three views of the right hip with pelvis when performed. COMPARISON: No relevant prior studies available. FINDINGS: BONES/JOINTS: Bilateral hip arthroplasty. Degenerative changes in the lower lumbar spine. No destructive or sclerotic lesions. Note that overlapping bowel shadows may however obscure fine detail. SI joints appear symmetric with mild arthrosis. No widening of the pubic symphysis. No evidence of an acute fracture or dislocation. SOFT TISSUES: Nonspecific calcifications within the right hemipelvis. Otherwise, no significant abnormality. No soft tissue swelling or gas. VASCULATURE: Vascular calcifications. RAD/HIP, UNI W/ Pelvis 2-3 Views IMPRESSION: 1. No evidence of an acute fracture or dislocation. 2. Bilateral hip arthroplasty. Electronically Signed: Ever Porter DO at 21:07 EDT ,
--- NOTE | 2024-02-16 20:18 | ED.VIS.LOWEX ---
HPI History of Present Illness Chief Complaint: Lower Extremity Injury Narrative Narrative: 83-year-old female presents with her son because of swelling and redness to her right hip area. She relates history that she has had 3 hip surgeries, bilateral hip replacements and revision of the 1 on the right. She has been doing physical therapy. She and the therapist noted that she was having right hip pain, looked and she has had redness with mild swelling to the area. She denies any fevers or chills, no nausea or vomiting, no other symptoms. She had a home health aide look at it today and concern was for cellulitis. Her son states that probably been reddened for about a week, and may be getting worse. She has an appoint with her primary care provider tomorrow, but presents today with a concern of cellulitis. [facility] Medical History History of revision of total replacement of right hip joint Wears glasses Dementia Alcohol use Arthritis DVT (deep venous thrombosis) Injury of head and neck Gastric reflux Former smoker Shortness of breath on exertion History of pain when walking History of edema Osteoarthritis GERD (gastroesophageal reflux disease) Biliary colic Pancreatitis Colitis History of deep vein thrombosis History of pulmonary edema Hyperlipidemia Home Medications ?Medication ?Instructions ?Recorded ?Last Taken ?Type calcium carbonate (Tums) 200 mg PO QPC PRN GERD 05/24/20 05/01/21 History omeprazole 20 mg capsule,delayed 20 mg PO PRN PRN GERD 05/29/20 05/01/21 History release donepezil 10 mg tablet 10 mg PO QAM #30 tabs 09/03/22 Unknown Rx sulfamethoxazole 800 1 tab PO BID #20 tabs 02/16/24 Unknown Rx mg-trimethoprim 160 mg tablet (Bactrim DS) Allergy/AdvReac Type Severity Reaction Status Date / Time Penicillins (PCN) Allergy Severe Swelling Verified 02/16/24 19:23 Family History Mother CAD (coronary artery disease) Father CAD (coronary artery disease) Grandmother Breast cancer Arthritis Other Vitamin D deficiency Surgical History Hx of bilateral cataract extraction Hx of hernia repair Hx of bilateral hip replacements History of esophagogastroduodenoscopy (EGD) Hx of colonoscopy Social History Smoking Status: Former smoker Tobacco: How many years used: 10 how long ago did patient quit smokin second hand exposure: No alcohol intake: current alcohol intake frequency: a few times a week Alcohol type: hard liquor substance use type: does not use what type of physical activity do you participate in: none john/sabianism: Caodaism seatbelt use: always ROS ROS ED ROS Narrative Constitutional: No fever, no chills. HEENT: No sore throat. No neck pain. No loss of vision. No rhinorrhea. Cardiovascular: No chest pain. No palpitations. No pedal edema. Respiratory: No cough, no shortness of breath. Abdominal: No abdominal pain. No nausea. No vomiting. Genitourinary: No dysuria. No hematuria. Musculoskeletal: No myalgias. Pain, swelling, and redness to right hip. Neurologic: No headaches. No dizziness. No lightheadedness. Skin: No rash. Redness to right hip area. Psychiatric: No depression. No anxiety. EXAM Physical Exam Narrative Exam Narrative: Afebrile. Vital signs noted. Nontoxic-appearing. HEENT: Normocephalic. Atraumatic. PERRL, EOMI. Neck soft and supple. No point tenderness or step off. Cardiovascular: Regular rate and rhythm. No murmurs, rubs, or gallops appreciated. Respiratory: No tachypnea. Lungs clear to auscultation bilaterally. Gastrointestinal: Abdomen soft, nontender, with normoactive bowel sounds. No rebound or guarding. Neurological: Awake. Alert. Nonfocal, nonlateralizing. Skin: No rash. Normal color with exception to right hip area which shows an area approximately 6 to 8 cm of cellulitis with induration, no fluctuance, no purulent drainage. Positive varicose veins bilateral lower extremities. Musculoskeletal: No pedal edema. Full range of motion extremities. Full range of motion of right hip without pain. Const Vital Signs: 02/16/24 19:20 02/16/24 19:23 02/16/24 20:15 Temperature 97.2 F L 97.2 F L 98.0 F Temperature Source Temporal Temporal Pulse Rate 89 89 73 Respiratory Rate 16 16 16 Blood Pressure 137/88 H 137/88 H 136/69 H Blood Pressure Mean 104 104 91 Pulse Ox 93 93 97 Oxygen Delivery Method Room Air Room Air MDM MDM MDM Narrative Medical decision making narrative: In the differential diagnosis is cellulitis versus abscess versus a combination of both. I have low concern for septic arthritis or infected hardware as patient has full range of motion of her right hip without difficulty, and she is afebrile and nontoxic-appearing. It is a localized cellulitis. She was given her first dose of Bactrim DS here in the emergency department and prescription will be written for 10 days as she has an allergy to penicillin which is swelling. She did have a wound recheck tomorrow by her primary care provider. I do not feel that this is a drainable abscess that requires incision and drainage. Her son was concerned because she had loosening hardware previously, and the home health nurse had mentioned something about obtaining an x-ray. While I do feel that there is low suspicion for loosening hardware or periprosthetic fracture or dislocation based on her clinical exam, x-rays of the right hip and pelvis were obtained and interpreted by myself independently. There is no evidence of periprosthetic fracture, no dislocation. I reviewed the radiology report which confirms my independent interpretation. At this point in time, I feel she can be discharged safely home with follow-up. Son states that she has follow-up with her primary care provider tomorrow. Return instructions to the emergency department were reviewed. Disposition is discharged home in stable condition. History & Record Review Discussion w/independent historian: Patient Radiography X-Ray: Right Hip, Read by ED Physician and Read by Radiologist Diagnostic Testing: Clinical Impression(s) from Imaging Studies Hip/Pelvis X-Ray 02/16/24 20:17 IMPRESSION: 1. No evidence of an acute fracture or dislocation. 2. Bilateral hip arthroplasty. Electronically Signed: Ever Porter DO at 21:07 EDT , Discharge Plan Triage Chief Complaint: Lower Extremity Injury ED Provider: Yeison Gaytan Dx/Rx/DC Orders Clinical Impression: Cellulitis of hip, right, History of total hip arthroplasty, Varicose veins of both lower extremities Instructions: ED Cellulitis, ED Varicose Veins Prescriptions: New sulfamethoxazole-trimethoprim [Bactrim DS] 800-160 mg tablet 1 tab PO BID Qty: 20 0RF No Action calcium carbonate [Tums] 200 mg calcium (500 mg) tablet,chewable 200 mg PO QPC PRN (Reason: GERD) donepezil 10 mg tablet 10 mg PO QAM Qty: 30 6RF omeprazole 20 MG capsule 20 mg PO PRN PRN (Reason: GERD) Primary Care Provider: Joel Kumar Referrals: Joel Kumar MD [Primary Care Provider] - 1 Day Activity Restrictions/Additional Instructions: Antibiotics as directed. Follow-up with your primary care provider tomorrow. Print Language: Syrian Disposition Disposition: Home, Self Care Discharge Date/Time: 02/16/24 22:07
[2024-02-16] MEDS: Smz/Tmp Ds Tablet 1 TABLET PO (20:41)
== END 2024-02-16 22:07 | disposition home or self-care (01) ==
PROVIDERS: Emergency Provider Emergency Medicine; PCP Family Medicine; Visit Provider Emergency Medicine
DX: L03.115 Cellulitis of right lower limb (principal); Z87.891 Personal history of nicotine dependence; Z96.643 Presence of artificial hip joint, bilateral; K21.9 Gastro-esophageal reflux disease without esophagitis; E78.5 Hyperlipidemia, unspecified; I83.93 Asymptomatic varicose veins of bilateral lower extremities
CPT/HCPCS: 73502; 99282

== ENCOUNTER 2024-02-23 15:00 | Outpatient (RCR) | payer MEDICARE, OTHER, SELFPAY ==
--- NOTE | 2024-01-23 13:28 | HP.PTEVAL_ITS ---
Patient's Visit Information Visit Information Visit Information: ROBERT READ is a 83 year old F referred to Physical Therapy by Dr. Joel Kumar MD with a diagnosis of B PFItis and hip pain. Date of Evaluation: 01/23/24 Physical Therapist: Joel Baird, DPT, OCS, CSCS Visit Plan Frequency: 2x /Week Duration: 4-6 Plan: 2x/week for 4-6 weeks... 1. orthoitcs, pt to buy vasyli and bring them in for cut to fit 2. LE strength exercises for hips and knee and core to HEP 3. STM and rollout to gastroc and PF with gastroc stretching and MH for PFitis. IR: seated flexion, LAQ, AP given for HEP throughtou the day, link to vasylis sent to patient, son to order. Subjective Subjective: R heel hurts, it has hurt for 3 weeks gently and insidiously. Hurts on underside of heel hurts L knee hurts. Causes her to limp and started 2-3 weeks ago. Pain is 8/10 with walking on it. Feels like bones not aligned. 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 Hips do not hurt. sleep , no problem. 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 Reads adn is on computer, sedentary, no regular exercise Basic ADLS are getting done, no steps at home but to get in. Pain R heel: Pain Intensity (Out of 10): 1 Pain Intensity Range: 0 and 5 Objective Objective: L knee stiff with ambulation and painful medially coming into PT today, I ambualtion with fair balance but antalgic L knee and not much weight shift or push off either foot. Transfers are I bed adn chair. ankle AROM limited in DF due to gastroc tightness B, tender over plantar heel R > L. knees and hips very tender in L pes anserine, B GT bursa area and gluts max tender. hip ROM 90 flexion, 17 abd and 0 ext B. knee AROM 0-130, L one stiff end range of flexion. reflexes 2/3 patella and achilles B sensation WNL to gross light touch B LE. Weakness B hips at 3/5 abd, ext, and flexion with pain B flexion, knee are 3+ ext and flexion, ankles 4- B. Balance/Special Test Scores Functional Gait Assessment Score: 22 % Disability: 26.6700 Lower Extremity Functional Score: 12 Goals Goal 1:: I use of vasyli orhotics Goal Time Frame: 2 Weeks Goal 2:: I appropriate HEp for LE ex to limit future problems Goal Time Frame: 2-4 Weeks Goal 3:: Pain in knee and hips 75% better adn 2/10 at worst Goal Time Frame: 4-6 Weeks Goal 4:: LEFS 40 Goal Time Frame: 4-6 Weeks Rehabilitation Potential Physical Therapy Diagnosis: sedentarism and pain limiting funciton Rehabilitation Potential: Good Anticipated Interventions Patient/Client Instruction: Educate patient on: Condition For the Purpose of:: To decrease pain, To improve nutrient delivery to tissue, To increase tolerance to activity/condition/position, To improve ability of phy sical actions for home/community/work/leisure and To improve gait and locomotor functions Therapeutic Exercise to Include: Strength training, Flexibilty training, Passive ROM and Active ROM For the Purpose of:: To decrease pain, To increase ROM, To improve nutrient delivery to tissue, To increase tolerance to activity/condition/position, To improve ability of physical actions for home/community/work/leisure, To improve gait and locomotor functions and To improve health of tissue Manual Therapy Techniques to Include: Mobilization and Soft tissue mobilization For the Purpose of:: To decrease pain and To improve nutrient delivery to tissue Orthotics: Shoe insert For the Purpose of:: To decrease pain Thermo therapy (hot pack): Yes Text: Thank you for the opportunity to evaluate your patient. For Medicare and Medicare HMO plans, please review the plan of care and approve it. It will need to be FAXED BACK to us at [phone] for Medicare purposes. For Medicare only, by signing this I certify the plan of care. Please let me know if there are questions or concerns regarding this plan of care. Physician Signature: Date:
--- NOTE | 2024-04-21 07:49 | HP.PT.NRP ---
Patient Information Patient Information: ROBERT READ was seen in my office for initial evaluation on 01/23/24. The following Plan of Care was established for this patient: POC Established Initial Frequency: 2x /Week Initial Duration: 4-6 Anticipated Interventions Patient/Client Instruction: Educate patient on: Condition For the Purpose of:: To decrease pain, To improve nutrient delivery to tissue, To increase tolerance to activity/condition/position, To improve ability of physical actions for home/community/work/leisure and To improve gait and locomotor functions Therapeutic Exercise to Include: Strength training, Flexibilty training, Passive ROM and Active ROM For the Purpose of:: To decrease pain, To increase ROM, To improve nutrient delivery to tissue, To increase tolerance to activity/condition/position, To improve ability of physical actions for home/community/work/leisure, To improve gait and locomotor functions and To improve health of tissue Manual Therapy Techniques to Include: Mobilization and Soft tissue mobilization For the Purpose of:: To decrease pain and To improve nutrient delivery to tissue Orthotics: Shoe insert For the Purpose of:: To decrease pain Thermo therapy (hot pack): Yes Last Seen Last Seen: This patient was last seen in our office 02/23/24. Pertinent comments regarding their Physical therapy will appear below: Pt seen for 7 visits of POC but then was sent back to PCP for check up due to miserable pain. She has not returned since and it has been over 7weeks and I will discontinue from my care. At this point I will be discontinuing this patient from physical therapy. I would be happy to see this patient again in the future if found appropriate by the physician. Thank you! Joel Baird, DPT, OCS, CSCS Balance/Gait/Functional tests Balance/Special Test Scores Functional Gait Assessment Score: 22 % Disability: 26.6700 Lower Extremity Functional Score: 12
== END 2024-02-23 19:00 | disposition home or self-care (01) ==
LOC: PT 15:00
PROVIDERS: PCP Family Medicine; Referring Provider Family Medicine; Visit Provider Family Medicine
DX: M72.2 Plantar fascial fibromatosis (principal); M25.559 Pain in unspecified hip
CPT/HCPCS: 97110; 97140; 97162

== ENCOUNTER → 2024-08-09 | Outpatient (CLI) | payer MEDICARE, OTHER, SELFPAY ==
[2024-08-09 15:16] LABS: Hemoglobin 12.1 g/dL (12.0-15.0); Mean Corp Hgb Conc 32.7 g/dL (32-36); Mean Corpuscular Hgb 28.3 pg (27.0-32.0); Mean Corpuscular Volume 86.7 fL (81-99); Platelet Count 200 K/mm3 (150-450); RBC Distribution Width CV 13.6 % (11.6-14.6); RBC Distribution Width SD 42.7 fl (35.1-43.9); Red Blood Count 4.27 M/mm3 (4.2-5.4); White Blood Count 5.5 K/mm3 (4.4-11.0)
[2024-08-09 15:17] LABS: Erythrocyte Sedimentation Rate 19 mm/hr (0-30)
[2024-08-09 15:29] LABS: ALB/GLOB Ratio 0.9 RATIO (0.9-2.4); AST(SGOT) 19 U/L (15-37); Alanine Aminotransfer ALT/SGPT 18 U/L (13-56); Albumin, Serum 3.3 g/dL (3.2-5.0); Alkaline Phosphatase 72 U/L (45-117); Anion Gap 5 (5-15); BUN 18 mg/dL (7-18); BUN/Creat Ratio 17.8 RATIO (10-20); CRP 7.49 mg/L (0.0-3.0); Calcium,Total 9.2 mg/dL (8.5-10.1); Chloride 109 mmol/L (98-107); Creatinine, Serum 1.01 mg/dL (0.55-1.02); EST Glomerular Filtration Rate 55 mL/min (>60); Est Glom Filt Rate - Afr Amer 67 mL/min (>60); Globulin 3.7 g/dL (2.2-4.2); Glucose 85 mg/dL (74-106); Sodium Level 140 mmol/L (136-145)
== END | disposition home or self-care (01) ==
PROVIDERS: PCP Family Medicine; Referring Provider Family Medicine; Visit Provider Family Medicine
DX: L03.90 Cellulitis, unspecified (principal)
CPT/HCPCS: 36415; 80053; 85027; 85652; 86140

== ENCOUNTER → 2024-08-18 | Outpatient (CLI) | payer MEDICARE, OTHER, SELFPAY ==
[2024-08-18 12:14] LABS: RBC /Synovial Fluid 0.029 10^6/uL (0); Synovial Fld Mononuclear WBC # 2.088 10^3/ul; Synovial Fld Mononuclear WBC % 7.1 %; Synovial Fld Polynuclear WBC % 92.9 %
[2024-08-18 12:33] LABS: AUTO B FLUID DILUENT BKGD CT WBC <0.1 RBC <0.01 (W<.1,R<.01); Source / Synovial Fluid HIP
[2024-08-18 12:34] LABS: Appearance /Synovial Fluid Cloudy (CLEAR); Color / Synovial Fluid Pink (Pale Yellow)
[2024-08-18 13:08] LABS: Body Fluid QC Type(s) BF1Q; Lymph 5 %; Monocyte /Synovial Fluid 4 %; Neutrophil 91 % (0-25)
[2024-08-19 14:44] LABS: Pathologist Comment Reviewed
== END | disposition home or self-care (01) ==
LOC: LABSPEC 11:29
PROVIDERS: PCP Family Medicine; Referring Provider Specialist; Visit Provider Specialist
DX: T84.51XA Infection and inflammatory reaction due to internal right hip prosthesis, initial encounter (principal); M96.842 Postprocedural seroma of a musculoskeletal structure following a musculoskeletal system procedure; X58.XXXA Exposure to other specified factors, initial encounter
CPT/HCPCS: 87015; 87070; 87075; 87101; 87116; 87205; 87206; 89050; 89051

== ENCOUNTER 2025-01-29 17:28 | Emergency (ER) | payer MEDICARE, OTHER, SELFPAY ==
[2025-01-29 17:29] VITALS: BP 178/82; PULSE 86; RESP 18; TEMP 36.9; O2SAT 98; BMI 34.4
[2025-01-29 17:35] VITALS: BP 131/74; PULSE 92; O2SAT 98
--- NOTE | 2025-01-29 17:39 | CT_ITS ---
PROCEDURE: SPINE CERVICAL WITHOUT CONTRAS 01/29/2025 REASON FOR EXAM: HEAD INJURY, NECK PAIN TECHNIQUE: Cervical spine CT without contrast. Coronal and Sagittal reconstruction series were provided. One or more dose reduction techniques were used (e.g., Automated exposure control, adjustment of the mA and/or kV according to patient size, use of iterative reconstruction technique COMPARISON: None FINDINGS: Alignment: Straightening of the cervical lordosis. Atlantoaxial interval is maintained. Grade 1 anterolisthesis of C3 on C4. Vertebrae: Vertebral body heights are maintained. Multilevel loss of disc space throughout the cervical spine, most prominent at C4-C5. no acute fracture or traumatic subluxation. No suspicious lytic or blastic lesion. Multilevel degenerative changes, with up to mild canal stenosis and moderate neural foraminal narrowing most prominent at C4-C5. Soft Tissues: Soft tissues of the neck are unremarkable. Imaged lung apices are unremarkable. CT/Spine Cervical without Contras IMPRESSION: No acute fracture or traumatic subluxation. Degenerative changes, most prominent at C4-C5. Reading Location: [facility]
--- NOTE | 2025-01-29 17:39 | CT_ITS ---
PROCEDURE: BRAIN/HEAD WITHOUT CONTRAST 01/29/2025 REASON FOR EXAM: HEAD INJURY TECHNIQUE: Head CT without intravenous contrast. Coronal and Sagittal reconstruction series were provided. One or more dose reduction techniques were used (e.g., Automated exposure control, adjustment of the mA and/or kV according to patient size, use of iterative reconstruction technique. COMPARISON: CT brain 08/15/2020 and MRI brain 04/20/2021 FINDINGS: No acute intracranial hemorrhage, mass, mass effect, midline shift or pathologic extra-axial fluid collection. Mild parenchymal atrophy with commensurate increase in CSF containing spaces. Patchy white matter hypodensities, patient demographics favor chronic microvascular ischemic changes. Mild-moderate paranasal sinus mucosal thickening. Mastoid air cells are clear. The calvarium is grossly intact. CT/Brain/Head without Contrast IMPRESSION: No acute intracranial abnormality. Chronic microvascular ischemia and involutional changes. Reading Location: [facility]
--- NOTE | 2025-01-29 17:43 | EX.ED.DYSGE1 ---
HPI <NIKOLAI Jenkins - Last Filed: 01/29/25 21:11> History of Present Illness Chief Complaint: Fall Narrative Narrative: Patient presenting today due to a mechanical fall that occurred this evening. She slipped and fell backwards, hitting her head on a counter causing a small laceration and also reports pain to her left mid humerus. She does have a history of dementia, she is coming from [place]. She denies any other injury. She is unsure of her last tetanus. PFSH <NIKOLAI Jenkins - Last Filed: 01/29/25 21:11> [facility] Medical History Wears glasses Dementia Alcohol use Arthritis DVT (deep venous thrombosis) Injury of head and neck Gastric reflux Former smoker Shortness of breath on exertion History of pain when walking History of edema Osteoarthritis GERD (gastroesophageal reflux disease) Biliary colic Pancreatitis Colitis History of deep vein thrombosis History of pulmonary edema Hyperlipidemia Home Medications ?Medication ?Instructions ?Recorded ?Last Taken ?Type calcium carbonate (Tums) 200 mg PO QPC PRN GERD 05/24/20 05/01/21 History omeprazole 20 mg capsule,delayed 20 mg PO PRN PRN GERD 05/29/20 05/01/21 History release donepezil 10 mg tablet 10 mg PO QAM #30 tabs 09/03/22 Unknown Rx sulfamethoxazole 800 1 tab PO BID #20 tabs 02/16/24 Unknown Rx mg-trimethoprim 160 mg tablet (Bactrim DS) Allergy/AdvReac Type Severity Reaction Status Date / Time Penicillins (PCN) Allergy Severe Swelling Verified 01/29/25 17:32 Family History Mother CAD (coronary artery disease) Father CAD (coronary artery disease) Grandmother Breast cancer Arthritis Other Vitamin D deficiency Surgical History History of revision of total replacement of right hip joint Hx of bilateral cataract extraction Hx of hernia repair Hx of bilateral hip replacements History of esophagogastroduodenoscopy (EGD) Hx of colonoscopy Social History housing: assisted living facility Smoking Status: Former smoker Tobacco: How many years used: 10 how long ago did patient quit smokin second hand exposure: No alcohol intake: current alcohol intake frequency: a few times a week Alcohol type: hard liquor substance use type: does not use what type of physical activity do you participate in: none john/orthodoxy: Scientologist seatbelt use: always ROS <NIKOLAI Jenkins - Last Filed: 01/29/25 21:11> ROS ED Constitutional Constitutional ED: Denies chills or fever(s) Cardiovascular Cardiovascular: Denies chest pain Respiratory/Chest Respiratory/Chest: Denies dyspnea Gastrointestinal Gastrointestinal: Denies abdominal pain, nausea or vomiting Musculoskeletal Musculoskeletal: Reports arthralgias; Denies neck pain Integumentary Reports laceration Neurologic Neurologic: Denies paresthesias EXAM <NIKOLAI Jenkins - Last Filed: 01/29/25 21:11> Physical Exam Const Vital Signs: 01/29/25 17:29 01/29/25 17:35 01/29/25 17:35 Temperature 98.4 F Temperature Source Oral Pulse Rate 86 92 Respiratory Rate 18 Respiratory Effort Normal Non-Labored Respiratory Depth Normal Respiratory Pattern Normal Blood Pressure 178/82 H 131/74 H Blood Pressure Mean 114 93 Pulse Ox 98 98 98 Oxygen Delivery Method Room Air Room Air 01/29/25 19:10 Temperature 98.2 F Temperature Source Pulse Rate 85 Respiratory Rate 18 Respiratory Effort Respiratory Depth Respiratory Pattern Blood Pressure 104/71 Blood Pressure Mean 82 Pulse Ox 99 Oxygen Delivery Method Positive well nourished, well developed and no apparent distress General Appearance ED: well developed HEENT Reports normocephalic and head/scalp atraumatic HEENT Narrative: 0.5 Centimeter full-thickness linear laceration to the left posterior scalp Mouth ED: Yes moist mucous membranes normal Eyes PERRL and EOMs intact bilaterally Neck full ROM and supple Neck Narrative: Minimal mid midline cervical tenderness on exam Chest Wall inspection of chest normal Resp normal respiratory effort and clear to auscultation bilaterally Cardio regular rate and regular rhythm GI soft to palpation, non-tender, non-distended and no masses Back/Spine normal ROM and normal to inspection Extremity Extremity Narrative: Tenderness to the left mid to proximal humerus, left radial pulse 2+, good cap refill, sensation intact. No pain to palpation to the left shoulder or clavicle Neuro CN's II-XII intact bilaterally, moves all extremities, no focal motor deficits and no sensory deficits noted Sensorium / Orientation: awake and alert Psych mental status grossly normal and thought process normal Skin Skin Narrative: Aside from laceration to the left posterior scalp, no other rashes or lesions noted. <Dr. Cash Almaguer DO - Last Filed: 01/29/25 22:29> Physical Exam Const Vital Signs: 01/29/25 17:29 01/29/25 17:35 01/29/25 17:35 Temperature 98.4 F Temperature Source Oral Pulse Rate 86 92 Respiratory Rate 18 Respiratory Effort Normal Non-Labored Respiratory Depth Normal Respiratory Pattern Normal Blood Pressure 178/82 H 131/74 H Blood Pressure Mean 114 93 Pulse Ox 98 98 98 Oxygen Delivery Method Room Air Room Air 01/29/25 19:10 Temperature 98.2 F Temperature Source Pulse Rate 85 Respiratory Rate 18 Respiratory Effort Respiratory Depth Respiratory Pattern Blood Pressure 104/71 Blood Pressure Mean 82 Pulse Ox 99 Oxygen Delivery Method MDM <NIKOLAI Jenkins - Last Filed: 01/29/25 21:11> [facility] Narrative Medical decision making narrative: Patient presenting today due to a mechanical fall that occurred this evening. She slipped and fell backwards hitting her head on a counter. She also injured her left arm and has pain to the left mid to proximal humerus. X-ray will be obtained to assess for fracture. Head CT will be obtained to assess for intracranial bleed. Cervical spine CT will be obtained to assess for fracture. CTs are negative for acute findings. X-ray of the left humerus negative for fracture. She was given Tylenol here for pain and tetanus was updated. She will be given an Christopher wrap for her arm. RICE instructions discussed, she can take Tylenol as needed for her pain. Recommended following up with her PCP and she will be discharged home in stable condition. Radiography X-Ray: Read by ED Physician Diagnostic Testing: Clinical Impression(s) from Imaging Studies Brain CT 01/29/25 17:39 IMPRESSION: No acute intracranial abnormality. Chronic microvascular ischemia and involutional changes. [facility] Cervical Spine CT 01/29/25 17:39 IMPRESSION: No acute fracture or traumatic subluxation. Degenerative changes, most prominent at C4-C5. Reading Location: [facility] Humerus X-Ray 01/29/25 18:00 IMPRESSION: No acute fracture or dislocation. Moderate osteoarthritis. Reading [facility] <Dr. Cash Almaguer, DO - Last Filed: 01/29/25 22:29> [facility] Narrative Medical decision making narrative: Patient presenting today due to a mechanical fall that occurred this evening. She slipped and fell backwards hitting her head on a counter. She also injured her left arm and has pain to the left mid to proximal humerus. X-ray will be obtained to assess for fracture. Head CT will be obtained to assess for intracranial bleed. Cervical spine CT will be obtained to assess for fracture. CTs are negative for acute findings. X-ray of the left humerus negative for fracture. She was given Tylenol here for pain and tetanus was updated. RICE instructions discussed, she can take Tylenol as needed for her pain. Recommended following up with her PCP and she will be discharged home in stable condition. Attending note: I have personally performed a face to face assessment of the patient and have reviewed the LOUISE note. I personally made/approved the management plan and take responsibility for the patient management. I performed a substantive portion of the visit including all aspects of the following. My quiñones findings include: History of dementia sent in from facility for fall head injury left upper arm pain. Exam with abrasion right posterior scalp near her occiput dried blood. No laceration. Tender palpation mid humerus left arm no deformities. No shoulder or elbow tenderness. Soft compartments. Trauma scans head and neck obtained no acute process. Two-view humeral x-ray inter myself and read by radiologist no fractures noted. Son is present. Will treat her with Tylenol. Abrasion cleansed by nursing. Discharge home to facility with son. Radiography Diagnostic Testing: Clinical Impression(s) from Imaging Studies Brain CT 01/29/25 17:39 IMPRESSION: No acute intracranial abnormality. Chronic microvascular ischemia and involutional changes. [facility] Cervical Spine CT 01/29/25 17:39 IMPRESSION: No acute fracture or traumatic subluxation. Degenerative changes, most prominent at C4-C5. Reading Location: [facility] Humerus X-Ray 01/29/25 18:00 IMPRESSION: No acute fracture or dislocation. Moderate osteoarthritis. Reading Location: [facility] Discharge Plan Triage Chief Complaint: Fall ED Midlevel Provider: Penelope Claire ED Provider: Cash Almaguer Dx/Rx/DC Orders Clinical Impression: Abrasion of scalp, CHI (closed head injury), Contusion of arm, left, Tetanus toxoid vaccination administered at current visit, Fall Instructions: ED Abrasion, ED Contusion, Upper Extremity, ED Head Injury (Adult) Prescriptions: No Action calcium carbonate [Tums] 200 mg calcium (500 mg) tablet,chewable 200 mg PO QPC PRN (Reason: GERD) donepezil 10 mg tablet 10 mg PO QAM Qty: 30 6RF omeprazole 20 MG capsule 20 mg PO PRN PRN (Reason: GERD) sulfamethoxazole-trimethoprim [Bactrim DS] 800-160 mg tablet 1 tab PO BID Qty: 20 0RF Primary Care Provider: Joel Kumar Referrals: Joel Kumar MD [Primary Care Provider] - Activity Restrictions/Additional Instructions: CT head neck neck for fracture or intracranial hemorrhage. Left arm x-ray negative for fracture. Use Tylenol up to 1 g every 6 hours as needed. Tetanus was updated on this visit. Print Language: Slovenian Disposition Disposition: Home, Self Care Discharge Date/Time: 01/29/25 19:12
--- NOTE | 2025-01-29 18:00 | RAD_ITS ---
PROCEDURE: HUMERUS MIN 2 VIEWS 01/29/2025 REASON FOR EXAM: PAIN, FALL TECHNIQUE: 2 view(s) of the left humerus. COMPARISON: None FINDINGS: No acute fracture or dislocation. Moderate glenohumeral and acromioclavicular osteoarthritis. No focal soft tissue abnormality. RAD/Humerus min 2 Views IMPRESSION: No acute fracture or dislocation. Moderate osteoarthritis. Reading Location: [facility]
[2025-01-29] MEDS: Diphth,Pertuss(Acell),Tet Vac 0.5 ML Vial IM (18:08)
[2025-01-29] MEDS: Acetaminophen 500 MG Tablet 1000 MG PO (18:38)
[2025-01-29 19:10] VITALS: BP 104/71; PULSE 85; RESP 18; TEMP 36.8; O2SAT 99
== END 2025-01-29 19:12 | disposition home or self-care (01) ==
PROVIDERS: Emergency Provider Emergency Medicine; PCP Family Medicine; Referring Provider Emergency Medicine; Visit Provider Emergency Medicine
DX: S01.01XA Laceration without foreign body of scalp, initial encounter (principal); F03.90 Unspecified dementia, unspecified severity, without behavioral disturbance, psychotic disturbance, mood disturbance, and anxiety; M25.512 Pain in left shoulder; Z87.891 Personal history of nicotine dependence; K21.9 Gastro-esophageal reflux disease without esophagitis; E78.5 Hyperlipidemia, unspecified; S09.90XA Unspecified injury of head, initial encounter; Z23 Encounter for immunization; W01.190A Fall on same level from slipping, tripping and stumbling with subsequent striking against furniture, initial encounter
CPT/HCPCS: 70450; 72125; 73060; 90471; 90715; 99284